=== PATIENT | female | born 1950 | race Caucasian/White ===

== ENCOUNTER → 2019-11-21 08:21 | Outpatient (BNVA) | payer MEDICARE, MEDICAID, SELFPAY | PROVIDERS: Family Provider Family Medicine; PCP Nurse Practitioner Family; Referring Provider Family Medicine; Visit Provider Anesthesiology Pain Medicine | DX: M54.2 Cervicalgia (principal); M54.16 Radiculopathy, lumbar region; M51.36 Other intervertebral disc degeneration, lumbar region; M43.06 Spondylolysis, lumbar region; M48.061 Spinal stenosis, lumbar region without neurogenic claudication; M47.816 Spondylosis without myelopathy or radiculopathy, lumbar region; M54.9 Dorsalgia, unspecified; F17.210 Nicotine dependence, cigarettes, uncomplicated; Z79.891 Long term (current) use of opiate analgesic | CPT/HCPCS: 99204 ==

== ENCOUNTER 2019-12-03 08:22 | Outpatient (CLI) | payer MEDICARE, MEDICAID, SELFPAY ==
--- NOTE | 2019-12-03 08:45 | MR_ITS ---
WS: [id number] MRI LUMBAR SPINE NONCONTRAST HISTORY: M54.16 Radiculopathy, lumbar region COMPARISON: None available. TECHNIQUE: Sagittal and axial multisequence imaging is submitted. Moderate increase in thoracic kyphosis. Mild degenerative disc disease throughout the cervical and th oracic spine. There is facet joint arthritis at T10-11 with mild encroachment upon the RIGHT lateral thecal sac. Posterior lumbar alignment is normal. Disc desiccation and narrowing throughout the lumbar spine. Endplate osteophytes are small at all lev els. Schmorl's node defect along the superior endplate of L3. There is an area of decreased signal on the T1 sequences within the adjacent L2 and L3 endplates. Increased signal in the adjacent endplates of L3 and L4 to the RIGHT. Conus terminates normally at L1-2 disc level. L1-L2: Bilateral mild facet arthropathy, LEFT greater than RIGHT and osteophytic ridging. Mild LEFT f oraminal stenosis. L2-L3: Diffuse annular disc bulging with moderate ligamentum flavum hypertrophy and facet arthritis. Slightly greater degenerative changes on the LEFT. There is a broad-based LEFT foraminal disc protrus ion contacting the LEFT L2 nerve root. Moderate LEFT foraminal stenosis. L3-L4: Mild annular disc bulging and osteophytic ridging. Facet joint arthritis and ligamentum flavum hypertrophy. There is mild bilateral foraminal narrowing. L4-L5: Diffuse annular disc bulging and small osteophytes. Mild ligamentum flavum arthritis and facet arthritis. No central stenosis. Moderate to severe RIGHT and mild LEFT foraminal stenosis. L5-S1: Mild annular disc bulging and osteophytic ridging. Mild facet joint arthritis. Central disc pr otrusion with annular fissure without contact on the thecal sac. Moderate to severe RIGHT and mild LE FT foraminal stenosis. Visualized retroperitoneum is negative for acute process. Mild atherosclerosis aorta. MR/MR lumbar spine wo con* [id number] IMPRESSION: 1. Moderate to severe RIGHT foraminal stenosis at L4-5 and L5-S1 due to combin ation of degenerative factors as above. 2. Moderate LEFT foraminal stenosis at L2-3 with a small LEFT foraminal disc p rotrusion contributing to the stenosis. 3. Multilevel degenerative disc disease with multifocal areas of marrow edema and osteochondrosis. No adjacent inflammatory process or fluid to suggest infec tion.
--- NOTE | 2019-12-03 10:43 | XRR_ITS ---
PROCEDURE INFORMATION: Exam: XR Lumbosacral Spine, 2 or 3 Views Exam date and time: 12/03/2019 11:00 AM Age: 69 years old Clinical indication: Patient HX: Chronic low back pain TECHNIQUE: Imaging protocol: XR of the lumbosacral spine, 2 or 3 views. COMPARISON: MR lumbar spine wo con* [id number] 12/03/2019 9:33 AM FINDINGS: Vertebrae: Osteopenia. Multilevel degenerative change. Anatomic alignment. No instability. Gastrointestinal tract: Bowel dilatation and prominent stool. Vasculature: Prominent vascular calcification with a 3.9 cm calcified abdominal aortic aneurysm. XR/XR lumbar spine f/e only [id number] IMPRESSION: 1. Multilevel degenerative change. 2. Prominent vascular calcification with a 3.9 cm calcified abdominal aortic aneurysm.
== END 2019-12-03 08:23 | disposition home or self-care (01) ==
LOC: RADSHAW 08:29
PROVIDERS: PCP Nurse Practitioner Family; Visit Provider Anesthesiology Pain Medicine
DX: G89.29 Other chronic pain (principal); M48.061 Spinal stenosis, lumbar region without neurogenic claudication; M51.36 Other intervertebral disc degeneration, lumbar region; R60.0 Localized edema
CPT/HCPCS: 72120; 72148

== ENCOUNTER → 2019-12-05 10:00 | Outpatient (BNVA) | payer MEDICARE, MEDICAID, SELFPAY | PROVIDERS: Family Provider Family Medicine; PCP Nurse Practitioner Family; Visit Provider Anesthesiology Pain Medicine | DX: M54.2 Cervicalgia (principal); M51.36 Other intervertebral disc degeneration, lumbar region; M47.816 Spondylosis without myelopathy or radiculopathy, lumbar region; M54.16 Radiculopathy, lumbar region; M43.06 Spondylolysis, lumbar region; M48.061 Spinal stenosis, lumbar region without neurogenic claudication; M54.9 Dorsalgia, unspecified; F17.210 Nicotine dependence, cigarettes, uncomplicated; Z79.891 Long term (current) use of opiate analgesic | CPT/HCPCS: 99214 ==

== ENCOUNTER → 2019-12-19 13:35 | Outpatient (BNVA) | payer MEDICARE, MEDICAID, SELFPAY | PROVIDERS: Family Provider Family Medicine; PCP Nurse Practitioner Family; Visit Provider Anesthesiology Pain Medicine | DX: M54.16 Radiculopathy, lumbar region (principal); M54.9 Dorsalgia, unspecified; F17.210 Nicotine dependence, cigarettes, uncomplicated | CPT/HCPCS: 64483; 64484; J1040; J3490 ==

== ENCOUNTER → 2020-01-02 13:29 | Outpatient (BNVA) | payer MEDICARE, MEDICAID, SELFPAY | PROVIDERS: Family Provider Family Medicine; PCP Nurse Practitioner Family; Visit Provider Anesthesiology Pain Medicine | DX: M47.816 Spondylosis without myelopathy or radiculopathy, lumbar region (principal); M51.36 Other intervertebral disc degeneration, lumbar region; M48.061 Spinal stenosis, lumbar region without neurogenic claudication; M43.06 Spondylolysis, lumbar region; M54.16 Radiculopathy, lumbar region; M54.9 Dorsalgia, unspecified; M54.2 Cervicalgia; F17.210 Nicotine dependence, cigarettes, uncomplicated; Z79.891 Long term (current) use of opiate analgesic | CPT/HCPCS: 64483; 64484; 99212; J1040; J3490 ==

== ENCOUNTER → 2020-01-17 12:54 | Outpatient (BNVA) | payer MEDICARE, MEDICAID, SELFPAY | PROVIDERS: Family Provider Family Medicine; PCP Nurse Practitioner Family; Visit Provider Anesthesiology Pain Medicine | DX: M51.36 Other intervertebral disc degeneration, lumbar region (principal); M47.816 Spondylosis without myelopathy or radiculopathy, lumbar region; M54.16 Radiculopathy, lumbar region; M48.061 Spinal stenosis, lumbar region without neurogenic claudication; M43.06 Spondylolysis, lumbar region; M54.2 Cervicalgia; M54.9 Dorsalgia, unspecified; F17.210 Nicotine dependence, cigarettes, uncomplicated; Z79.891 Long term (current) use of opiate analgesic | CPT/HCPCS: 99213; 99214 ==

== ENCOUNTER → 2020-03-24 12:46 | Outpatient (BNVA) | payer MEDICARE, MEDICAID, SELFPAY | PROVIDERS: Family Provider Family Medicine; PCP Nurse Practitioner Family; Visit Provider Anesthesiology Pain Medicine | DX: M54.9 Dorsalgia, unspecified (principal); M51.36 Other intervertebral disc degeneration, lumbar region; M47.816 Spondylosis without myelopathy or radiculopathy, lumbar region; M54.16 Radiculopathy, lumbar region; M43.06 Spondylolysis, lumbar region; M48.061 Spinal stenosis, lumbar region without neurogenic claudication; M54.12 Radiculopathy, cervical region; F17.210 Nicotine dependence, cigarettes, uncomplicated; Z79.891 Long term (current) use of opiate analgesic | CPT/HCPCS: 99214 ==

== ENCOUNTER 2020-04-08 09:04 | Outpatient (CLI) | payer MEDICARE, MEDICAID, SELFPAY ==
--- NOTE | 2020-04-08 09:30 | MR_ITS ---
WS: [id number] MRI CERVICAL SPINE HISTORY: M54.12 - Radiculopathy, cervical region COMPARISON: None available. Normal cervical alignment. Moderate disc space narrowing and desiccation at C5-6. Remaining levels de monstrate mild degenerative disc disease. Signal within the cervical cord is normal. Visualized posterior fossa is unremarkable. Craniocervical junction, C1 and C2 relationship, odontoid process and soft tissues are normal. C2-C3: Normal. C3-C4: Normal. C4-C5: Very mild annular disc bulging. Mild osteophytic ridging contributing to mild narrowing of the foramen. No high-grade stenosis. C5-C6: Mild diffuse osteophytic ridging and a shallow RIGHT paracentral disc protrusion. Mild central stenosis with moderate bilateral foraminal stenosis. C6-C7: Diffuse osteophytic ridging with bilateral foraminal disc osteophyte complexes. Mild central s tenosis with moderate bilateral foraminal stenosis. C7-T1: Mild osteophytic ridging. Seen on the sagittal sequences is increased soft tissue thickening anterior to C6 and C7 of uncertain etiology. MR/MR cervical spin wo con* [id number] IMPRESSION: 1. Multilevel moderate degenerative disc disease and stenoses. 2. Mild central stenosis at C5-6 and C6-7 with moderate bilateral foraminal st enosis due to disc osteophyte disease. 3. Mild bilateral foraminal narrowing at C4-5. 4. Increased soft tissue thickening in the prevertebral space at the C6-7 leve l. Suggest follow-up neck CT with IV contrast for further evaluation and to exc lude infectious process or neoplasm. No prior studies for comparison.
== END 2020-04-08 09:05 | disposition home or self-care (01) ==
PROVIDERS: PCP Nurse Practitioner Family; Visit Provider Anesthesiology Pain Medicine
DX: M54.12 Radiculopathy, cervical region (principal); M50.30 Other cervical disc degeneration, unspecified cervical region; M48.02 Spinal stenosis, cervical region
CPT/HCPCS: 72141

== ENCOUNTER 2020-04-17 13:43 | Outpatient (CLI) | payer MEDICARE, MEDICAID, SELFPAY ==
--- NOTE | 2020-04-17 13:30 | USCV_ITS ---
Lissa Anne Age: 69 Gender: F : 1950 Exam Date: 04/17/2020 14:26 Ordering Phys: Lisbet Wang MD ([email or web address]) Technologist: Radha Brown Exam Location[place] [facility] [place] Indication: SEVERAL TIA'S Risk Factors: TIA Previous Vascular Surgery: None Right Brachial BP: / Left Brachial BP: / Right Left Velocity (cm/s) Spectral Plaque Velocity (cm/s) Spectral Plaque Syst/Diast Broadening Syst/Diast Broadening 92.60/ 33.10 Prox CCA 73.20 / 24.40 78.30/ 34.20 Mid CCA 68.50 / 23.40 67.30/ 27.60 Hetro Distal CCA 72.20 / 22.50 Hetro 184.00/47.40 Hetro Prox ICA 86.50 / 34.00 Hetro 165.00/32.20 Mid ICA 100.20/ 34.80 100.70/27.70 Distal ICA 102.70/ 32.30 122.20 Hetro ECA 100.40 Hetro 2.35 ICA/CCA 1.50 Antegrade Vertebral Antegrade 48.90/ 15.60 cm/s 42.10/ 15.90 cm/s Bi Subclavian Tri 93.80 56.40 CONCLUSIONS Right ICA stenosis 50-69%. Moderate atheromatous plaque right carotid bulb/ICA. Left ICA stenosis <50%. Mild atheromatous plaque left carotid bulb/ICA. Normal antegrade Doppler flow noted in the right vertebral artery. Normal antegrade Doppler flow noted in the left vertebral artery. Artemio Zepeda MD (Electronically Signed) Final Date: 17 April 2020 17:45 S
== END 2020-04-17 13:44 | disposition home or self-care (01) ==
LOC: US 13:50
PROVIDERS: PCP Nurse Practitioner Family; Visit Provider Internal Medicine Cardiovascular Disease
DX: I65.23 Occlusion and stenosis of bilateral carotid arteries (principal)
CPT/HCPCS: 93880

== ENCOUNTER → 2020-09-24 08:46 | Outpatient (BNVA) | payer MEDICARE, MEDICAID, SELFPAY | PROVIDERS: PCP Nurse Practitioner Family; Visit Provider Anesthesiology Pain Medicine | DX: M25.562 Pain in left knee (principal); M25.561 Pain in right knee; M19.90 Unspecified osteoarthritis, unspecified site; M51.36 Other intervertebral disc degeneration, lumbar region; M47.816 Spondylosis without myelopathy or radiculopathy, lumbar region; M54.16 Radiculopathy, lumbar region; M43.06 Spondylolysis, lumbar region; M48.061 Spinal stenosis, lumbar region without neurogenic claudication; M54.9 Dorsalgia, unspecified; M54.2 Cervicalgia | CPT/HCPCS: 20610; 99214; J1030; J3490 ==

== ENCOUNTER 2020-10-13 10:52 | Outpatient (CLI) | payer MEDICARE, MEDICAID, SELFPAY ==
--- NOTE | 2020-10-13 10:57 | XRR_ITS ---
PROCEDURE INFORMATION: Exam: XR Bilateral Knees, Standing AP Exam date and time: 10/13/2020 10:57 AM Age: 69 years old Clinical indication: Condition or disease; Type of osteoarthritis not specified; Bilateral; Prior surgery; Surgery type: Arthroscopic RT knee; Patient HX: [place] a pop in left knee; Additional info: M19.90 - unspecified osteoarthritis, unspecified site TECHNIQUE: Imaging protocol: XR of the bilateral knees. Views: Standing AP. COMPARISON: No relevant prior studies available. FINDINGS: Bones/joints: No evidence of fracture. The joint spaces are preserved. Possible sequela of old osteochondral lesion/posttreatment change projecting in the mesial/central articular surface of the right medial femoral condyle. Soft tissues: Normal. XR/[place] [id number] IMPRESSION: No acute osseous abnormalities of the knees.
== END 2020-10-13 10:53 | disposition home or self-care (01) ==
LOC: RAD 10:56
PROVIDERS: PCP Nurse Practitioner Family; Visit Provider Anesthesiology Pain Medicine
DX: M17.0 Bilateral primary osteoarthritis of knee (principal)
CPT/HCPCS: 73565

== ENCOUNTER 2020-11-12 14:38 | Outpatient (CLI) | payer MEDICARE, MEDICAID, SELFPAY | END 2020-11-12 14:39 | LOC: RAD 11-26 09:06 | PROVIDERS: PCP Nurse Practitioner Family; Visit Provider Orthopaedic Surgery | DX: M25.562 Pain in left knee (principal) | CPT/HCPCS: 73560 ==

== ENCOUNTER 2020-11-24 09:47 | Outpatient (CLI) | payer MEDICARE, MEDICAID, SELFPAY ==
[2020-11-24 11:06] VITALS: BMI 28.3
--- NOTE | 2020-11-24 11:07 | ECG_ITS ---
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 Interpretive Statements NAME OF STUDY: LEXISCAN SESTAMIBI STRESS TEST INDICATION: Chest Pain; Shortness of Breath PROCEDURE: At the baseline, the blood pressure was 137/96 mmHg, oxygen saturation of 98% with a heart rate of 70 bpm. The electrocardiogram showed possible normal sinus rhythm with normal axis with nonspecific ST depression. Baseline artifact. The Lexiscan was infused over a period of 20 seconds. A total of 0.4 milligrams of Lexiscan was infused. The stress phase was continued for a total of 5 minutes. Heart rate at the end of the stress phase was 85 bpm, oxygen saturation of 93% with a blood pressure of 122/64 mm Hg. The EKG at the peak infusion revealed sinus rhythm with no significant ST-T wave changes. Sestamibi was injected 20 seconds after the Lexiscan infusion. Blood pressure at the end of the recovery phase was 121/63mm Hg with a heart rate of 81 beats per minute and oxygen saturation of 92%. CONCLUSION: 1. No significant EKG changes with the LexiScan infusion. 2. No LexiScan induced chest pain or cardiac arrhythmia. 3. Normal blood pressure and heart rate response. 4. Sestamibi/sestamibi perfusion scan pending; see separate report. Electronically Signed On 12-01-2020 12:50:37 CDT by Lisbet Wang M.D. [email or web address]
--- NOTE | 2020-11-24 11:07 | NMCV_ITS ---
NM nissa perf SPECT r/s* [id number] Lissa Anne Age: 70 Gender: F : 1950 Exam Date: 11/24/2020 11:07 Ordering Phys: Lisbet Wang MD ([email or web address]) Technologist: ELIAS Ferrera Exam Location: [facility] Indications: SHORTNESS OF BREATH STRESS TEST Please see separate stress test report in [facility] for full findings IMAGE PROTOCOL Rest/Stress 1 Lexiscan Day Radiopharmaceutical Dose (mCi) Administration Site Administered by Rest: Tc-99m 10.7 IV ELIAS Tomas Sestamibi Stress:Tc-99m 32.4 IV ELIAS Ferrera Sestamielio Rest: 24-Nov-2020 60 Discovery 630 Stress: 24-Nov-2020 30 Discovery 630 0.4mg Lexiscan. Images obtained in supine and prone position. SPECT RESULTS Technical Quality: Excellent Raw Data Analysis: Normal Image Corrections: No attenuation or motion correction applied Summed Stress Score: 0 Summed Rest Score: 0 Summed Difference Score: 0 PERFUSION FINDINGS Very small sized perfusion abnormality of mild severity in apical inferior and apical lateral wall. FUNCTIONAL RESULTS (calculated via Gated SPECT) Stress Image LV EF (%): 77 Stress EDV (mL):83 TID: 0.92 Stress ESV (mL):19 FUNCTIONAL FINDINGS: The left ventricle is normal in size. Transient Ischemia Dilatation of 0.92. There is normal left ventricular systolic function. The left ventricular ejection fraction is normal with a value of 77%. There is normal left ventricular wall thickening with no rehional wall motion abnormality. Normal end diastolic and end systolic volumes. IMPRESSIONS 1. Very small sized reversible perfusion abnormality of mild severity in apical inferior and apical lateral hollis. This may reresent very small area of ischemia in left anterior artery territory. Attenuation artifact cannot be completely ruled out. 2. Overall left ventricular systolic function is normal without regional wall motion abnormalities. 3. The left ventricular ejection fraction is normal with a value of 77%. 4. EKG portion of the study will be reported separately. Lisbet Wang MD (Electronically Signed) Final Date: 30 November 2020 20:58 S
[2020-11-24] MEDS: regadenoson 0.4 Mg/5 ml Syringe IVP (12:05)
[2020-11-24 12:15] VITALS: BP 121/63; PULSE 80
== END 2020-11-24 09:48 | disposition home or self-care (01) ==
PROVIDERS: PCP Nurse Practitioner Family; Visit Provider Internal Medicine Cardiovascular Disease
DX: R07.9 Chest pain, unspecified (principal)
CPT/HCPCS: 78452; 93017; A9500; J2785

== ENCOUNTER 2020-11-26 13:21 | Outpatient (CLI) | payer MEDICARE, MEDICAID, SELFPAY ==
--- NOTE | 2020-11-26 13:45 | MR_ITS ---
WS: [id number] MRI LEFT KNEE NONCONTRAST TECHNIQUE: Axial PD, coronal PD fat sat, coronal PD, sagittal PD, and sagittal PD fat-sat images obta ined. CLINICAL INFORMATION: M25.562 - Pain in left knee COMPARISON: None. FINDINGS: Distal quadriceps and patella tendons are intact. Normal ACL and PCL. Small suprapatellar effusion. H ypertrophic patella. Subcutaneous edema about the left knee. Advanced degenerative narrowing medial j oint compartment with [id number] articulation. Small osteochondral defect involving the medial femo ral condyle. Subchondral edema involving the femoral condyle and tibial plateau. Grade IV chondromala diana medial joint compartment. Medial and lateral collateral ligaments appear intact. Small popliteal cyst measuring 5.2 x 1.0 CM. A dvanced chondromalacia patella. Medial and lateral patellar retinacula appear intact. Chronic thinnin g of the medial and lateral meniscus. Blunting of the posterior horn medial meniscus with complex pos terior horn tear. Chronic intrasubstance signal abnormality involving the lateral meniscus. Periphera l extrusion of the medial meniscus. MR/MR knee LT wo con* [id number] IMPRESSION: 1. Normal ACL and PCL. 2. Moderate suprapatellar effusion with diffuse soft tissue edema about the le ft knee. 3. Advanced joint space narrowing medial joint compartment with [id number] a rticulation and small osteochondral defect. 4. Advanced chondromalacia patella. 5. Complex tear involving the posterior horn medial meniscus with chronic thin dennis of the medial meniscus and peripheral extrusion. 6. Lobulated popliteal cyst measuring 5.2 x 1.0 CM. Outbridge grading:
== END 2020-11-26 13:22 | disposition home or self-care (01) ==
LOC: RADSHAW 13:22
PROVIDERS: PCP Nurse Practitioner Family; Visit Provider Orthopaedic Surgery
DX: M25.462 Effusion, left knee (principal); R60.0 Localized edema; M22.42 Chondromalacia patellae, left knee; S83.232A Complex tear of medial meniscus, current injury, left knee, initial encounter; X58.XXXA Exposure to other specified factors, initial encounter; M71.22 Synovial cyst of popliteal space [Baker], left knee
CPT/HCPCS: 73560; 73721

== ENCOUNTER → 2021-01-15 08:35 | Outpatient (BNVA) | payer MEDICARE, MEDICAID, SELFPAY | PROVIDERS: PCP Nurse Practitioner Family; Visit Provider Anesthesiology Pain Medicine | DX: M54.16 Radiculopathy, lumbar region (principal); M43.06 Spondylolysis, lumbar region; M51.36 Other intervertebral disc degeneration, lumbar region; M47.816 Spondylosis without myelopathy or radiculopathy, lumbar region; M48.061 Spinal stenosis, lumbar region without neurogenic claudication; M25.569 Pain in unspecified knee; M54.2 Cervicalgia; M79.601 Pain in right arm; M79.604 Pain in right leg; M79.605 Pain in left leg; Z79.891 Long term (current) use of opiate analgesic | CPT/HCPCS: 99214 ==

== ENCOUNTER 2021-06-16 14:35 | Outpatient (CLI) | payer MEDICARE, MEDICAID, SELFPAY ==
--- NOTE | 2021-06-16 17:52 | ONC CON_ITS ---
Dr. Christianson New Patient Note Patient: Lissa Anne Unit #: [id number]: 1950 Dicatated By: Cristhian Christianson M.D.Date of Visit: Jun 16, 2021 Onc MED New Patient/Consult Referring Physician: Cedric LOWE Chief Complaint: Anemia. History of Present Illness: This is a 70-year-old woman with iron deficiency anemia. She has been followed in pain clinic by Dr. Christianson for chronic low back pain associated with degenerative disease of the spine. She has multiple other medical illnesses. She has been seeing Jessica Hardin for primary care. At her follow-up visit in April 2021 she reported being very fatigued. Her laboratory studies on 05/19/2021 included CBC which showed hemoglobin low at 9.1 g with hematocrit 30.6%. The red cell indices were hypochromic/microcytic. The white blood cell count was normal at 7800 and the platelet count was normal at 280,000. Her serum iron studies showed low transferrin saturation at 7% and the ferritin level was low at 3 ng/mL, consistent with iron deficiency. She has been very tired for least several months. She is also had a lot of stress. She is still volunteering and doing light work. ECOG score is 1. Her appetite has been okay. She has been craving sweets. She also craves ice. She has gained weight. She has not had fever. She does have episodes of hot flashes/sweating which come and go. She has some sinus congestion, which she attributes to CPAP. She has had occasional wheezing following an episode of pneumonia 2 years ago. She has some cough, but not bad. She has chest pain off and on. She currently has no GI complaints, she does have a history of colonic polyps. Bladder function has been okay. She has chronic pain in the low back. It radiates to both legs. She also has neck pain and she has pain in her knees. She has numbness in her left leg, and she has restless leg syndrome. She also has some anxiety and depression. Past Medical History: Her medical history includes anxiety, carotid artery disease, degenerative arthritis, degenerative disease of the spine, depression, essential tremor, gastroesophageal reflux disease, history of colonic polyps, history of mini strokes, history of nephrolithiasis, hyperlipidemia, obstructive sleep apnea, restless leg syndrome, and type II diabetes. Past Surgical History: Her surgical/procedural history includles arthroscopic right knee surgery, cholecystectomy, and hysterectomy/bilateral salpingectomy-oophorectomy in 1983. Medications: Atorvastatin Calcium 1 Tablet (of 40 mg) Oral daily, Clopidogrel Bisulfate 1 Tablet (of 75 mg) Oral daily, Cyclobenzaprine HCl 1 - 2 Tablet (of 10 mg) Oral t.i.d. PRN, Gabapentin 1 Tablet (of 600 mg) Oral t.i.d., Mobic 1 Tablet (of 15 mg) Oral daily, Pantoprazole Sodium 1 Tablet (of 40 mg) Tablet, enteric coated Oral daily, Propranolol HCl ER 1 Capsule (of 120 mg) Capsule SR 24 HR Oral daily, rOPINIRole HCl 1 - 2 Tablet (of 0.25 mg) Oral at bedtime Allergies: ivp dye, Morphine Sulfate, Penicillins, and Tetanus Immune Globulin. Social History: Ms. Anne is and she is retired. She has been smoking since age 14, mostly 1 to 1-1/2 packs of cigarettes daily. She currently has cut down to 1/2 pack/day. She had weekend alcohol use in the past. She quit drinking about 15 years ago. Family History: Father of a brain tumor at age 61. Mother had diabetes and heart disease. She at age 89. Two brothers are still living. Three brothers are . All 3 had heart disease, 2 had diabetes, and 2 also had melanoma. One sister with complications of diabetes and her other sister with COPD. A paternal aunt had ovarian cancer. Her maternal grandmother and a maternal cousin had colon cancer. Her maternal grandfather had Hodgkin's lymphoma. Review Of Symptoms: Constitutional - She has been feeling very tired for several months. She is also had a lot of stress. She is still volunteering and doing housework. ECOG score is 1. Her appetite has been okay. She has been craving sweets. She also craves ice. She has gained weight. She has not had fever. She has periods of hot flashes and sweating which come and go. ECOG score is 1, Eyes - No change in vision, ENMT - No hearing loss. She has tinnitus. She has sinus congestion, attributable to CPAP. No mouth sores. No sore throat or difficulty swallowing, Hematologic/Lymphatic - She has some bruising. She has no other bleeding manifestations, Respiratory - She has had wheezing occasionally since her pneumonia 2 years ago. She is on CPAP. She has cough, but not bad. No pleuritic pain or hemoptysis, Cardiovascular - She has occasional chest pain, presumed angina. No palpitations, Gastrointestinal - No nausea or vomiting. Her acid reflux is adequately managed with medication. No diarrhea or constipation. She has not been aware of any blood in the stool or black stools. She has had 3 prior colonoscopies. The first reportedly showed 5 polyps, Genitourinary (F) - No dysuria or hematuria. No urinary frequency. She has some hesitancy and she has nocturia 2 or 3 times. She has a history of urinary tract infection. No urgency or incontinence, Musculoskeletal - She has chronic pain in the low back. It radiates to both legs. She also has neck pain, and she has pain in both knees, Integumentary - No skin rash or other skin changes, Neurologic - No headache. She has dizziness. She has numbness in her left leg. She has restless leg syndrome, Psychiatric - She has anxiety and depression. No insomnia. Vital Signs: Performed on Jun 16, 2021 15:31: 9, 6, 31.37 (HIGH), 2.12 sq.m, 69 in, 97 %, 97 /min, 18 /min, 122/70 mm(hg), 98.4 F, and 212.4 lbs (HIGH). Physical Examination: Constitutional - She looks pretty good generally, Eyes - Sclerae nonicteric. Conjunctivae clear, ENMT - No lesions noted in the oral cavity, Neck - No mass or thyromegaly, Hematologic/Lymphatic - No cervical, clavicular, or axillary adenopathy, Respiratory - Lungs show slightly coarse breath sounds bilaterally, Cardiovascular - Heart rhythm is regular. There is a II/ systolic murmur. There is gallop or rub noted, Abdomen - Soft and non-tender. Liver and spleen are not enlarged. There is no abdominal mass or ascites noted and there is no inguinal adenopathy, Extremities - No edema. Pedal pulses are palpable bilaterally, Integumentary - No rashes. No suspicious skin lesions noted, Neurologic - No focal neurologic deficits noted. Problem List: 1. Iron deficiency anemia. It is uncertain to what extent it may be due to GI blood loss versus inadequate oral iron absorption. 2. She has a history of colonic polyps. 3. Hyperlipidemia. 4. Type 2 diabetes. 5. Carotid artery disease. 6. GERD. 7. Obstructive sleep apnea. 8. Degenerative arthritis/degenerative disease of the spine. 9. History of nephrolithiasis. 10. History of mini strokes. 11. Essential tremor. 12. Anxiety/depression. Problems Addressed with this Encounter and Plan: Patient with iron deficiency anemia. It is uncertain to what extent it may be due to GI blood loss versus inadequate oral iron absorption. However, I am going to arrange for her to have GI evaluation with EGD/colonoscopy, as she has a known history of colonic polyps and she would be due for surveillance anyway. She will begin oral iron supplementation with ferrous sulfate 325 mg daily. If she does not respond adequately or does not tolerate the ferrous sulfate, she will be given the option to have parenteral iron replacement. She is scheduled to have follow-up lab studies with Jessica Hardin in 1 month, and she will then have further evaluation as indicated. Signed By: Cristhian Christianson M.D. <<Signature on File>>
== END 2021-06-16 14:36 | disposition home or self-care (01) ==
LOC: ONCMED 14:41
PROVIDERS: PCP Nurse Practitioner Family; Visit Provider Internal Medicine Medical Oncology
DX: D50.9 Iron deficiency anemia, unspecified (principal); E78.5 Hyperlipidemia, unspecified; E11.9 Type 2 diabetes mellitus without complications; I65.23 Occlusion and stenosis of bilateral carotid arteries; K21.9 Gastro-esophageal reflux disease without esophagitis; G47.33 Obstructive sleep apnea (adult) (pediatric); M47.9 Spondylosis, unspecified; G25.0 Essential tremor; F41.9 Anxiety disorder, unspecified; F32.A Depression, unspecified; Z79.899 Other long term (current) drug therapy; Z86.73 Personal history of transient ischemic attack (TIA), and cerebral infarction without residual deficits
CPT/HCPCS: 99204

== ENCOUNTER 2021-08-27 06:42 | Day surgery (SDC) | payer MEDICARE, MEDICAID, SELFPAY ==
[2021-08-24 13:32] VITALS: BMI 29.5
[2021-08-27 07:02] VITALS: BP 120/87; PULSE 101; RESP 18; TEMP 36.1; O2SAT 94
[2021-08-27] MEDS: sodium chloride 0.9% 1,000 ML 30 ML IV (07:10)
--- NOTE | 2021-08-27 07:14 | P.ANESASSM_ITS ---
Pre-Anesthetic Assessment Height/Weight: Height 1.75 m Weight 90.718 kg Temp Pulse Resp BP Pulse Ox 97.0 F L 101 H 18 120/87 94 08/27/21 07:02 08/27/21 07:02 08/27/21 07:02 08/27/21 07:02 08/27/21 07:02 Preop Diagnosis: Iron deficiency anemia Operation Date: 08/27/21 08:15 Proposed Procedures p Colonoscopy 91024/15776/d50.9(Not Applicable) - Gilberto Davis MD s EGD(Not Applicable) - Gilberto Davis MD Familial anesthetic complications: None Was Beta Chaparro taken within 24 hours: Yes Was Clonidine taken within 24 hours: N/A Last intake: Intake Last Liquid Date 08/26/21 Last Liquid Time 22:00 Last Solid Date 08/25/21 Social Tobacco and No alcohol Exam alert, oriented x 3, clear to auscultation bilaterally and regular rate & rhythm Airway Mallampati: Class III Dentition: false Pulmonary Sleep Apnea (cpap) CV/HEM Anemia and Hypertension negative stress test 21 GI Gastroesophageal Reflux Disease Metabolic Diabetes Mellitus and Hyperlipidemia Neuropsych Mild carotid artery stenosis 3 TIAs Anesthetic Plan ASA status: 3 Anesthesia: MAC Risk of > 500 ml blood loss (7ml/kg in children): No Medications/Allergies Home Medications Medication Instructions Recorded Confirmed Last Taken Type atorvastatin 40 mg tablet 40 mg PO DAILY 11/21/19 08/27/21 08/27/21 History cyclobenzaprine 10 mg tablet 10 mg PO TID 11/21/19 08/27/21 08/26/21 History duloxetine 60 mg capsule,delayed 60 mg PO DAILY 11/21/19 08/27/21 08/26/21 History release sprinkle gabapentin 600 mg tablet 600 mg PO TID 11/21/19 08/27/21 08/26/21 History metformin 500 mg tablet 500 mg PO BID 11/21/19 08/27/21 08/26/21 History pantoprazole 40 mg tablet,delayed 40 mg PO DAILY 11/21/19 08/27/21 08/26/21 History release (Protonix) propranolol 120 mg capsule,24 120 mg PO DAILY 11/21/19 08/27/21 08/27/21 History hr,extended release ropinirole 0.25 mg tablet 0.25 mg PO DAILY 11/21/19 08/27/21 08/26/21 History nitroglycerin 0.4 mg sublingual 0.4 mg SUBLINGUAL Q5M PRN #25 tab 04/02/20 08/27/21 Unknown Rx tablet clopidogrel 75 mg tablet (Plavix) 75 mg PO DAILY #1 tab 01/20/21 08/27/21 08/23/21 Rx meloxicam 7.5 mg tablet 7.5 mg PO DAILY 02/12/21 08/27/21 08/26/21 History cyanocobalamin (vitamin B-12) 1,000 mcg SUBCUT .Q month ml 08/13/21 08/27/21 Unknown History 1,000 mcg/mL injection solution ferrous sulfate 27 mg iron tablet 27 mg PO DAILY 08/13/21 08/27/21 08/26/21 H istory semaglutide (Ozempic) 0.25 mg SUBCUT DIRECTED 08/13/21 08/27/21 Unknown History tramadol 50 mg tablet 50 mg PO Q8H PRN tab 08/13/21 08/27/21 08/26/21 History Allergies Allergy/AdvReac Type Severity Reaction Status Date / Time morphine Allergy ALGY-Hives Verified 08/27/21 06:56 Penicillins Allergy ALGY-Hives Verified 08/27/21 06:56 Current Medications Generic Name Dose Route Start Last Admin Trade Name Freq PRN Reason Stop Dose Admin Sodium Chloride 1,000 mls @ 30 mls/hr 08/27/21 06:45 08/27/21 07:10 Sodium Chloride 0.9% IV 08/28/21 06:44 30 mls/hr .Q24H GABRIEL Administration PFSH Anesthesia Medical History Bilateral carotid artery stenosis Diabetes mellitus Hyperlipidemia intermediate (current) use of opiate analgesic MAME (obstructive sleep apnea) Pain management contract signed RLS (restless legs syndrome) Tremor of both hands Surgical History Hx of cholecystectomy Hx of hysterectomy Hx of knee surgery Family History Other Brain tumor CHF (congestive heart failure) COPD (chronic obstructive pulmonary disease) Dementia Diabetes Denies family history of Anesthesia complication Social History Smoking and tobacco status: current every day smoker cigarettes Packs smoked per day: 10 Alcohol intake: never History of recent travel: No Data Anesthesia Cardiac Studies: Sestamibi Stress Test (Cardiology) 11/24/20
--- NOTE | 2021-08-27 07:30 | P.HP_ITS ---
Same Day Surgery H&P Indication for Procedure/HPI DATE OF PROCEDURE: August 27, 2021 CHIEF COMPLAINT/INDICATIONFOR SURGICAL PROCEDURE: Bowel issues PREOP DIAGNOSIS: Iron deficiency anemia PLANNED PROCEDURE: Operation Date: 08/27/21 08:15 Proposed Procedures p Colonoscopy 29200/37358/d50.9(Not Applicable) - Gilberto Davis MD s EGD(Not Applicable) - Gilberto Davis MD 07/01/21 This is a pleasant 70 years old female patient diagnosed with iron deficiency anemia.? Patient is referred to my practice for endoscopic evaluation in the form of EGD and colonoscopy.? Patient reports also a change in her stool caliber that took place recently, had a colonoscopy about 4 years ago and polyps were found.? Reports her first cousin had history of colon cancer as well as a grandma and patient reports blood on my tongue yet she denies any bleeding per rectum. 08/27/21 Patient comes today for diagnostic EGD and colonoscopy ROS All systems have been reviewed negative except as for the above or per problem list. Medications/Allergies* Home Medications Medication Instructions Recorded Confirmed Type atorvastatin 40 mg tablet 40 mg PO DAILY 11/21/19 08/27/21 History cyclobenzaprine 10 mg tablet 10 mg PO TID 11/21/19 08/27/21 History duloxetine 60 mg capsule,delayed 60 mg PO DAILY 11/21/19 08/27/21 History release sprinkle gabapentin 600 mg tablet 600 mg PO TID 11/21/19 08/27/21 History metformin 500 mg tablet 500 mg PO BID 11/21/19 08/27/21 History pantoprazole 40 mg tablet,delayed 40 mg PO DAILY 11/21/19 08/27/21 History release (Protonix) propranolol 120 mg capsule,24 120 mg PO DAILY 11/21/19 08/27/21 History hr,extended release ropinirole 0.25 mg tablet 0.25 mg PO DAILY 11/21/19 08/27/21 History meloxicam 7.5 mg tablet 7.5 mg PO DAILY 02/12/21 08/27/21 History cyanocobalamin (vitamin B-12) 1,000 mcg SUBCUT .Q month ml 08/13/21 08/27/21 History 1,000 mcg/mL injection solution ferrous sulfate 27 mg iron tablet 27 mg PO DAILY 08/13/21 08/27/21 History semaglutide (Ozempic) 0.25 mg SUBCUT DIRECTED 08/13/21 08/27/21 History tramadol 50 mg tablet 50 mg PO Q8H PRN tab 08/13/21 08/27/21 History Allergies/Adverse Reactions Allergy/AdvReac Type Severity Reaction Status Date / Time morphine Allergy ALGY-Hives Verified 08/27/21 07:33 Penicillins Allergy ALGY-Hives Verified 08/27/21 07:33 Current Medications: Generic Name Dose Route Start Last Admin Trade Name Freq PRN Reason Stop Dose Admin Sodium Chloride 1,000 mls @ 30 mls/hr 08/27/21 06:45 08/27/21 07:10 Sodium Chloride 0.9% IV 08/28/21 06:44 30 mls/hr .Q24H GABRIEL Administration Pertinent History/Comorbid Conditions* Medical History (Updated 07/03/21 @ 08:43 by Gilberto Davis MD) Bilateral carotid artery stenosis Diabetes mellitus Hyperlipidemia snf (current) use of opiate analgesic MAME (obstructive sleep apnea) Pain management contract signed RLS (restless legs syndrome) Tremor of both hands Surgical History (Updated 04/02/20 @ 10:40 by Lisbet Wang MD) Hx of cholecystectomy Hx of hysterectomy Hx of knee surgery Family History (Updated 04/02/20 @ 10:35 by Aranza Tripathi RN) Brain tumor Diabetes CHF (congestive heart failure) Dementia COPD (chronic obstructive pulmonary disease) Denies family history of Anesthesia complication Social History Smoking and tobacco status: current every day smoker cigarettes Packs smoked per day: 10 Alcohol intake: never History of recent travel: No Pertinent Exam Findings alert, oriented x 3, regular rate & rhythm and procedure specific exam findings (Abdominal exam nontender nondistended soft) Recommendations Surgery/Procedure today (Diagnostic EGD and colonoscopy) Coding Level of Care Code Acute 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
[2021-08-27 09:13] VITALS: BP 118/72; PULSE 75; RESP 16; TEMP 36.2; O2SAT 97
[2021-08-27 09:24] VITALS: BP 113/72; PULSE 74; RESP 18; O2SAT 100
--- NOTE | 2021-08-27 14:26 | ANE.PACU2 ---
Inpatient post-anesthesia follow up: Airway intact: Yes Vital signs: Temperature 97.2 F Pulse Rate 74 Respiratory Rate 18 Blood Pressure 113/72 Pulse Oximetry 100 Oxygen Delivery Me thod Room Air Oxygen Flow Rate Fraction of Inspir ed Oxygen Hydration adequate: Yes Nausea and vomiting: No Pain level: 1 Mental status: Baseline
== END 2021-08-27 09:34 | disposition home or self-care (01) ==
PROVIDERS: PCP Nurse Practitioner Family; Visit Provider Surgery
PROC: 0DJD8ZZ Inspection of Lower Intestinal Tract, Via Natural or Artificial Opening Endoscopic (ICD-10-PCS; CPT 45378; principal; 2021-08-27 08:15)
PROC: 0DJ08ZZ Inspection of Upper Intestinal Tract, Via Natural or Artificial Opening Endoscopic (ICD-10-PCS; CPT 43235; 2021-08-27 08:15)
DX: D50.9 Iron deficiency anemia, unspecified (principal); D12.0 Benign neoplasm of cecum; K44.9 Diaphragmatic hernia without obstruction or gangrene; K29.70 Gastritis, unspecified, without bleeding; Z80.0 Family history of malignant neoplasm of digestive organs; E11.9 Type 2 diabetes mellitus without complications; E78.5 Hyperlipidemia, unspecified; G47.33 Obstructive sleep apnea (adult) (pediatric); Z79.891 Long term (current) use of opiate analgesic; F17.210 Nicotine dependence, cigarettes, uncomplicated; K21.9 Gastro-esophageal reflux disease without esophagitis; Z86.73 Personal history of transient ischemic attack (TIA), and cerebral infarction without residual deficits
CPT/HCPCS: 43239; 45380; 88305; 88342; J2704; J7030

== ENCOUNTER 2021-11-20 16:54 | Outpatient (CLI) | payer MEDICARE, MEDICAID, SELFPAY ==
--- NOTE | 2021-11-20 17:15 | USCV_ITS ---
Lissa Anne Age: 71 Gender: F : 1950 Exam Date: 11/20/2021 17:08 Ordering Phys: Lisbet Wang MD ([email or web address]) Technologist: RANJEET [place] [facility] [place]: PRIOR CAROTID STENOSIS Risk Factors: Previous Vascular Surgery: Right Brachial BP: / Left Brachial BP: / Right Left Velocity (cm/s) Spectral Plaque Velocity (cm/s) Spectral Plaque Syst/Diast Broadening Syst/Diast Broadening 65.10/ 16.40 Prox CCA 62.40 / 16.40 65.70/ 19.10 Mid CCA 79.50 / 26.90 62.40/ 25.00 Distal CCA 74.90 / 25.00 167.80/46.60 Prox ICA 93.00 / 30.70 83.10/ 26.40 Mid ICA 71.60 / 28.80 81.60/ 34.20 Distal ICA 77.20 / 29.70 88.60 ECA 113.10 2.55 ICA/CCA 1.17 Vertebral 65.70/ 20.80 cm/s 30.20/ 12.10 cm/s Subclavian 76.00 126.8 0 FINDINGS No significant changes since 04/24 CONCLUSIONS Right ICA stenosis 50-69%. Moderate atheromatous plaque right carotid bulb/ICA. Left ICA stenosis <50%. Moderate atheromatous plaque left carotid bulb/ICA. Normal antegrade Doppler flow noted in the right vertebral artery. Normal antegrade Doppler flow noted in the left vertebral artery. Artemio Zpeeda MD (Electronically Signed) Final Date: 23 November 2021 16:58 S
== END 2021-11-20 16:55 | disposition home or self-care (01) ==
PROVIDERS: PCP Nurse Practitioner Family; Visit Provider Internal Medicine Cardiovascular Disease
DX: I65.23 Occlusion and stenosis of bilateral carotid arteries (principal)
CPT/HCPCS: 93880

== ENCOUNTER → 2022-12-28 10:47 | Outpatient (BNVA) | payer MEDICARE, MEDICAID, SELFPAY | PROVIDERS: PCP Nurse Practitioner Family; Visit Provider Anesthesiology Pain Medicine | DX: M54.16 Radiculopathy, lumbar region (principal); M51.36 Other intervertebral disc degeneration, lumbar region; M47.816 Spondylosis without myelopathy or radiculopathy, lumbar region; M43.06 Spondylolysis, lumbar region; M48.061 Spinal stenosis, lumbar region without neurogenic claudication; M50.30 Other cervical disc degeneration, unspecified cervical region; M48.02 Spinal stenosis, cervical region | CPT/HCPCS: 99214 ==

== ENCOUNTER 2023-01-04 09:06 | Outpatient (CLI) | payer MEDICARE, MEDICAID, SELFPAY ==
--- NOTE | 2023-01-04 09:30 | MR_ITS ---
WS: [id number] MRI LUMBAR SPINE NONCONTRAST HISTORY: M54.16 - Radiculopathy, lumbar region, chronic back pain increasing in intensity. Bilateral radiculopathy. COMPARISON: 12/03/2019 TECHNIQUE: Sagittal and axial multisequence imaging is submitted. Increase in thoracic kyphosis. Multilevel disc space narrowing and degeneration. Small central disc b ulges at multiple levels in the mid to lower thoracic spine. No high-grade stenosis. L1 and L2 retrolisthesis by 2 mm. No fractures or marrow edema. Schmorl's node superior endplate of L 3. Disc bases are all desiccated with disc space narrowing. Progression of degenerative changes involvin g the endplates of the lumbar vertebral bodies. Conus terminates normally at L1-2 disc level. L1-L2: Moderate annular disc bulging encroaching upon the ventral thecal sac and narrowing the subart icular recesses. Very minimal progression in encroachment upon the subarticular recesses. Bilateral b ut greatest on the LEFT narrowing of the subarticular recesses. Mild bilateral foraminal stenosis. L2-L3: Mild annular disc bulging and osteophytic ridging. Mild facet and ligamentum flavum hypertroph y. Reidentified is a broad-based LEFT foraminal disc protrusion encroaching into the foramina. Simila r to the prior study. Mild central, bilateral subarticular recess and RIGHT foraminal stenosis. Moder ate LEFT foraminal stenosis. L3-L4: Diffuse asymmetric disc bulging. The disc bulging is new since the prior study. There is a lar ge extruded disc extending into the RIGHT subarticular recess along the thecal sac. There is signific ant deformity on the RIGHT lateral thecal sac. Extruded disc extends over a length of 1.8 cm. This is a new disc extrusion since the prior study. The additional broad-based disc protrusion centrally wit h progression on the thecal sac. There is at least moderate central and bilateral subarticular recess stenosis. More significant displacement of the RIGHT L4 traversing nerve root. Moderate to severe RI GHT foraminal stenosis and mild LEFT foraminal stenosis. L4-L5: Mild annular disc bulging and facet arthritis. There is encroachment upon the ventral thecal s ac and subarticular recesses. Mild central and bilateral subarticular recess and LEFT foraminal steno sis. Moderate RIGHT foraminal stenosis. L5-S1: Diffuse osteophytic ridging and annular disc bulging disc and osteophyte encroachment upon the subarticular recesses. Bilateral moderate facet arthritis. Moderate bilateral foraminal stenosis. Paravertebral soft tissues are negative. IMPRESSION: 1. Multilevel advanced degenerative disc disease and facet arthritis and spondylosis with mild progre ssion since 12/03/2019. 2. L3-4: Large extruded RIGHT subarticular recess disc is new. This is a large extruded disc extendin g into the RIGHT subarticular recess with significant mass effect upon the RIGHT lateral thecal sac a nd the nerve roots. 3. L1-2: Moderate bilateral subarticular recess and foraminal stenosis. 4. L2-3: Broad-based LEFT foraminal disc protrusion similar to the prior exam. Moderate LEFT foramina l stenosis. Additional mild central, bilateral subarticular recess and RIGHT foraminal stenosis at L2 -3. 5. L3-4: Moderate central, bilateral subarticular recess with moderate to severe RIGHT foraminal and mild LEFT foraminal stenosis. 6. L4-5: Moderate RIGHT foraminal stenosis, mild central, bilateral subarticular recess and LEFT fora jaime stenosis. 7. Facet joint arthritis with moderate bilateral foraminal stenosis. Very similar to the prior study.
== END 2023-01-04 09:07 | disposition home or self-care (01) ==
PROVIDERS: PCP Nurse Practitioner Family; Visit Provider Anesthesiology Pain Medicine
DX: M51.16 Intervertebral disc disorders with radiculopathy, lumbar region (principal); M48.061 Spinal stenosis, lumbar region without neurogenic claudication; M47.817 Spondylosis without myelopathy or radiculopathy, lumbosacral region
CPT/HCPCS: 72148

== ENCOUNTER → 2023-01-11 09:21 | Outpatient (BNVA) | payer MEDICARE, MEDICAID, SELFPAY | PROVIDERS: PCP Nurse Practitioner Family; Visit Provider Anesthesiology Pain Medicine | DX: M54.2 Cervicalgia; M51.36 Other intervertebral disc degeneration, lumbar region; M47.816 Spondylosis without myelopathy or radiculopathy, lumbar region; M54.16 Radiculopathy, lumbar region; M43.06 Spondylolysis, lumbar region; M48.061 Spinal stenosis, lumbar region without neurogenic claudication; M25.569 Pain in unspecified knee | CPT/HCPCS: 99215 ==

== ENCOUNTER → 2023-01-20 14:15 | Outpatient (BNVA) | payer MEDICARE, MEDICAID, SELFPAY | PROVIDERS: PCP Nurse Practitioner Family; Visit Provider Anesthesiology Pain Medicine | DX: M54.16 Radiculopathy, lumbar region (principal) | CPT/HCPCS: 64483; 64484; 99212; G0463; J1100; J3490 ==

== ENCOUNTER → 2023-01-24 12:57 | Outpatient (BNVA) | payer MEDICARE, MEDICAID, SELFPAY | PROVIDERS: PCP Nurse Practitioner Family; Visit Provider Otolaryngology | DX: H90.0 Conductive hearing loss, bilateral (principal); H61.23 Impacted cerumen, bilateral; Z71.1 Person with feared health complaint in whom no diagnosis is made | CPT/HCPCS: 69210; 99203 ==

== ENCOUNTER → 2023-02-03 13:28 | Outpatient (BNVA) | payer MEDICARE, MEDICAID, SELFPAY | PROVIDERS: PCP Nurse Practitioner Family; Visit Provider Anesthesiology Pain Medicine | DX: M54.16 Radiculopathy, lumbar region (principal) | CPT/HCPCS: 64483; 64484; J1100; J3490 ==

== ENCOUNTER → 2023-02-28 10:39 | Outpatient (BNVA) | payer MEDICARE, MEDICAID, SELFPAY | PROVIDERS: PCP Nurse Practitioner Family; Visit Provider Anesthesiology Pain Medicine | DX: M51.36 Other intervertebral disc degeneration, lumbar region; M47.816 Spondylosis without myelopathy or radiculopathy, lumbar region; M54.16 Radiculopathy, lumbar region; M43.06 Spondylolysis, lumbar region; M48.061 Spinal stenosis, lumbar region without neurogenic claudication; M48.02 Spinal stenosis, cervical region | CPT/HCPCS: 99213 ==

== ENCOUNTER → 2023-03-15 10:14 | Outpatient (BNVA) | payer MEDICARE, MEDICAID, SELFPAY | PROVIDERS: PCP Nurse Practitioner Family; Visit Provider Podiatrist Foot & Ankle Surgery | DX: E11.42 Type 2 diabetes mellitus with diabetic polyneuropathy (principal); L84 Corns and callosities; B35.1 Tinea unguium; G62.9 Polyneuropathy, unspecified; L60.0 Ingrowing nail; E11.69 Type 2 diabetes mellitus with other specified complication; Z79.84 Long term (current) use of oral hypoglycemic drugs | CPT/HCPCS: 11055; 11721; 99203 ==

== ENCOUNTER → 2023-05-03 13:24 | Outpatient (BNVA) | payer MEDICARE, MEDICAID, SELFPAY | PROVIDERS: PCP Nurse Practitioner Family; Visit Provider Nurse Practitioner Family | DX: L57.0 Actinic keratosis (principal); L82.0 Inflamed seborrheic keratosis; L82.1 Other seborrheic keratosis; L57.8 Other skin changes due to chronic exposure to nonionizing radiation; D22.5 Melanocytic nevi of trunk; L30.4 Erythema intertrigo; Z80.8 Family history of malignant neoplasm of other organs or systems | CPT/HCPCS: 17000; 17110; 99204 ==

== ENCOUNTER 2023-05-06 12:53 | Outpatient (CLI) | payer MEDICARE, MEDICAID, SELFPAY ==
--- NOTE | 2023-05-06 13:02 | USCV_ITS ---
Lissa Anne Age: 72 Gender: F : 1950 Exam Date: 05/06/2023 14:34 Ordering Phys: Vladimir Shaw DPM Technologist: Elan Fortune Exam Location: [facility] [place] Indication: LE Pain RIGHT LEFT Brachial 155.00 mmHg Brachial 138.00 mmHg Pressure (mmHg) Waveform Pressure (mmHg) Waveform 162.00 High Thigh 138.00 164.00 Above Knee 133.00 132.00 Below Knee 154.00 132.00 ANALYTICS LEADER 161.00 133.00 DPA 129.00 0.86 Ankle/Brachial Index 1.04 89.00 Pre-Exercise Toe Pressure 85.00 0.57 Pre-Exercise Toe/Brachial Index 0.55 FINDINGS Resting MIKALA 0.86 on the right side and 1.04 on the left side Resting TBI of 0.57 on the right and 0.55 on the left CONCLUSIONS Slightly diminished resting MIKALA and TBI on the right side, suggesting mild peripheral artery disease Normal resting MIKALA with slightly diminished resting TBI on the left side suggesting mild peripheral artery disease, involving the distal vessels Dr Lorarine Jha MD [facility] (Electronically Signed) Final Date: 23 May 2023 09:12 S
== END 2023-05-06 12:54 | disposition home or self-care (01) ==
LOC: RAD 12:55
PROVIDERS: PCP Nurse Practitioner Family; Visit Provider Podiatrist Foot & Ankle Surgery
DX: R09.89 Other specified symptoms and signs involving the circulatory and respiratory systems (principal); M79.605 Pain in left leg; M79.604 Pain in right leg; R93.6 Abnormal findings on diagnostic imaging of limbs
CPT/HCPCS: 93923

== ENCOUNTER → 2023-06-06 10:07 | Outpatient (BNVA) | payer MEDICARE, MEDICAID, SELFPAY | PROVIDERS: PCP Nurse Practitioner Family; Visit Provider Podiatrist Foot & Ankle Surgery | DX: B35.1 Tinea unguium (principal); G62.9 Polyneuropathy, unspecified; L84 Corns and callosities; L60.0 Ingrowing nail; E11.69 Type 2 diabetes mellitus with other specified complication; Z79.84 Long term (current) use of oral hypoglycemic drugs | CPT/HCPCS: 11721 ==

== ENCOUNTER 2023-06-14 13:07 | Inpatient (IN) | payer MEDICARE, MEDICAID, SELFPAY ==
[2023-06-14] VITALS (13 sets, daily range): BP systolic 120–181; BP diastolic 80–130; PULSE 57–93; RESP 16–18; TEMP 36.6–37.1; O2SAT 91–96; BMI 28.7; BMI 28.4
--- NOTE | 2023-06-14 12:27 | ECG_ITS ---
[facility] Test Date: 2023-06-14 Pat Name: Lissa Anne Department: Room: Gender: Female Stiff Leg Operator: : 1950 Requested By: Jesus Judd Order Number: [id number] Sharita MD: Lorraine Jha M.D. Measurements Intervals [place] Rate: 83 P: 41 OR: 155 QRS: -9 QRSD: 85 T: 9 QT: 352 QTc: 414 Interpretive Statements SINUS RHYTHM No previous ECG available for comparison Electronically Signed On 06-14-2023 23:05:53 CDT by Lorraine Jha M.D. [id number]
--- NOTE | 2023-06-14 13:13 | CT_ITS ---
WS: [id number] CT HEAD NONCONTRAST HISTORY: STROKE ALERT TECHNIQUE: Contiguous axial imaging performed through the brain in 2.5 mm imaging. Bone and soft tiss ue windows. Sagittal and coronal reformats reviewed. All CT scans at [facility] use at least one of these dose optimization techniques: automated exposure control; mA and/or kV adjustment per pa tient size (includes targeted exams where dose is matched to clinical indication); or iterative recon struction. DLP: 1088.78 mGy COMPARISON: None available. No acute intracranial hemorrhage, midline shift or mass effect. Mild atrophy and small vessel ischemic disease. Ventricles: Normal size with no hydrocephalus. No inferior displacement of the cerebellar tonsils. Paranasal sinuses: As visualized are clear. Mastoid air cells: Well pneumatized. Calvarium and scalp: Skull is intact with no soft tissue edema or swelling. IMPRESSION: 1. No acute intracranial hemorrhage or edema. 2. Mild atrophy with mild small vessel ischemic disease. No prior infarct.
--- NOTE | 2023-06-14 13:17 | ED_ITS ---
HPI - Neuro Symptoms/Deficit 2 General: Chief Complaint: Neuro Symptoms/Deficit Stated Complaint: Stroke Alert Time Seen by Provider: 06/14/23 13:11 Source: patient Mode of arrival: EMS History of Present Illness: 72-year old female presents emergency ro om via EMS as a stroke alert. She went to bed around 7 or 8:00 last night woke up at 3 AM with stumbling and had some weakness on her right side she went back to sleep and then woke up at 11 notified her family. she arrived here as a stroke alert via EMS at around 1307. She is awake and alert answers questions appropriately Dr. Kennedy responded stroke alert and did see the patient in the ER see his consultation note. She was complaining of some neck pain as well. Onset (ago): hour(s) Time: 13:07 Last Observed Normal: 19:30 Location: right face, right arm and right leg Severity: mild Quality: weak Relieving factors: none Exacerbating factors: none Context: other (Woke up with symptoms) On Anticoagulants: No Associated symptoms: Deny chest pain, cough, diaphoresis, fevers/chills, headache(s), anorexia, malaise, nausea, seizures, short of breath, syncope, tingling, vertigo, vomiting or weakness Treatments Prior to Arrival: none Review of Systems 2 Const: Denies: fever(s), chills, malaise or diaphoresis Card: Denies: chest pain or syncope Resp: Denies: dyspnea GI: Denies: abdominal pain, nausea or vomiting : Denies: dysuria, urinary frequency or urinary urgency Musc: Denies: neck pain or back pain Skin/Breast: Denies: rash Neuro: Denies: headache(s) or vertigo PFSH ED 2 PFSH: Medical History Hx of stroke associated with dehydration Bilateral carotid artery stenosis MAME (obstructive sleep apnea) Diabetes mellitus shelter (current) use of opiate analgesic Pain management contract signed Hyperlipidemia Tremor of both hands RLS (restless legs syndrome) Surgical History History of colonoscopy Hx of hysterectomy Hx of knee surgery Hx of cholecystectomy Family History Other Brain tumor COPD (chronic obstructive pulmonary disease) Congestive heart failure (CHF) Dementia Diabetes Denies family history of Anesthesia complication Social History Smoking and tobacco/nicotine status: current every day tobacco/nicotine user cigarettes Packs smoked per day: 10 Alcohol intake: never Substance/Drug Use: never NIH stroke score 2 NIHSS: Level Of Consciousness - 1a: 0 Level Of Consciousness Questions - 1b: Both Correct Level Of Consciousness Commands - 1c: Both Correct Best Gaze - 2: Normal Visual Qiu - 3: No Visual Loss Facial Palsy - 4: Minor Paralysis Motor Arm Right - 5: Drift Motor Arm Left - 5: No Drift Motor Leg Right - 6: No Drift Motor Leg Left - 6: No Drift Limb Ataxia - 7: P resent In One Limb Sensory - 8: Normal Best Language - 9: Mild/Moderate Aphasia Dysarthia - 10: Normal Extinction And Inattention - 11: 0 Score: Total Score: 4 Physical Exam 2 Const: COMMON NORMALS: no acute distress GENERAL APPEARANCE: cooperative and comfortable ORIENTATION/CONSCIOUSNESS: Yes awake, Yes oriented to person, Yes oriented to place and Yes oriented to time HENMT: COMMON NORMALS: normocephalic, atraumatic and hearing grossly normal bilaterally HEAD & SCALP: normocephalic and atraumatic Resp: COMMON NORMALS: normal respiratory effort, No retractions, No use of accessory muscles and clear to auscultation bilaterally AUSCULTATION: clear to auscultation bilaterally Cardio: COMMON NORMALS: regular rate, regular rhythm and No murmurs present (Cardio) RATE: regular rate RHYTHM: regular rhythm GI: COMMON NORMALS: Soft to palpation and No hepatosplenomegaly present A USCULTATION: Yes normoactive bowel sounds PALPATION: Yes Soft to palpation, No Tenderness to palpation present (GI), No Guarding due to palpation present (GI) and Yes No hepatosplenomegaly present Extremity: COMMON NORMALS: normal to inspection, capillary refill normal, no clubbing, cyanosis or edema, no calf tenderness and no pedal edema Neuro: SENSORIUM/ORIENTATION: Yes oriented to person, Yes oriented to place and Yes oriented to time Skin: COMMON NORMALS: no rashes or lesions noted GENERAL SKIN EXAM: no rashes or lesions noted Course 2 Vital Signs: Vital signs: Vital Signs Temperature 97.8 F 06/14/23 13:16 Pulse Rate 80 06/14/23 14:00 Respiratory Rate 16 06/14/23 13:16 Blood Pressure 152/130 06/14/23 14:00 Pulse Oximetry 92 06/14/23 14:00 Oxygen Delivery Me thod Room Air 06/14/23 14:00 MDM - Neuro Symptoms/Deficit Medical Decision Making C-spine shows arthritic changes but no acute fracture. CT head shows no acute hemorrhage or acute or subacute stroke. Patient notes outside of the window for thrombolytics her stroke score is 4 with some of her stroke score points beings rather subtle in either event she is not a candidate for thrombolytics. She did have a carotid duplex in 2020 and 2021 showed some moderate stenosis. Dr. Kennedy seen the patient concurs with treatment plan will admit for mild acute CVA for further workup and medication for secondary prevention. Medical Records I reviewed the patient's medical records. Lab Data I reviewed the patient's lab results. 06/14/23 13:35 06/14/23 13:35 Laboratory Results WBC 7.40 10^3/uL (3.29-11.43) 06/14/23 13:35 RBC 4.91 10^6/uL (3.85-5.65) 06/14/23 13:35 Hgb 15.40 g/dL (11.27-16.99) 06/14/23 13:35 Hct 45.0 % (36-47) 06/14/23 13:35 MCV 91.6 fl (85-98) 06/14/23 13:35 MCH 31.4 pg (27-33) 06/14/23 13:35 MCHC 34.2 g/dL (30-55) 06/14/23 13:35 RDW 12.5 % (12.1-15.1) 06/14/23 13:35 Plt Count 216 10^3/cmm (157-399) 06/14/23 13:35 MPV 9.4 fL (7.4-10.4) 06/14/23 13:35 Neut % (Auto) 67.3 % 06/14/23 13:35 Lymph % (Auto) 19.7 % 06/14/23 13:35 [place] % (Auto) 9.9 % 06/14/23 13:35 Eos % (Auto) 2.3 % 06/14/23 13:35 Baso % (Auto) 0.5 % 06/14/23 13:35 Neut # (Auto) 4.98 10^3/uL (1.8-7.7) 06/14/23 13:35 Lymph # (Auto) 1.5 10^3/uL (0.8-4.8) 06/14/23 13:35 [place] # (Auto) 0.7 10^3/uL (0.2-0.9) 06/14/23 13:35 Eos # (Auto) 0.2 10^3/uL (0.0-0.8) 06/14/23 13:35 Baso # (Auto) 0.0 10^3/uL (0.0-0.1) 06/14/23 13:35 Nucleated RBC % (auto) 0 % 06/14/23 13:35 Nucleated RBCs # 0.0 /100WBC 06/14/23 13:35 PT 12.60 SECONDS (12.1-14.9) 06/14/23 13:35 INR 0.92 (0.8-1.2) 06/14/23 13:35 APTT 33.1 SECONDS (23.9-36.7) 06/14/23 13:35 Sodium 137 mmol/L (136-145) 06/14/23 13:35 Potassium 4.8 mmol/L (3.5-5.1) 06/14/23 13:35 Chloride 103 mmol/L (98-107) 06/14/23 13:35 Carbon Dioxide 24 mmol/L (22-29) 06/14/23 13:35 Anion Gap 14.8 (5-19) 06/14/23 13:35 BUN 9 mg/dL (8-23) 06/14/23 13:35 Creatinine 0.7 mg/dL (0.5-0.9) 06/14/23 13:35 GFR Calculation 82.7 mL/min (90-130) L 06/14/23 13:35 Glucose 155 mg/dL (65-115) H 06/14/23 13:35 Calculated Osmolality 286 mOsm/kg (285-295) 06/14/23 13:35 Calcium 9.4 mg/dL (8.5-10.5) 06/14/23 13:35 Total Bilirubin 0.5 mg/dL (0.15-1.2) 06/14/23 13:35 AST 13 U/L (0-32) 06/14/23 13:35 ALT 20 U/L (0-33) 06/14/23 13:35 Alkaline Phosphatase 124 U/L (35-105) H 06/14/23 13:35 Total Protein 6.8 g/dL (6.6-8.7) 06/14/23 13:35 Albumin 4.0 g/dL (3.5-5.2) 06/14/23 13:35 Globulin 2.8 g/dL (1.3-4.6) 06/14/23 13:35 All radiology interpretation(s) finalized by discharge Discharge Plan Discharge Patient Disposition: Placed in Observation Clinical Impression: Cerebrovascular accident, Diabetes mellitus Condition: Stable Prescriptions: No Action tramadol 50 mg tablet 50 mg PO Q8H PRN (Reason: pain) ferrous sulfate 27 mg iron tablet 27 mg PO DAILY Ozempic 0.25 mg or 0.5 mg(2 mg/1.5 mL) pen injector 0.25 mg SUBCUT Q7D Rx Instructions: ON TUESDAY metformin 500 mg tablet 500 mg PO BID pantoprazole [Protonix] 40 mg tablet,delayed release (DR/EC) 40 mg PO DAILY atorvastatin 40 mg tablet 40 mg PO DAILY duloxetine 60 mg capsule, delayed rel sprinkle 60 mg PO DAILY ropinirole 0.25 mg tablet 0.25 mg PO DAILY propranolol 120 mg capsule,extended release 24 hr 120 mg PO DAILY (DME) diabetic shoes with 3 inserts See Rx Instructions .Route .MEDSUPPLY Qty: 1 0RF Rx Instructions: As directed to the shoe gustephanie clopidogrel [Plavix] 75 mg tablet 75 mg PO DAILY Qty: 1 0RF Hold Instructions: Resume on 09/02/21. nitroglycerin 0.4 mg tablet, sublingual 0.4 mg sublingual Q5M PRN (Reason: chest pain) Qty: 25 2RF Rx Instructions: do not exceed 3 doses per episode gabapentin 800 mg tablet 800 mg PO TID meloxicam 15 mg tablet 15 mg PO DAILY clonazepam 0.5 mg tablet 0.5 mg PO DAILY PRN (Reason: Anxiety) ketoconazole 2 % cream 1 applic TOPICAL BID solifenacin 10 mg tablet 10 mg PO QAM Referrals: Jessica Hardin [Primary Care Provider] - Coding Level of Care Code ED Talent Acquisition Specialist for Chg Fermin
--- NOTE | 2023-06-14 13:25 | XRR_ITS ---
PROCEDURE INFORMATION: Exam: XR Cervical Spine Exam date and time: 06/14/2023 1:41 PM Age: 72 years old Clinical indication: Injury or trauma; Fall; Other: Pain TECHNIQUE: Imaging protocol: Radiologic exam of the cervical spine. Views: 2 or 3 views. COMPARISON: MR cervical spin wo con* [id number] 04/08/2020 9:22 AM FINDINGS: Bones/joints: Cervical vertebral body heights appear maintained, as does alignment. There is less than optimal visualization disc spaces C5 through C7 level on the lateral views though with suggestion of component of mild degenerative disc disease. Mild spondylotic change involving facets. No fracture or subluxation is seen. Odontoid view appears unremarkable. Soft tissues: No significant soft tissue abnormality. Mild carotid vascular calcification. XR/XR cervical spine 3V* [id number] IMPRESSION: Cervical spondylosis. No acute findings.
--- NOTE | 2023-06-14 13:32 | PM.CONSULT ---
Providers/Reason For Consult Consulting Physician/Specialty*: Leonides Kennedy MD neurology and epilepsy Reason for Consult*: Code stroke emergency department room 13 Primary Care Provider: Jessica Hardin History of Present Illness History of Present Illness Lissa Anne is a 72 year old female with a reported history of TIAs in the past treated with Plavix. According to the patient on the night of 06/13/2023 she was watching the television show The voice and just prior to 10 PM she began to experience dizziness/balance difficulty. The patient stated that she thought it may have been her medications and therefore she ignored the symptoms and went to bed around 10 PM. The patient stated that she woke up at 3 AM on 06/14/2023 and she was experiencing ataxia and right upper extremity weakness and right lower facial weakness. The patient stated that she fell and struck her head in the bathroom. She denied loss of consciousness but stated that she crawled on her way back to her bed and went back to sleep. The patient was reported to wake up later on the morning of 06/14/2023 and stated that she contacted her daughter and her daughter called 911 at approximately 11 AM on 06/14/2023 and the patient was brought to [facility] emergency department. Code stroke was initiated at 12:45 PM on 06/14/2023 reporting the patient's ETA to the [facility] emergency room was 20 minutes out. Patient was evaluated by Dr. Lamb while the patient was still in the CT scanning room and shortly after that she was evaluated by me when she was transferred from the CT scanning room to ER room #13. NIH score = 4 secondary to dysarthria, right lower facial weakness, right upper extremity weakness at approximately 4/5 strength with some ataxia/coordination issues in the right upper extremity. Patient reports chronic right lower extremity weakness secondary to total right knee replacement and chronic low back pain. The patient also reported some neck pain after hitting her head in her bathroom on the morning of 06/14/2023 around [address] scan revealed no acute findings. In view of the patient's last known well being just prior to 10 PM on 06/13/2023, the patient was not a candidate for thrombolytics and no thrombolytics were administered. Glucose Accu-Chek performed by EMS was reported to be 181. Blood pressure in the [facility] emergency room bed #13 blood pressure 181/103 with a heart rate of 86 O2 saturation 95% on room air. Drug allergies: Morphine which resulted in hives Penicillin which resulted in hives Home medications: Plavix 75 mg p.o. every morning Lipitor 40 mg p.o. every evening Flexeril 10 mg p.o. 3 times daily Cymbalta 60 mg p.o. daily Iron sulfate 27 mg p.o. daily Neurontin 600 mg p.o. 3 times daily Metformin 500 mg p.o. twice daily Sublingual nitroglycerin 0.4 mg every 5 minutes as needed for chest pain Protonix 40 mg p.o. daily Inderal ER 120 mg p.o. daily Ropinirole 0.25 mg p.o. daily Semaglutise 0.2 mg per 1.5 mL subcutaneously as directed Tramadol 50 mg p.o. every 8 hours as needed for pain Past medical history: TIAs manifested as dizziness and balance difficulty Conductive hearing loss Hiatal hernia Gastritis Peripheral neuropathy Bilateral carotid stenosis Obstructive sleep apnea Type 2 diabetes mellitus Lumbar spondylosis Lumbar stenosis Hyperlipidemia Tendon issue second toe on the left foot Colon polyps Habits: The patient smokes 1 pack/day. She denied other drug use Social history: The patient lives alone Review of Systems General: Reports: 10 or more systems reviewed and unremarkable except in HPI and below Medications/Allergies Home Medications Medication Instructions Recorded Confirmed Last Taken Type atorvastatin 40 mg tablet 40 mg PO DAILY 11/21/19 06/14/23 06/14/23 History duloxetine 60 mg capsule,delayed 60 mg PO DAILY 11/21/19 06/14/23 06/14/23 History release sprinkle metformin 500 mg tablet 500 mg PO BID 11/21/19 06/14/23 06/14/23 History pantoprazole 40 mg tablet,delayed 40 mg PO DAILY 11/21/19 06/14/23 06/14/23 History release (Protonix) propranolol 120 mg capsule,24 120 mg PO DAILY 11/21/19 06/14/23 06/14/23 History hr,extended release ropinirole 0.25 mg tablet 0.25 mg PO DAILY 11/21/19 06/14/23 06/14/23 History clopidogrel 75 mg tablet (Plavix) 75 mg PO DAILY #1 tab 01/20/21 06/14/23 06/14/23 Rx ferrous sulfate 27 mg iron tablet 27 mg PO DAILY 08/13/21 06/14/23 06/14/23 History semaglutide 0.25 mg or 0.5 mg (2 0.25 mg SUBCUT Q7D 08/13/21 06/14/23 06/09/23 History mg/1.5 mL) subcutaneous pen injector (Ozempic) tramadol 50 mg tablet 50 mg PO Q8H PRN pain 08/13/21 06/14/23 08/26/21 History nitroglycerin 0.4 mg sublingual 0.4 mg sublingual Q5M PRN chest 11/27/21 06/14/23 Unknown Rx tablet pain #25 tabs diabetic shoes with 3 inserts #1 ea 06/06/23 06/14/23 Unknown Rx clonazepam 0.5 mg tablet 0.5 mg PO DAILY PRN Anxiety 06/14/23 06/14/23 Unknown History gabapentin 800 mg tablet 800 mg PO TID 06/14/23 06/14/23 06/14/23 History ketoconazole 2 % topical cream 1 applic topical BID 06/14/23 06/14/23 Unknown History meloxicam 15 mg tablet 15 mg PO DAILY 06/14/23 06/14/23 06/14/23 History solifenacin 10 mg tablet 10 mg PO QAM 06/14/23 06/14/23 06/14/23 History Allergies Allergy/AdvReac Type Severity Reaction Status Date / Time morphine Allergy ALGY-Hives Verified 06/06/23 10:21 Penicillins Allergy ALGY-Hives Verified 06/06/23 10:21 PFSH Acute PFSH: Medical History Hx of stroke associated with dehydration Bilateral carotid artery stenosis MAME (obstructive sleep apnea) 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 Pain management contract signed Hyperlipidemia Tremor of both hands RLS (restless legs syndrome) Surgical History History of colonoscopy Hx of hysterectomy Hx of knee surgery Hx of cholecystectomy Family History Other Brain tumor COPD (chronic obstructive pulmonary disease) Congestive heart failure (CHF) Dementia Diabetes Denies family history of Anesthesia complication Social History Smoking and tobacco/nicotine status: current every day tobacco/nicotine user cigarettes Packs smoked per day: 10 Alcohol intake: never Substance/Drug Use: never Vitals/I&O/Wt Last Vital Signs Temp 97.8 F 06/14/23 13:16 Pulse 93 06/14/23 13:16 Resp 16 06/14/23 13:16 BP 181/103 06/14/23 13:16 Pulse Ox 96 06/14/23 13:16 O2 Del Method Room Air 06/14/23 13:16 Weight last 48 hrs Weight 200 lb Physical Exam Const: OTHER: NIH score = 4 secondary to right lower facial weakness, dysarthria, mild right upper extremity weakness at approximately 4/5 strength, and ataxia in the right upper extremity. Blood pressure 181/103 heart rate 86 O2 saturations 95% on room air. The patient is alert and oriented to person place and situation. Speech dysarthric. Head normocephalic. Neck patient reported tenderness to palpation therefore hard collar was replaced until x-rays are obtained. Cranial nerves II through XII intact except for right lower facial weakness and history of decreased hearing which is chronic. Throat was clear with no obvious tongue weakness. Visual parham appear to be full via confrontation. There were no obvious nystagmus. Extraocular movements intact in all parham of gaze. 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 There was also some ataxia in the right upper extremity. Patient has history of chronic weakness and ataxia in the right leg secondary to reports of chronic back pain and lumbar spinal stenosis. Deep tendon reflexes revealed plantar responses bilaterally there was no clonus. Sensory examination was intact to touch. There was no extinction on double sensory stimulation. Throat clear. Lungs clear. Heart regular rhythm and rate. Extremities were negative for clubbing cyanosis or edema there was abnormality of the second digit of the left foot secondary to contractures of the tendon. Carotid duplex study 11/20/2021 CONCLUSIONS Right ICA stenosis 50-69%. Moderate atheromatous plaque right carotid bulb/ICA. Left ICA stenosis <50%. Moderate atheromatous plaque left carotid bulb/ICA. Noncontrast head CT 06/14/2023: IMPRESSION: 1. No acute intracranial hemorrhage or edema. 2. Mild atrophy with mild small vessel ischemic disease. No prior infarct. A&P Assessment and plan (1) Stroke determined by clinical assessment: Impression: 1. Acute strokelike symptoms manifested as dysarthria, right lower facial weakness and right upper extremity weakness suggestive of left subcortical versus cortical infarction, NIH score =4. Note: Since the patient's last known well was the night of 06/13/2023 just prior to 10 PM and the patient did not present to the [facility] emergency room until 06/14/2023 at approximately 1 PM, the patient was not a candidate for thrombolytics and no thrombolytics were administered. 2. History of TIAs treated with Plavix 3. History of bilateral carotid stenosis reported on carotid duplex study 11/20/2021 revealing Right ICA stenosis 50-69%. Moderate atheromatous plaque right carotid bulb/ICA. Left ICA stenosis <50%. Moderate atheromatous plaque left carotid bulb/ICA. 4. Type 2 diabetes mellitus 5. Lumbar spinal stenosis 6. Neck pain following closed head trauma at home on 06/14/2023 Plan: 1. Recommend obtaining carotid duplex study or perform CT angiogram of the head and neck to assess for progression and carotid stenosis reported on previous carotid duplex study performed on 11/20/2021 2. Continue Lipitor 40 mg p.o. q. evening if no contraindication from medical standpoint 3. Continue Plavix 75 mg p.o. every morning with food for stroke prophylaxis per NIH stroke protocol 4. Neurochecks per stroke protocol 5. Agree with obtaining x-ray or CT of the cervical spine to assess for fracture 6. Recommend occupational therapy, speech therapy and physical therapy consults. Consult Attestations Medical Necessity Statement: Patient evaluated by neurology for code stroke emergency department room #13 on 06/14/2023 Coding Level of Care Code 40938 Diagnoses Stroke determined by clinical assessment I63.9
[2023-06-14 13:48] LABS: Basophils % 0.5 %; Eosinophils # 0.2 10^3/uL (0.0-0.8); Eosinophils % 2.3 %; Lymphocytes # 1.5 10^3/uL (0.8-4.8); Lymphocytes % 19.7 %; Mean Corpuscular HGB Conc 34.2 g/dL (30-55); Mean Corpuscular Hemoglobin 31.4 pg (27-33); Mean Corpuscular Volume 91.6 fl (85-98); Mean Platelet Volume 9.4 fL (7.4-10.4); Monocytes # 0.7 10^3/uL (0.2-0.9); Monocytes % 9.9 %; Neutrophils # 4.98 10^3/uL (1.8-7.7); Neutrophils % 67.3 %; Nucleated Red Blood Cells % 0 %; Platelet Count 216 10^3/cmm (157-399); Red Blood Count 4.91 10^6/uL (3.85-5.65); Red Cell Distribution Width 12.5 % (12.1-15.1)
[2023-06-14 13:57] LABS: INR 0.92 (0.8-1.2)
[2023-06-14 13:58] LABS: Partial Thromboplastin Time 33.1 SECONDS (23.9-36.7)
[2023-06-14 14:15] LABS: Alanine Aminotransferase 20 U/L (0-33); Alkaline Phosphatase 124 U/L (35-105); Anion Gap 14.8 (5-19); Aspartate Amino Transferase 13 U/L (0-32); Blood Urea Nitrogen 9 mg/dL (8-23); Calcium 9.4 mg/dL (8.5-10.5); Carbon Dioxide 24 mmol/L (22-29); Chloride 103 mmol/L (98-107); Creatinine Clr Calc Pharmacy 79.9399; Globulin 2.8 g/dL (1.3-4.6); Glomerular Filtration Rate 82.7 mL/min (90-130); Glucose 155 mg/dL (65-115); Osmolality Calculated 286 mOsm/kg (285-295); Potassium 4.8 mmol/L (3.5-5.1); Sodium 137 mmol/L (136-145); Total Bilirubin 0.5 mg/dL (0.15-1.2); Total Protein 6.8 g/dL (6.6-8.7)
--- NOTE | 2023-06-14 16:39 | USCV_ITS ---
Lissa Anne Age: 72 Gender: F : 1950 Exam Date: 06/14/2023 20:34 Ordering Phys: Robles Guido MD Technologist: MABLE [place] [facility] [place]: RIGHT hemiparesis CVA. Patient is somnolent and only marginally responsive. BP: 123 / 74 HR: 69 Rhythm: Sinus Technical Quality: Adequate MEASUREMENTS (Male / Female) Normal Values 2D ECHO LVOT Diameter 1.3 cm LV Ejection Fraction MOD 2C 42.7 % LV Ejection Fraction 2C AL 43.0 % LA Diameter 2.4 cm Aorta at Sinotubular Diameter 2.6 cm IVC Diameter 1.2 cm M-MODE LA Ao Ratio MM 0.8 AV Cusp Separation MM 1.2 cm DOPPLER MV Peak Velocity 110.0 cm/s MV Area PHT 3.4 cm squared Mitral E to A Ratio 0.8 TV Peak E Velocity 60.0 cm/s PV Peak Velocity 85.0 cm/s FINDINGS Left Ventricle Left ventricle is normal size. LV systolic function is normal with EF of 60-65%. No regional wall motion abnormalities are seen. Grade 1 diastolic dysfunction Right Ventricle Normal in size and function Right Atrium Normal in size. Bubble study does not show intracardiac shunting. Left Atrium Normal in size Mitral Valve Mild mitral annular calcification. Mild mitral regurgitation. Aortic Valve Grossly normal Tricuspid Valve Grossly normal Pulmonic Valve Not well visualized Pericardium Normal Aorta Normal in size IVC Appears to be normal CONCLUSIONS LV systolic function is normal with EF of 60 to 65%. Grade 1 diastolic dysfunction. Bubble study does not show intracardiac shunt Mild mitral regurgitation No comparison studies are available. Natanael Irby MD (Electronically Signed) Final Date: 15 June 2023 11:26 S
--- NOTE | 2023-06-14 16:40 | P.HP_ITS ---
Providers/Chief Complaint 2 Admitting Physician: Robles Guido Primary Care Provider: Jessica Hardin Chief Complaint: Stroke Alert History of Present Illness 72-year-old lady with history of TIAs on Plavix, HLD, DM2, MAME, smoking, experienced symptoms of dizziness and difficulty with her balance last night around 10 PM, went to sleep, around 3 AM woke up and noticed having ataxia on the right side. Fell in the bathroom hitting her head. Reportedly crawled back to bed and fell asleep waking up later in the morning around 11 AM contacting her daughter at that time who then called 911. In ER she was assessed for CVA with finding of persistent focal deficits, stroke code was called, was also assessed by neurology. CT of the head without acute abnormality. She was not found to be a candidate for acute intervention. She is still an active smoker. She does have history of carotid stenosis 50-70% on the right, less than 50% on the left. Review of Systems 2 Const: Denies: fever(s), chills, body aches or malaise ENMT: Denies: throat pain Card: Denies: chest pain, edema, pre-syncope or dyspnea on exertion Resp: Denies: dyspnea, productive cough, change in phlegm color or hemoptysis GI: Denies: abdominal pain, nausea, vomiting or diarrhea : Denies: urinary frequency Skin/Breast: Denies: rash or new lesions Neuro: Reports: weakness in extremities, difficulty walking, frequent falls, Slurred speech present and difficulty communicating thoughts; Denies: headache(s), numbness in extremities, dizziness, confusion or seizure- like activity Medications/Allergies Home Medications Medication Instructions Recorded Confirmed Last Taken Type atorvastatin 40 mg tablet 40 mg PO DAILY 11/21/19 06/14/23 06/14/23 History duloxetine 60 mg capsule,delayed 60 mg PO DAILY 11/21/19 06/14/23 06/14/23 History release sprinkle metformin 500 mg tablet 500 mg PO BID 11/21/19 06/14/23 06/14/23 History pantoprazole 40 mg tablet,delayed 40 mg PO DAILY 11/21/19 06/14/23 06/14/23 History release (Protonix) propranolol 120 mg capsule,24 120 mg PO DAILY 11/21/19 06/14/23 06/14/23 History hr,extended release ropinirole 0.25 mg tablet 0.25 mg PO DAILY 11/21/19 06/14/23 06/14/23 History clopidogrel 75 mg tablet (Plavix) 75 mg PO DAILY #1 tab 01/20/21 06/14/23 06/14/23 Rx ferrous sulfate 27 mg iron tablet 27 mg PO DAILY 08/13/21 06/14/23 06/14/23 History semaglutide 0.25 mg or 0.5 mg (2 0.25 mg SUBCUT Q7D 08/13/21 06/14/23 06/09/23 History mg/1.5 mL) subcutaneous pen injector (Ozempic) tramadol 50 mg tablet 50 mg PO Q8H PRN pain 08/13/21 06/14/23 08/26/21 History nitroglycerin 0.4 mg sublingual 0.4 mg sublingual Q5M PRN chest 11/27/21 06/14/23 Unknown Rx tablet pain #25 tabs diabetic shoes with 3 inserts #1 ea 06/06/23 06/14/23 Unknown Rx clonazepam 0.5 mg tablet 0.5 mg PO DAILY PRN Anxiety 06/14/23 06/14/23 Unknown History gabapentin 800 mg tablet 800 mg PO TID 06/14/23 06/14/23 06/14/23 History ketoconazole 2 % topical cream 1 applic topical BID 06/14/23 06/14/23 Unknown History meloxicam 15 mg tablet 15 mg PO DAILY 06/14/23 06/14/23 06/14/23 History solifenacin 10 mg tablet 10 mg PO QAM 06/14/23 06/14/23 06/14/23 History Allergies Allergy/AdvReac Type Severity Reaction Status Date / Time morphine Allergy ALGY-Hives Verified 06/06/23 10:21 Penicillins Allergy ALGY-Hives Verified 06/06/23 10:21 PFSH Acute 2 PFSH: Medical History Smoking addiction Hx of stroke associated with dehydration Bilateral carotid artery stenosis MAME (obstructive sleep apnea) 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 Pain management contract signed Hyperlipidemia Tremor of both hands RLS (restless legs syndrome) Surgical History History of colonoscopy Hx of hysterectomy Hx of knee surgery Hx of cholecystectomy Family History Other Brain tumor COPD (chronic obstructive pulmonary disease) Congestive heart failure (CHF) Dementia Diabetes Denies family history of Anesthesia complication Social History Smoking and tobacco/nicotine status: current every day tobacco/nicotine user cigarettes Packs smoked per day: 10 Alcohol intake: never Substance/Drug Use: never Vitals/I&O/Wt Last Vital Signs Temp 97.8 F 06/14/23 13:16 Pulse 73 06/14/23 16:00 Resp 16 06/14/23 13:16 BP 153/84 06/14/23 15:30 Pulse Ox 91 06/14/23 16:00 O2 Del Method Room Air 06/14/23 16:00 Weight last 48 hrs Weight 90.718 kg Physical Exam 2 Narrative: Accompanied by her son Const: COMMON NORMALS: patient oriented x3 and alert GENERAL APPEARANCE: c ooperative ORIENTATION/CONSCIOUSNESS: Yes awake HENMT: COMMON NORMALS: oropharynx normal Neck/C-Spine: COMMON NORMALS: no JVD Resp: COMMON NORMALS: normal respiratory effort and clear to auscultation bilaterally AUSCULTATION: clear to auscultation bilaterally Cardio: COMMON NORMALS: no JVD, regular rhythm, S1 normal heart sound present, S2 normal heart sound present and No murmurs present (Cardio) RHYTHM: regular rhythm HEART SOUNDS: S1 normal heart sound present and S2 normal heart sound present GI: COMMON NORMALS: Normal to inspection, nondistended, normoactive bowel sounds present, Soft to palpation and non-tender PALPATION: Yes Soft to palpation Extremity: COMMON NORMALS: no joint enlargement and no pedal edema Neuro: COMMON NORMALS: patient oriented x3 and moves all extremities S ENSORIUM/ORIENTATION: Yes alert OTHER: Does not appear to have difficulty tracking, but does appear to have some disconjugate gaze. There is right-sided facial droop. Minimally slurred speech. Does follow directions readily. Visual parham full to confrontation. No visual extinction. Right upper and lower extremity drift but extremity does not hit bed. But chronic right lower extremity weakness. Able to light touch bilaterally. FNF intact but does have weakness of right upper extremity. Skin: COMMON NORMALS: no rashes or lesions noted GENERAL SKIN EXAM: no rashes or lesions noted Data 06/14/23 13:35 06/14/23 13:35 A&P Assessment and plan (1) Stroke determined by clinical assessment: Reviewed vitals, CBC, INR, CMP, EKG, head CT, C-spine x-ray, ER note, discussed with ER provider, neurology note. EKG on my interpretation was sinus rhythm. Persistent residual focal deficits, prior history of TIAs. On Plavix. Recommendation to continue Plavix, statin. Reassess carotid duplex with history of carotid stenosis. It is very important for her to quit smoking as discussed. Additional assessment by MRI brain, echocardiogram bubble study. Telemetry monitoring. Check lipid profile, A1c Discussed risk of fall. PT, OT, ST assessment. Follow-up with neurology in office. Discussed with her and her son n.p.o. for now, swallow evaluation with risk of aspiration. Discontinue NSAID. (2) Fall: C-spine x-ray and head CT reviewed. Fall precautions, discussed with her and her son. PT, OT assessment. (3) Smoking addiction: Discussed smoking cessation for 3-1/2 minutes, she states that she is not smoking at the moment (while being in the hospital), however, her son confirms that she is an active smoker. Discussed with her, encouraged to quit smoking. She understands that she needs to quit. Discussed nicotine replacement, she is agreeable to nicotine patches plus lozenges at least while in the hospital. Plan DM2: On metformin at home. Check A1c. Accu-Cheks, insulin sliding scale. CC diet once resumed. HLD: Continue statin RLS: Continue ropinirole MAME Attestations 2 Medical Necessity Statement*: Place in observation for additional assessment management following CVA. Diagnoses Stroke determined by clinical assessment I63.9 Fall W19.XXXA Smoking addiction F17.200
--- NOTE | 2023-06-14 17:02 | USCV_ITS ---
Lissa Anne Age: 72 Gender: F : 1950 Exam Date: 06/14/2023 19:56 Ordering Phys: Robles Guido MD Technologist: MABLE Exam Location: [facility] [place] Indication: RIGHT hemiparesis CVA. Patient is somnolent and only marginally responsive. Risk Factors: unknow Previous Vascular Surgery: unknown Right Brachial BP: 123 / 82 Left Brachial BP: / Right Left Velocity (cm/s) Spectral Plaque Velocity (cm/s) Spectral Plaque Syst/Diast Broadening Syst/Diast Broadening 58.20/ 11.50 Min Homo Prox CCA 92.70 / 21.60 Min Homo 56.90/ 10.20 Min Homo Mid CCA 65.00 / 15.60 Min Homo 49.10/ 10.20 Min Homo Distal CCA 67.40 / 19.20 Min Homo 141.40/28.10 Marked Jacob Prox ICA 77.00 / 25.20 Mod Jacob 115.70/28.10 Min Homo Mid ICA 80.60 / 21.60 Min Homo 56.40/ 22.90 Min Homo Distal ICA 68.60 / 26.40 Min Homo 86.70 Mod Jacob ECA 60.20 Min Hetro 2.90 ICA/CCA 1.20 Antegrade Vertebral Antegrade 44.70/ 13.20 cm/s 42.10/ 10.70 cm/s Tri Subclavian Tri 56.80 66.40 FINDINGS Comparison:. 11/19/21 Diffuse bilateral scattered calcified plaque and intimal thickening throughout the common carotid arteries and extending through the bifurcation. Elevated systolic velocity in the ICA's. Antegrade vertebral arteries. CONCLUSIONS Right ICA stenosis 50-69%. Left ICA stenosis < 50%. Significant plaque in the bifurcations. No interval change in stenosis since prior exam. Dr. Twyla Zuniga DO (Electronically Signed) Final Date: 15 June 2023 07:37 S
[2023-06-14] MEDS: heparin 5,000 unit/mL INJ 1 mL 5000 UNIT SUBCUT (18:07)
[2023-06-14] MEDS: nicotine 21 mg Patch 1 PATCH TRANSDERMA (18:07)
[2023-06-14] MEDS: sodium chloride 0.9% 1,000 ML 100 ML IV (18:08)
[2023-06-14 18:48] LABS: Add Urine Microscopic? NO; Charge for UA Resulting for Rev
[2023-06-14 19:02] LABS: Bilirubin Urine Neg (Negative); Blood Urine Neg (Negative); Glucose Urine UA Norm (Normal); Ketones Urine Negative (Negative); Leukocyte Esterase Urine Negative (Negative); Nitrate Urine Negative (Negative); Protein Urine Neg (Negative); Specific Gravity, Urine 1.015 (1.005-1.030); Urine Appearance Clear (CLEAR); Urine Color Yellow (Yellow); Urobilinogen Urine Norm (Negative); pH Urine 6 (5-7)
[2023-06-14] MEDS: gabapentin 400 mg Capsule 800 MG PO (21:30)
[2023-06-14] MEDS: TRAMadol 50 mg Tablet PO (21:50)
[2023-06-14 22:28] LABS: Amphetamines Screen Urine Negative (Negative); Barbiturates Screen Urine Negative (Negative); Benzodiazepines Screen Urine Negative (Negative); Cocaine Screen Urine Negative (Negative); Opiate Screen Urine Negative (Negative); PCP Screen Urine Negative (Negative); THC Screen Urine Negative (Negative)
[2023-06-15] VITALS (12 sets, daily range): BP systolic 117–151; BP diastolic 71–87; PULSE 80–94; RESP 16–19; TEMP 36.3–36.7; O2SAT 89–98
[2023-06-15 00:05] LABS: Glucose Point of Care 120 mg/dL (70-110)
[2023-06-15] MEDS: sodium chloride 0.9% 1,000 ML 100 ML IV (03:48)
[2023-06-15] MEDS: heparin 5,000 unit/mL INJ 1 mL 5000 UNIT SUBCUT ×2 (04:59→17:13)
[2023-06-15 05:06] LABS: Estmated Average Glucose 154
[2023-06-15 05:29] LABS: Chol HDL Ratio 4.06 mg/dL (0.0-4.40); Cholesterol 138 mg/dL (0-200); HDL Cholesterol 34 mg/dL (60-100); LDL Cholesterol Calculated 61 mg/dL (50-129); LDL HDL Ratio 1.79 RATIO (0.00-3.22); Triglycerides 214 mg/dL (0-150)
[2023-06-15 06:29] LABS: Glucose Point of Care 124 mg/dL (70-110)
--- NOTE | 2023-06-15 08:34 | XRR_ITS ---
PROCEDURE INFORMATION: Exam: XR Chest Exam date and time: 06/15/2023 8:19 AM Age: 72 years old Clinical indication: Shortness of breath; Additional info: Hypoxia TECHNIQUE: Imaging protocol: Radiologic exam of the chest. Views: 1 view. COMPARISON: CR (NECK, ) 06/14/2023 1:41 PM FINDINGS: Lungs: Scarring versus platelike atelectasis left lower lung. A 1 cm nodule is suspected in the lateral right upper lobe. Otherwise, unremarkable. Pleural spaces: Unremarkable. No pleural effusion. No pneumothorax. Heart/Mediastinum: Unremarkable. No cardiomegaly. Bones/joints: Mild multilevel spondylosis. Otherwise, unremarkable. XR/XR chest 1V portable [id number] IMPRESSION: 1. Scarring versus platelike atelectasis left lower lung. 2. Possible 1 cm nodule right upper lobe. Consider a chest CT for this.
[2023-06-15] MEDS: pantoprazole DR 40 mg Tablet PO (09:04)
[2023-06-15] MEDS: clopidogrel 75 mg Tablet PO (09:04)
[2023-06-15] MEDS: gabapentin 400 mg Capsule 800 MG PO ×3 (09:04→20:33)
[2023-06-15] MEDS: ropinirole 0.25 mg Tablet PO (09:04)
[2023-06-15] MEDS: atorvastatin 40 mg Tablet PO (09:04)
[2023-06-15] MEDS: duloxetine 60 mg Capsule PO (09:30)
[2023-06-15 11:27] LABS: Glucose Point of Care 195 mg/dL (70-110)
[2023-06-15] MEDS: insulin lispro 100 unit/1 mL SUBCUT ×2 (11:49→20:38)
[2023-06-15] MEDS: ipratropium-albuterol 3 mL Neb INHALATION ×2 (15:35→20:13)
[2023-06-15 16:23] LABS: Adenovirus Not Detected (NOT DETECT); Chlamydia Pneumoniae Not Detected (NOT DETECT); Coronavirus 229E,HKU1,NL63,OC4 Not Detected (NOT DETECT); Human Metapneumovirus Not Detected (NOT DETECT); Human Rhinovirus/Enterovirus Not Detected (NOT DETECT); Influenza A Not Detected (NOT DETECT); Influenza A H1 Not Detected (NOT DETECT); Influenza A H1-2009 Not Detected (NOT DETECT); Influenza A H3 Not Detected (NOT DETECT); Influenza B Not Detected (NOT DETECT); Mycoplasma Pneumoniae Not Detected (NOT DETECT); Parainfluenza Virus Type 1 Not Detected (NOT DETECT); Parainfluenza Virus Type 2 Not Detected (NOT DETECT); Parainfluenza Virus Type 3 Not Detected (NOT DETECT); Parainfluenza Virus Type 4 Not Detected (NOT DETECT); Respiratory Syncytial Virus A Not Detected (NOT DETECT); Respiratory Syncytial Virus B Not Detected (NOT DETECT); SARS-COV-2 Not Detected (NOT DETECT)
--- NOTE | 2023-06-15 16:39 | MR_ITS ---
WS: [id number] MRI HEAD WITHOUT CONTRAST TECHNIQUE: Sagittal T1, T2 axial, T2 axial FLAIR, axial and coronal T1 images, axial susceptibility w eighted imaging, axial diffusion weighted images, and coronal T2 images were obtained. CLINICAL INFORMATION: cva COMPARISON: CT head 06/14/2023 FINDINGS: 9 mm focus of restricted diffusion in the LEFT thalamus compatible with acute ischemia. Mild associat ed edema. No significant mass effect or midline shift. No other foci of restricted diffusion. Mild small vessel changes. Moderate parenchymal volume loss. N ormal posterior fossa. Normal vascular flow voids at the skull base. No extra-axial fluid collections . No evidence of mass or mass effect. Mild mucosal thickening in the ethmoid air cells. Normal posterior nasopharynx. Mastoid air cells are well aerated. Normal optic chiasm and pituitary infundibulum. Moderate symmetri c atrophy temporal lobes and hippocampal formations. IMPRESSION: 1. 9 mm focus of restricted diffusion in the LEFT thalamus compatible with acute ischemia. Mild asso ciated edema. No significant mass effect or midline shift. 2. Mild small vessel changes with moderate parenchymal volume loss. 3. No hemosiderin on the susceptibility weighted images. Notified Robles Guido MD at 06/15/2023 1:41 PM.
[2023-06-15] MEDS: nicotine 21 mg Patch 1 PATCH TRANSDERMA (16:40)
[2023-06-15 17:09] LABS: Glucose Point of Care 120 mg/dL (70-110)
[2023-06-15] MEDS: budesonide 0.5 mg/2 mL Neb INHALATION (20:13)
[2023-06-15 20:25] LABS: Glucose Point of Care 141 mg/dL (70-110)
--- NOTE | 2023-06-15 21:04 | P.PN_ITS ---
Subjective 2 Subjective: Today she is feeling somewhat better. She has significantly less difficulty speaking. Ambulated with physical therapy with just some weakness in right upper extremity when using a walker. Denies chest pain or pressure. Denies shortness of breath. Discussed with her did have a lower oxygen saturation earlier this morning, we obtained a chest x-ray. Vitals/I&O/Wt Last Vital Signs Temp 97.4 F L 06/15/23 19:43 Pulse 85 06/15/23 20:15 Resp 16 06/15/23 20:15 BP 131/81 06/15/23 19:43 Pulse Ox 97 06/15/23 20:15 O2 Del Method Room Air 06/15/23 20:15 06/15/23 06/15/23 06/15/23 06:59 14:59 22:59 Intake Total 966.667 / 533.311 1560.667 / 1501.667 240 / 1741.667 Output Total 300 / 400 900 / 900 Balance 666.667 / 375.381 4101.667 / 1501.667 -660 / 841.667 Weight last 48 hrs Weight 94.71 kg Weight 89.857 kg Weight 90.718 kg Physical Exam 2 Narrative: Accompanied by her niece. Const: COMMON NORMALS: patient oriented x3 and alert GENERAL APPEARANCE: c ooperative ORIENTATION/CONSCIOUSNESS: Yes awake HENMT: COMMON NORMALS: oropharynx normal Neck/C-Spine: COMMON NORMALS: no JVD Resp: COMMON NORMALS: normal respiratory effort and clear to auscultation bilaterally AUSCULTATION: clear to auscultation bilaterally Cardio: COMMON NORMALS: no JVD, regular rhythm, S1 normal heart sound present, S2 normal heart sound present and No murmurs present (Cardio) RHYTHM: regular rhythm HEART SOUNDS: S1 normal heart sound present and S2 normal heart sound present GI: COMMON NORMALS: Normal to inspection, nondistended, normoactive bowel sounds present, Soft to palpation and non-tender PALPATION: Yes Soft to palpation Extremity: COMMON NORMALS: no joint enlargement and no pedal edema Neuro: COMMON NORMALS: patient oriented x3 and moves all extremities S ENSORIUM/ORIENTATION: Yes alert OTHER: Does not appear to have difficulty tracking, but does appear to have some disconjugate gaze. There is improved right-sided facial droop. Today without slurred speech. Does follow directions readily. Visual parham full to confrontation. No visual extinction. Improved strength/drift upper extremities. Skin: COMMON NORMALS: no rashes or lesions noted GENERAL SKIN EXAM: no rashes or lesions noted Data 06/14/23 13:35 06/14/23 13:35 A&P Assessment and plan (1) Stroke determined by clinical assessment: Reviewed vitals, echocardiogram, carotid Doppler, had MRI. Discussed with radiologist. Noted small thalamic stroke 9 mm in size, small amount of surrounding edema. She is showing improvement in symptoms today although still unsteady gait. Discussed further risk factor management, quitting smoking, she is certain that she is not smoking anymore. Would stop and avoid NSAIDs as well (meloxicam). Long-term will benefit from optimization of hypertension as well. Reviewed A1c also, discussed with her diabetes is under reasonable control A1c is 7. Discussed echocardiogram, no intracardiac shunt noted on bubble study, normal EF, grade 1 diastolic dysfunction. Discussed carotid Doppler, noted right-sided carotid stenosis, but no worse than previously, perhaps slightly better possibly due to some technical differences and studies. Discussed also with her son. Do suspect that she should not improvement likely from some improving edema around the stroke and there may be some minor further improvement of her symptoms but given she had a CVA likely will have residual focal deficits. Would benefit from rehabilitation and case management is working with her and family regarding options for rehabilitation. (2) Hypoxia: Oxygen saturation noted low this morning down as low as 89%. Discussed with her and her son. We obtained a chest x-ray, respiratory viral panel. Son also reports that she has been having productive cough. With still having facial droop although did well with speech therapy, concern is for possibility of aspiration with productive cough, hypoxia, CVA. Requesting modified barium swallow evaluation to assess for possible oropharyngeal dysphagia, aspiration. Reviewed chest x-ray, noted scarring versus platelike atelectasis in left lower lung. Requesting incentive spirometer. Incidentally noted 1 cm nodule right upper lobe, should follow-up outpatient. Otherwise no signs of pneumonia, has been afebrile. No leukocytosis. Will follow-up CBC. With possible bronchitis, added breathing treatments. Will request flutter valve. Respiratory viral panel reviewed, negative. Continue to encourage smoking cessation. Pending assessment with MBS. Aspiration precautions. (3) Fall: C-spine x-ray and head CT reviewed. Fall precautions, discussed with her and her son. PT, OT assessment. At risk of fall, would benefit from further rehabilitation. Case management working patient and family guarding options including going to [facility] with Medicaid versus possible private pay for SNF. Patient's son states that she is unable to private pay, lives alone. He is concerned that shorter stay with medication may not be enough. Discussed with case management to continue working with him. Within 2 weeks. It should be obvious whether she is recovering up to be able to return home safely or alternative arrangements may need to be made at that time, discussed consideration in case of lack of improvement and lack of social support, living alone consideration may be given to long-term placement at [facility] in that case alternatively again options would be private pay, or possibly moving in with family with continued therapy with home health versus outpatient. (4) Smoking addiction: Discussed smoking cessation for 3-1/2 minutes, she states that she is not smoking at the moment (while being in the hospital), however, her son confirms that she is an active smoker. Discussed with her, encouraged to quit smoking. She understands that she needs to quit. Discussed nicotine replacement, she is agreeable to nicotine patches plus lozenges at least while in the hospital. Plan DM2: On metformin at home. Reviewed A1c. Accu-Cheks, insulin sliding scale. CC diet HLD: Continue statin RLS: Continue ropinirole MAME Attestations 2 Medical Necessity Statement*: Admission of over 2 midnights required for additional assessment of hypoxia assessment for oropharyngeal dysphagia possible aspiration, bronchitis possible pneumonitis after acute CVA. Coding Level of Care Code Acute Code for [facility] Diagnoses Stroke determined by clinical assessment I63.9 Hypoxia R09.02 Fall W19.XXXA Smoking addiction F17.200
[2023-06-16] VITALS (8 sets, daily range): BP systolic 122–148; BP diastolic 74–89; PULSE 86–105; RESP 16–20; TEMP 36.4–37.7; O2SAT 91–97
[2023-06-16 05:11] LABS: Basophils % 0.5 %; Eosinophils # 0.2 10^3/uL (0.0-0.8); Eosinophils % 3.4 %; Hematocrit 39.9 % (36-47); Lymphocytes # 1.7 10^3/uL (0.8-4.8); Lymphocytes % 29.9 %; Mean Corpuscular HGB Conc 33.6 g/dL (30-55); Mean Corpuscular Hemoglobin 31.2 pg (27-33); Mean Platelet Volume 9.2 fL (7.4-10.4); Monocytes # 0.6 10^3/uL (0.2-0.9); Monocytes % 11.1 %; Neutrophils # 3.01 10^3/uL (1.8-7.7); Neutrophils % 54.7 %; Nucleated Red Blood Cells % 0 %; Platelet Count 173 10^3/cmm (157-399); Red Blood Count 4.29 10^6/uL (3.85-5.65); Red Cell Distribution Width 12.5 % (12.1-15.1); White Blood Count 5.51 10^3/uL (3.29-11.43)
[2023-06-16] MEDS: heparin 5,000 unit/mL INJ 1 mL 5000 UNIT SUBCUT (05:13)
[2023-06-16 06:45] LABS: Glucose Point of Care 149 mg/dL (70-110)
[2023-06-16] MEDS: budesonide 0.5 mg/2 mL Neb INHALATION (08:15)
[2023-06-16] MEDS: ipratropium-albuterol 3 mL Neb INHALATION ×2 (08:15→12:08)
[2023-06-16] MEDS: duloxetine 60 mg Capsule PO ×2 (10:37)
[2023-06-16] MEDS: atorvastatin 40 mg Tablet PO (10:37)
[2023-06-16] MEDS: gabapentin 400 mg Capsule 800 MG PO (10:37)
[2023-06-16] MEDS: pantoprazole DR 40 mg Tablet PO (10:37)
[2023-06-16] MEDS: ropinirole 0.25 mg Tablet PO (10:38)
[2023-06-16] MEDS: clopidogrel 75 mg Tablet PO (10:38)
[2023-06-16 10:51] LABS: Glucose Point of Care 135 mg/dL (70-110)
--- NOTE | 2023-06-16 13:56 | PM.DCS ---
Discharge Providers Date of Admission: 06/15/23 21:05 Date of Discharge: June 16, 2023 Attending Provider at Admission: Robles Guido Attending Provider at Discharge: Robles Guido Primary Care Provider: Jessica Hardin Diagnoses at Discharge Discharge Diagnosis (1) Stroke determined by clinical assessment: Status: Acute (2) Hypoxia: Status: Acute (3) Fall: Status: Acute (4) Smoking addiction: Status: Acute Reason for Visit Reason for Visit: Stroke Alert Hospital Course Hospital Course Pleasant 72-year-old lady with history of TIAs on Plavix, carotid stenosis 50-70% on the right, less than 50% on the left, HLD, DM2, MAME, smoking was hospitalized after presenting with persistent focal neurologic abnormalities starting the evening before hospitalization day including dizziness, difficulty with ambulation, right-sided weakness, weakness in right lower extremity superimposed on prior chronic hip issues, slurred speech, facial droop, she was assessed for stroke on admission by ER team as well as neurology, was not found to be a candidate for intervention, as per neurology recommendation continued on Plavix, statin, she was kept in the hospital to help identify actionable secondary causes, carotid duplex was reassessed and showed perhaps slightly less stenosis possibly due to technical differences and studies with 50 to 60% carotid stenosis on the right side. MRI of the brain was obtained with confirmation of CVA and left thalamus with small CVA about 9 mm focus with mild associated edema. She was assessed by echocardiogram bubble study which did not show any shunt. Did show normal EF, grade 1 diastolic dysfunction. A1c was assessed and was 7 with good diabetes control. Blood pressures did show elevation with permissive hypertension, at discharge she is resumed on her home dose propranolol. Please reassess blood pressures, continue to optimize control of hypertension. Most importantly we also discussed with her smoking cessation and she is confident that she will not be smoking any longer. While in the hospital we provided her with nicotine patch, lozenges to help with cravings and she is given prescription for these at discharge as well. Additionally she is instructed to discontinue meloxicam with associated cardiovascular/stroke risk with NSAIDs. During hospitalization she was additionally assessed due to soft oxygen saturation initially, some reported productive cough, chest x-ray was obtained which showed some scarring versus platelike atelectasis of left lower lung. She was assessed by speech therapy, provided with incentive spirometer, with reported productive cough possibly acute bronchitis, although with hyperinflation noted on chest x-ray possibility of emphysema and more chronic process with history of smoking she was started on breathing treatments, provided with flutter valve. Respiratory viral panel was obtained and was negative. She did well with speech therapy, although with productive cough, facial droop was additionally assessed with modified barium swallow to assess for any aspiration. Noted early spillage with residual in vallecula which cleared with additional liquids. Small amount of penetration noted with thin liquids, no jorge aspiration. To be on the safer side we discussed her thickening liquids to mildly thick, continuing aspiration precautions. She would benefit from follow-up with speech therapy if possible. Please reassess for recovery from possible acute bronchitis, in case of protracted respiratory symptoms please refer for additional assessment for possible development of chronic lung disease due to smoking, possibly emphysema/COPD/chronic bronchitis. She did show improvement in terms of her strength yesterday, was able to ambulate 45 with physical therapy of with a walker and distance without, with resolution of slurred speech, today with only with mild drift in right upper extremity, anticipate may show some additional improvement with gradually resolving sandra-infarct edema, or, did discuss with patient and family likely persistence of residual focal deficits given finding of CVA. Further discussed secondary prevention and she is referred for follow-up with neurology. She would benefit from further rehabilitation as she is at risk of fall due to component of acute weakness superimposed on chronic issues of right lower extremity, has been set up for restorative therapy by case management over at [facility], other options were considered, she nor family are unable to private pay for skilled therapy and at current time family are unable to accommodate her with them. As per discussion with family further decision can be made depending on her performance regarding whether she may be safe to return home at that time versus consideration of long-term placement. Please follow-up also on incidentally noted possible 1 cm nodule in right upper lobe. Physical Exam Narrative: Accompanied by her niece. Const: COMMON NORMALS: patient oriented x3 and alert GENERAL APPEARANCE: cooperative ORIENTATION/CONSCIOUSNESS: Yes awake HENMT: COMMON NORMALS: oropharynx normal Neck/C-Spine: COMMON NORMALS: no JVD Resp: COMMON NORMALS: normal respiratory effort and clear to auscultation bilaterally AUSCULTATION: clear to auscultation bilaterally Cardio: COMMON NORMALS: no JVD, regular rhythm, S1 normal heart sound present, S2 normal heart sound present and No murmurs present (Cardio) RHYTHM: regular rhythm HEART SOUNDS: S1 normal heart sound present and S2 normal heart sound present GI: COMMON NORMALS: Normal to inspection, nondistended, normoactive bowel sounds present, Soft to palpation and non-tender PALPATION: Yes Soft to palpation Extremity: COMMON NORMALS: no joint enlargement and no pedal edema Neuro: COMMON NORMALS: patient oriented x3 and moves all extremities SENSORIUM/ORIENTATION: Yes alert OTHER: Does not appear to have difficulty tracking, but does appear to have some disconjugate gaze. There is improved right-sided facial droop. Today without slurred speech. Does follow directions readily. Visual parham full to confrontation. No visual extinction. Improved strength/drift upper extremities. Skin: COMMON NORMALS: no rashes or lesions noted GENERAL SKIN EXAM: no rashes or lesions noted Discharge Data Studies Completed and Pending Completed Studies During Hospitalization Category Date Time Status CT head thrombolytic 26142 Stat Cat Scan 06/14/23 13:13 Completed CXRP [XR chest 1V portable [id number]] Routine Exams 06/15/23 08:34 Completed FL barium swallow modifd [id number] Routine Exams 06/16/23 14:00 Completed XR cervical spine 3V* [id number] Stat Exams 06/14/23 13:25 Completed MR head wo con* [id number] Routine MRI 06/15/23 16:39 Completed CV carotid duplex BI* [id number] Routine Ultrasound 06/14/23 17:02 Completed CV. echo w/w bubble cont [id number] Routine Ultrasound 06/14/23 16:39 Completed Pending at discharge Category Date Time Status SARS Covid-2 Antigen Routine Lab 06/16/23 13:49 Uncollected Sputum Culture and Gram Stain Routine Lab 06/15/23 14:24 Uncollected Radiology Impressions Cervical Spine X-Ray 06/14/23 13:25 IMPRESSION: Cervical spondylosis. No acute findings. Chest X-Ray 06/15/23 08:34 IMPRESSION: 1. Scarring versus platelike atelectasis left lower lung. 2. Possible 1 cm nodule right upper lobe. Consider a chest CT for this. Laboratory Results WBC 5.51 10^3/uL (3.29-11.43) 06/16/23 04:56 RBC 4.29 10^6/uL (3.85-5.65) 06/16/23 04:56 Hgb 13.40 g/dL (11.27-16.99) 06/16/23 04:56 Hct 39.9 % (36-47) 06/16/23 04:56 MCV 93.0 fl (85-98) 06/16/23 04:56 MCH 31.2 pg (27-33) 06/16/23 04:56 MCHC 33.6 g/dL (30-55) 06/16/23 04:56 RDW 12.5 % (12.1-15.1) 06/16/23 04:56 Plt Count 173 10^3/cmm (157-399) 06/16/23 04:56 MPV 9.2 fL (7.4-10.4) 06/16/23 04:56 Neut % (Auto) 54.7 % 06/16/23 04:56 Lymph % (Auto) 29.9 % 06/16/23 04:56 [place] % (Auto) 11.1 % 06/16/23 04:56 Eos % (Auto) 3.4 % 06/16/23 04:56 Baso % (Auto) 0.5 % 06/16/23 04:56 Neut # (Auto) 3.01 10^3/uL (1.8-7.7) 06/16/23 04:56 Lymph # (Auto) 1.7 10^3/uL (0.8-4.8) 06/16/23 04:56 [place] # (Auto) 0.6 10^3/uL (0.2-0.9) 06/16/23 04:56 Eos # (Auto) 0.2 10^3/uL (0.0-0.8) 06/16/23 04:56 Baso # (Auto) 0.0 10^3/uL (0.0-0.1) 06/16/23 04:56 Nucleated RBC % (auto) 0 % 06/16/23 04:56 Nucleated RBCs # 0.0 /100WBC 06/16/23 04:56 PT 12.60 SECONDS (12.1-14.9) 06/14/23 13:35 INR 0.92 (0.8-1.2) 06/14/23 13:35 APTT 33.1 SECONDS (23.9-36.7) 06/14/23 13:35 Sodium 137 mmol/L (136-145) 06/14/23 13:35 Potassium 4.8 mmol/L (3.5-5.1) 06/14/23 13:35 Chloride 103 mmol/L (98-107) 06/14/23 13:35 Carbon Dioxide 24 mmol/L (22-29) 06/14/23 13:35 Anion Gap 14.8 (5-19) 06/14/23 13:35 BUN 9 mg/dL (8-23) 06/14/23 13:35 Creatinine 0.7 mg/dL (0.5-0.9) 06/14/23 13:35 GFR Calculation 82.7 mL/min (90-130) L 06/14/23 13:35 Glucose 155 mg/dL (65-115) H 06/14/23 13:35 POC Glucose 135 mg/dL (70-110) H 06/16/23 10:48 Estimat Average Glucose 154 06/15/23 04:40 Hemoglobin A1c 7.0 % (4.0-6.0) H 06/15/23 04:40 Calculated Osmolality 286 mOsm/kg (285-295) 06/14/23 13:35 Calcium 9.4 mg/dL (8.5-10.5) 06/14/23 13:35 Total Bilirubin 0.5 mg/dL (0.15-1.2) 06/14/23 13:35 AST 13 U/L (0-32) 06/14/23 13:35 ALT 20 U/L (0-33) 06/14/23 13:35 Alkaline Phosphatase 124 U/L (35-105) H 06/14/23 13:35 Total Protein 6.8 g/dL (6.6-8.7) 06/14/23 13:35 Albumin 4.0 g/dL (3.5-5.2) 06/14/23 13:35 Globulin 2.8 g/dL (1.3-4.6) 06/14/23 13:35 Triglycerides 214 mg/dL (0-150) H 06/15/23 04:40 Cholesterol 138 mg/dL (0-200) 06/15/23 04:40 LDL Cholesterol, Calc 61 mg/dL (50-129) 06/15/23 04:40 HDL Cholesterol 34 mg/dL (60-100) L 06/15/23 04:40 LDL/HDL Ratio 1.79 RATIO (0.00-3.22) 06/15/23 04:40 Cholesterol/HDL Ratio 4.06 mg/dL (0.0-4.40) 06/15/23 04:40 Urine Color Yellow (Yellow) 06/14/23 18:30 Urine Appearance Clear (CLEAR) 06/14/23 18:30 Urine pH 6 (5-7) 06/14/23 18:30 Ur Specific [place] 1.015 (1.005-1.030) 06/14/23 18:30 Urine Protein Neg (Negative) 06/14/23 18:30 Urine Glucose (UA) Norm (Normal) 06/14/23 18:30 Urine Ketones Negative (Negative) 06/14/23 18:30 Urine Blood Neg (Negative) 06/14/23 18:30 Urine Nitrate Negative (Negative) 06/14/23 18:30 Urine Bilirubin Neg (Negative) 06/14/23 18:30 Urine Urobilinogen Norm mg/dL (Negative) 06/14/23 18:30 Ur Leukocyte Esterase Negative (Negative) 06/14/23 18:30 Urine Opiates Screen Negative ng/mL (Negative) 06/14/23 22:07 Ur Barbiturates Screen Negative ng/mL (Negative) 06/14/23 22:07 Ur Phencyclidine Scrn Negative ng/mL (Negative) 06/14/23 22:07 Ur Amphetamines Screen Negative ng/mL (Negative) 06/14/23 22:07 U Benzodiazepines Scrn Negative ng/mL (Negative) 06/14/23 22:07 Urine Cocaine Screen Negative ng/mL (Negative) 06/14/23 22:07 U Marijuana (THC) Screen Negative ng/mL (Negative) 06/14/23 22:07 Adenovirus (PCR) Not detected (NOT DETECT) 06/15/23 14:17 C. pneumoniae DNA (PCR) Not detected (NOT DETECT) 06/15/23 14:17 Coronavirus 229E (PCR) Not detected (NOT DETECT) 06/15/23 14:17 Human Metapneumovir PCR Not detected (NOT DETECT) 06/15/23 14:17 Influenza A (H1) PCR Not detected (NOT DETECT) 06/15/23 14:17 Influ A (H1/09) PCR Not detected (NOT DETECT) 06/15/23 14:17 Influenza A (H3) PCR Not detected (NOT DETECT) 06/15/23 14:17 Influenza Type A (PCR) Not detected (NOT DETECT) 06/15/23 14:17 Influenza Type B (PCR) Not detected (NOT DETECT) 06/15/23 14:17 M. pneumoniae (PCR) Not detected (NOT DETECT) 06/15/23 14:17 Parainfluenza 1 (PCR) Not detected (NOT DETECT) 06/15/23 14:17 Parainfluenza 2 (PCR) Not detected (NOT DETECT) 06/15/23 14:17 Parainfluenza 3 (PCR) Not detected (NOT DETECT) 06/15/23 14:17 Parainfluenza 4 (PCR) Not detected (NOT DETECT) 06/15/23 14:17 RSV Type A (PCR) Not detected (NOT DETECT) 06/15/23 14:17 RSV Type B (PCR) Not detected (NOT DETECT) 06/15/23 14:17 Entero/Rhino (PCR) Not detected (NOT DETECT) 06/15/23 14:17 SARS-CoV-2 (PCR) Not detected (NOT DETECT) 06/15/23 14:17 Vitals Last Vital Signs Temp 97.5 F L 06/16/23 11:32 Pulse 100 06/16/23 12:00 Resp 20 H 06/16/23 12:00 BP 146/89 06/16/23 11:32 Pulse Ox 94 06/16/23 12:00 O2 Del Method Room Air 06/16/23 12:00 Discharge Plan Discharge Patient Disposition: Xfer LTC Condition: Stable Prescriptions: New nicotine 21 mg/24 hr Patch 24 Hour 1 patch transdermal Q24H Qty: 90 0RF nicotine (polacrilex) 4 mg Lozenge 4 mg mucous membrane Q2H PRN (Reason: Nicotine Cravings) Qty: 90 1RF albuterol sulfate 90 mcg/actuation HFA aerosol inhaler 4 inh inhalation Q8H PRN (Reason: shortness of breath or wheezing) Qty: 8.5 0RF Continued tramadol 50 mg tablet 50 mg PO Q8H PRN (Reason: pain) ferrous sulfate 27 mg iron tablet 27 mg PO DAILY Ozempic 0.25 mg or 0.5 mg(2 mg/1.5 mL) pen injector 0.25 mg SUBCUT Q7D Rx Instructions: ON TUESDAY metformin 500 mg tablet 500 mg PO BID pantoprazole [Protonix] 40 mg tablet,delayed release (DR/EC) 40 mg PO DAILY atorvastatin 40 mg tablet 40 mg PO DAILY duloxetine 60 mg capsule, delayed rel sprinkle 60 mg PO DAILY ropinirole 0.25 mg tablet 0.25 mg PO DAILY propranolol 120 mg capsule,extended release 24 hr 120 mg PO DAILY (DME) diabetic shoes with 3 inserts See Rx Instructions .Route .MEDSUPPLY Qty: 1 0RF Rx Instructions: As directed to the shomeng hassan clopidogrel [Plavix] 75 mg tablet 75 mg PO DAILY Qty: 1 0RF Hold Instructions: Resume on 09/02/21. nitroglycerin 0.4 mg tablet, sublingual 0.4 mg sublingual Q5M PRN (Reason: chest pain) Qty: 25 2RF Rx Instructions: do not exceed 3 doses per episode gabapentin 800 mg tablet 800 mg PO TID clonazepam 0.5 mg tablet 0.5 mg PO DAILY PRN (Reason: Anxiety) ketoconazole 2 % cream 1 applic TOPICAL BID solifenacin 10 mg tablet 10 mg PO QAM Discontinued meloxicam 15 mg tablet 15 mg PO DAILY Discharge Orders: Discharge Order (Routine); Ordered 06/16/23 Ordered By: Robles Guido Referrals: Leonides Kennedy MD [Physician] - 1 week (We have notified your physician's clinic of the need for a follow-up appointment to be scheduled. If you have not heard from them within the next 2 business days, please call them directly. ) Discharge Diet: As Directed, Cardiac and Diabetic Patient Instructions: How to Stop Smoking (GEN), Heart Healthy Diet (GEN), Cigarette Smoking and Your Health (GEN), Ischemic Stroke (GEN), Hypertension (GEN), Fall Prevention (GEN), Dysphagia (GEN), Aspiration Precautions (GEN), Prevent Cardiovascular Disease (GEN) Activity Restrictions/Additional Instructions: Follow-up with your primary doctor and with neurology for reassessment after your stroke, small stroke was found in the left thalamus, 9 mm in size. Continue Plavix and cholesterol medication. Continue to work with your primary provider and neurologist to reduce risk factors for recurrence of stroke for which you are at risk. Please stop smoking as discussed, further smoking increase your risk of stroke, heart attack, but also lung disease, cancer and other complications. Please also stop meloxicam for concern of associated risk of stroke or other cardiovascular events. Continue to monitor and optimize control of high blood pressure as well as diabetes. Monitor blood pressures at least twice daily, write down values to bring to the next appointment to help adjust medications. Maintain heart healthy carbohydrate consistent diet. Continue restorative therapy at least 3-4 times a week. Mobilize as tolerating with a walker as per physical therapy teaching in the hospital. Maintain fall prevention due to new and chronic right leg weakness, mild right arm weakness. Continue aspiration precautions, mildly thickened liquids due to small amount of penetration with thin liquids on barium swallow. Noted early spillage with residual in the vallecula which cleared with additional liquids. Would benefit from continuing speech therapy if this can be arranged. Due to some cough mildly productive of sputum, hyperinflation on chest x-ray, concern for possibly some mild acute bronchitis versus progression to emphysema/COPD, please follow-up with primary doctor for reassessment of resolution of cough/bronchitis or if not resolving referral for pulmonary function testing. You are given a prescription for as needed inhaler in the meantime. Additionally continue incentive spirometer due to noted scarring versus atelectasis in left lower lung. At 1 cm nodule was incidentally seen on chest x-ray in the right upper lobe, please discuss with your primary doctor referral for additional assessment by CT of the chest which will also help assess for resolution of the atelectasis. Continue follow-up regarding obstructive sleep apnea, restless leg syndrome and other chronic conditions. Seek medical attention in case of any worsening or new concerning symptoms. Call 911 immediately in case of any worsening of facial droop, arm weakness, inability to speak, vision change, dizziness/loss of balance or any other symptoms that may suggest a stroke. Discharge Attestations Time Spent in Discharge Care*: greater than 30 min Quality Metrics Clinical Quality Measures [ No reported AMI, CVA or VTE this stay] Coding Level of Care Code 10505 Total time (in minutes) for Discharge: 50 Diagnoses Stroke determined by clinical assessment I63.9 Hypoxia R09.02 Fall W19.XXXA Smoking addiction F17.200
--- NOTE | 2023-06-16 14:00 | FL_ITS ---
WS: [id number] MODIFIED BARIUM SWALLOW TECHNIQUE: Modified barium swallow with speech therapy using multiple consistencies. FLUOROSCOPY TIME: 3min [id number] CLINICAL INFORMATION: Oropharyngeal dysphagia COMPARISON: None. FINDINGS: Multiple consistencies utilized. Normal oropharyngeal phase. Early spillage with residual in the vallecula. This cleared with addition al liquids. Small amount of penetration visualized with thin liquids. No jorge aspiration. No difficu lties of the barium tablet. IMPRESSION: 1. Early spillage with residual in the vallecula which cleared with additional liquids. 2. Small amount of penetration with thin liquids. No jorge aspiration. 3. No difficulties with the barium tablet. Please see Speech Pathology consultation for additional detail and recommendations.
[2023-06-16 14:30] LABS: SARS Covid-2 Antigen negative (Negative)
== END 2023-06-16 14:41 | DRG 65 ==
LOC: ER 14:26 → MEDSURG 15:59
PROVIDERS: Admitting Provider Internal Medicine; Emergency Provider Family Medicine; PCP Nurse Practitioner Family; Visit Provider Internal Medicine
DX: I63.9 Cerebral infarction, unspecified (principal); G81.91 Hemiplegia, unspecified affecting right dominant side; R27.0 Ataxia, unspecified; R47.1 Dysarthria and anarthria; R29.810 Facial weakness; F17.210 Nicotine dependence, cigarettes, uncomplicated; R29.704 NIHSS score 4; W19.XXXA Unspecified fall, initial encounter; Z86.73 Personal history of transient ischemic attack (TIA), and cerebral infarction without residual deficits; Z79.02 Long term (current) use of antithrombotics/antiplatelets; R09.02 Hypoxemia; G89.29 Other chronic pain; M54.9 Dorsalgia, unspecified; M54.2 Cervicalgia; M48.061 Spinal stenosis, lumbar region without neurogenic claudication; R91.1 Solitary pulmonary nodule; I65.23 Occlusion and stenosis of bilateral carotid arteries; E78.5 Hyperlipidemia, unspecified; E11.9 Type 2 diabetes mellitus without complications; Z79.84 Long term (current) use of oral hypoglycemic drugs; G47.33 Obstructive sleep apnea (adult) (pediatric); S09.90XA Unspecified injury of head, initial encounter; Z79.891 Long term (current) use of opiate analgesic; G25.81 Restless legs syndrome
CPT/HCPCS: 36415; 36416; 70450; 70551; 71045; 72040; 74230; 80053; 80061; 80306; 81003; 82962; 83036; 85025; 85610; 85730; 87426; 87486; 87581; 87633; 92523; 92610; 92611; 93005; 93880; 94640; 96360; 96361; 96372; 97110; 97116; 97161; 97165; 97535; 99285; C8929; G0378; J1644; J1815; J7030; J7626

== ENCOUNTER 2023-06-21 10:20 | Observation (INO) | payer MEDICARE, MEDICAID, SELFPAY ==
[2023-06-21] VITALS (8 sets, daily range): BP systolic 115–152; BP diastolic 69–108; PULSE 67–90; RESP 16–26; TEMP 36.7; O2SAT 91–99; BMI 28.1
--- NOTE | 2023-06-21 10:29 | ECG_ITS ---
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 Measurements Intervals [place] Rate: 73 P: 65 [place]: 198 QRS: -17 QRSD: 87 T: 43 QT: 373 QTc: 413 Interpretive Statements SINUS RHYTHM Compared to ECG 06/14/2023 12:27:58 No significant changes Electronically Signed On 06-21-2023 21:31:16 CDT by Natanael Irby M.D. [id number]
--- NOTE | 2023-06-21 10:42 | XR_ITS ---
WS: [id number] Portable AP upright chest, 06/21/2023 Clinical Data: chest pain Comparison: Portable chest, 06/15/2023 Findings: No nodules, masses or effusions are seen. The heart is normal. The pulmonary vascularity is not increased. No pneumonia or pneumothorax is seen. There is minimal atelectasis in the left lower lobe. The aortic arch shows mild calcification. Monitor leads are on the chest wall. Impression: Atherosclerosis.
--- NOTE | 2023-06-21 11:03 | PC.PHAR ---
PT TEMPORARILY IN [place] HALFWAY FOR 2 WEEKS FOR REHAB. 06/21/23
--- NOTE | 2023-06-21 11:12 | ED_ITS ---
HPI - Chest Pain 2 General: Chief Complaint: Chest Pain Stated Complaint: Chest Pain Time Seen by Provider: 06/21/23 10:21 Source: patient Mode of arrival: EMS History of Present Illness: 72-year-old female who presents to the e mergency room with complaint of episode of chest pain. She is currently at a intermediate she was seen last week for stroke hospitalized and discharged to intermediate she used a walker to go to a hair salon within the intermediate after she arrived there she started getting chest discomfort she was given 3 sublingual nitros with relief of the pain after the third 1. She has no symptoms now. Symptoms began this morning at 830 resolved within an hour after receiving the 3 nitro. She has not previously had history of coronary artery disease. No fever sweats chills or cough. No radiation of the pain. She did do some shortness of breath when she was having the pain. She still has some word finding difficulty and weakness residual from her stroke but no new strokelike symptoms. 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 Pain management contract signed Hyperlipidemia Tremor of both hands RLS (restless legs syndrome) Surgical History History of colonoscopy Hx of hysterectomy Hx of knee surgery Hx of cholecystectomy Family History Other Brain tumor COPD (chronic obstructive pulmonary disease) Congestive heart failure (CHF) Dementia Diabetes Denies family history of Anesthesia complication Social History Smoking and tobacco/nicotine status: current every day tobacco/nicotine user cigarettes Packs smoked per day: 10 Alcohol intake: never Substance/Drug Use: never Physical Exam 2 Const: COMMON NORMALS: no acute distress GENERAL APPEARANCE: cooperative and comfortable ORIENTATION/CONSCIOUSNESS: Yes awake, Yes oriented to person, Yes oriented to place and Yes oriented to time HENMT: COMMON NORMALS: normocephalic, atraumatic and hearing grossly normal bilaterally HEAD & SCALP: normocephalic and atraumatic Resp: COMMON NORMALS: normal respiratory effort, No retractions, No use of accessory muscles and clear to auscultation bilaterally AUSCULTATION: clear to auscultation bilaterally Cardio: COMMON NORMALS: regular rate, regular rhythm and No murmurs present (Cardio) RATE: regular rate RHYTHM: regular rhythm GI: COMMON NORMALS: Soft to palpation and No hepatosplenomegaly present A USCULTATION: Yes normoactive bowel sounds PALPATION: Yes Soft to palpation, No Tenderness to palpation present (GI), No Guarding due to palpation present (GI) and Yes No hepatosplenomegaly present Extremity: COMMON NORMALS: normal to inspection, capillary refill normal, no clubbing, cyanosis or edema, no calf tenderness and no pedal edema Neuro: SENSORIUM/ORIENTATION: Yes oriented to person, Yes oriented to place and Yes oriented to time Skin: COMMON NORMALS: no rashes or lesions noted GENERAL SKIN EXAM: no rashes or lesions noted Course 2 Vital Signs: Vital signs: Vital Signs Temperature 98.0 F 06/22/23 01:19 Pulse Rate 109 H 06/22/23 13:14 Respiratory Rate 18 06/22/23 13:14 Blood Pressure 111/86 06/22/23 13:12 Pulse Oximetry 92 06/22/23 13:14 Oxygen Delivery Me thod Room Air 06/22/23 13:14 MDM - Chest Pain Medical Decision Making Chest discomfort with normal cardiac enzymes and EKG without significant changes. No acute ST segment changes. Patient reports having to take nitro with chest discomfort at rest has been happening more frequently was more intense today and was again relieved by nitro. Reviewing her chart patient had an abnormal stress test in 2020 it was a small defect and was said to treat medically she has never had any further evaluation of this. Given her escalating symptoms will admit for cardiology consult discussed Dr. Irby he concurs to admit to Dr. Rosado. Medical Records I reviewed the patient's medical records. Lab Data I reviewed the patient's lab results. 06/22/23 04:14 06/22/23 04:14 Laboratory Results WBC 8.10 10^3/uL (3.29-11.43) 06/21/23 09:30 RBC 4.60 10^6/uL (3.85-5.65) 06/21/23 09:30 Hgb 14.20 g/dL (11.27-16.99) 06/21/23 09:30 Hct 42.9 % (36-47) 06/21/23 09:30 MCV 93.3 fl (85-98) 06/21/23 09:30 MCH 30.9 pg (27-33) 06/21/23 09:30 MCHC 33.1 g/dL (30-55) 06/21/23 09:30 RDW 12.6 % (12.1-15.1) 06/21/23 09:30 Plt Count 222 10^3/cmm (157-399) 06/21/23 09:30 MPV 10.1 fL (7.4-10.4) 06/21/23 09:30 Neut % (Auto) 65.7 % 06/21/23 09:30 Lymph % (Auto) 17.8 % 06/21/23 09:30 [place]ward % (Auto) 12.3 % 06/21/23 09:30 Eos % (Auto) 3.3 % 06/21/23 09:30 Baso % (Auto) 0.5 % 06/21/23 09:30 Neut # (Auto) 5.32 10^3/uL (1.8-7.7) 06/21/23 09:30 Lymph # (Auto) 1.4 10^3/uL (0.8-4.8) 06/21/23 09:30 [place] # (Auto) 1.0 10^3/uL (0.2-0.9) H 06/21/23 09:30 Eos # (Auto) 0.3 10^3/uL (0.0-0.8) 06/21/23 09:30 Baso # (Auto) 0.0 10^3/uL (0.0-0.1) 06/21/23 09:30 Nucleated RBC % (auto) 0 % 06/21/23 09:30 Nucleated RBCs # 0.0 /100WBC 06/21/23 09:30 Sodium 136 mmol/L (136-145) 06/21/23 09:30 Potassium 4.6 mmol/L (3.5-5.1) 06/21/23 09:30 Chloride 99 mmol/L (98-107) 06/21/23 09:30 Carbon Dioxide 26 mmol/L (22-29) 06/21/23 09:30 Anion Gap 15.6 (5-19) 06/21/23 09:30 BUN 11 mg/dL (8-23) 06/21/23 09:30 Creatinine 0.6 mg/dL (0.5-0.9) 06/21/23 09:30 GFR Calculation 98.8 mL/min (90-130) 06/21/23 09:30 Glucose 251 mg/dL (65-115) H 06/21/23 09:30 Calculated Osmolality 290 mOsm/kg (285-295) 06/21/23 09:30 Calcium 9.3 mg/dL (8.5-10.5) 06/21/23 09:30 Total Bilirubin 0.6 mg/dL (0.15-1.2) 06/21/23 09:30 AST 12 U/L (0-32) 06/21/23 09:30 ALT 23 U/L (0-33) 06/21/23 09:30 Alkaline Phosphatase 122 U/L (35-105) H 06/21/23 09:30 Troponin T Baseline 18 ng/L (0-10) H 06/21/23 09:30 Troponin T 120 Minute 16.47 ng/L (0-10) H 06/21/23 11:30 Delta Troponin T -1.53 ABS# (0-10) L 06/21/23 11:30 Troponin T Hi Sens 6Hr 17.61 ng/L (0-10) H 06/21/23 15:47 Troponin T Hi Sens 6Hr Delta -0.39 ng/L (0-12) L 06/21/23 15:47 Total Protein 6.3 g/dL (6.6-8.7) L 06/21/23 09:30 Albumin 3.9 g/dL (3.5-5.2) 06/21/23 09:30 Globulin 2.4 g/dL (1.3-4.6) 06/21/23 09:30 All radiology interpretation(s) finalized by discharge Discharge Plan Discharge Patient Disposition: Placed in Observation Admit Provider: July Rosado Clinical Impression: Unstable angina pectoris, Bilateral carotid artery stenosis, Cerebrovascular accident Coding Level of Care Code ED Tree Trimming Line Technician for Arnulfo Christensen
[2023-06-21 11:23] LABS: Troponin(5th) Baseline 18 ng/L (0-10)
[2023-06-21 11:26] LABS: Alanine Aminotransferase 23 U/L (0-33); Albumin Level 3.9 g/dL (3.5-5.2); Alkaline Phosphatase 122 U/L (35-105); Anion Gap 15.6 (5-19); Aspartate Amino Transferase 12 U/L (0-32); Blood Urea Nitrogen 11 mg/dL (8-23); Calcium 9.3 mg/dL (8.5-10.5); Carbon Dioxide 26 mmol/L (22-29); Chloride 99 mmol/L (98-107); Creatinine Clr Calc Pharmacy 79.1904; Globulin 2.4 g/dL (1.3-4.6); Glomerular Filtration Rate 98.8 mL/min (90-130); Glucose 251 mg/dL (65-115); Osmolality Calculated 290 mOsm/kg (285-295); Potassium 4.6 mmol/L (3.5-5.1); Sodium 136 mmol/L (136-145); Total Bilirubin 0.6 mg/dL (0.15-1.2); Total Protein 6.3 g/dL (6.6-8.7)
[2023-06-21 12:02] LABS: Troponin 5 2HR 16.47 ng/L (0-10)
[2023-06-21 12:03] LABS: Troponin 5 2HR Delta -1.53 ABS# (0-10)
--- NOTE | 2023-06-21 12:42 | ECG_ITS ---
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 Measurements Intervals [place] Rate: 68 P: 63 [place]: 195 QRS: 15 QRSD: 83 T: 5 QT: 386 QTc: 413 Interpretive Statements SINUS RHYTHM Compared to ECG 06/21/2023 10:29:50 No significant changes Electronically Signed On 06-21-2023 21:38:37 CDT by Natanael Irby M.D. [email or web address] [facility] [facility].[employer]/store/OM/[id number]
[2023-06-21 13:16] LABS: Basophils % 0.5 %; Eosinophils # 0.3 10^3/uL (0.0-0.8); Eosinophils % 3.3 %; Hematocrit 42.9 % (36-47); Lymphocytes # 1.4 10^3/uL (0.8-4.8); Lymphocytes % 17.8 %; Mean Corpuscular HGB Conc 33.1 g/dL (30-55); Mean Corpuscular Hemoglobin 30.9 pg (27-33); Mean Corpuscular Volume 93.3 fl (85-98); Mean Platelet Volume 10.1 fL (7.4-10.4); Monocytes % 12.3 %; Neutrophils # 5.32 10^3/uL (1.8-7.7); Neutrophils % 65.7 %; Nucleated Red Blood Cells % 0 %; Platelet Count 222 10^3/cmm (157-399); Red Cell Distribution Width 12.6 % (12.1-15.1)
[2023-06-21] MEDS: nitroglycerin 1 gm/inch oint Pkt 0.5 INCH TOPICAL (15:57)
--- NOTE | 2023-06-21 16:25 | P.CONIM_ITS ---
Providers/Reason For Consult 2 Consulting Physician/Specialty*: Natanael Irby MD/ Cardiology Reason for Consult*: Worsening angina Requesting Physician: Dr Lamb Attending Physician: July Rosado MD Primary Care Provider: Jessica Hardin History of Present Illness History of Present Illness Lissa Anne is a 72 year old female With past medical history of recent CVA, smoking, abnormal stress test in 2020 however defect was small and was medically treated. She has presented to hospital with severe substernal chest pain radiating to the jaw. Had to take multiple nitros. Troponins have not trended up significantly. EKG has no significant ST T wave changes. In recent past had to take nitros as well. Review of Systems 2 Narrative: CONSTITUTIONAL: No fever chills weight loss or gain or night sweats. [] HEENT: Normocephalic, atraumatic.[] RESPIRATORY: No cough, sputum, hemoptysis or wheezing.[] CARDIOVASCULAR: Chest pain GI: no nausea vomiting diarrhea. [] MUSCULOSKELETAL: No knee or joint pain or rashes. [] Medications/Allergies Home Medications Medication Instructions Recorded Confirmed Last Taken Type atorvastatin 40 mg tablet 40 mg PO DAILY 11/21/19 06/21/23 06/20/23 History duloxetine 60 mg capsule,delayed 60 mg PO DAILY 11/21/19 06/21/23 06/20/23 History release sprinkle metformin 500 mg tablet 500 mg PO BID 11/21/19 06/21/23 06/20/23 History pantoprazole 40 mg tablet,delayed 40 mg PO DAILY 11/21/19 06/21/23 06/20/23 History release (Protonix) propranolol 120 mg capsule,24 120 mg PO DAILY 11/21/19 06/21/23 06/20/23 History hr,extended release ropinirole 0.25 mg tablet 0.25 mg PO DAILY 11/21/19 06/21/23 06/20/23 History clopidogrel 75 mg tablet (Plavix) 75 mg PO DAILY #1 tab 01/20/21 06/21/23 06/20/23 Rx ferrous sulfate 27 mg iron tablet 27 mg PO DAILY 08/13/21 06/21/23 06/20/23 History semaglutide 0.25 mg or 0.5 mg (2 0.25 mg SUBCUT Q7D 08/13/21 06/21/23 06/09/23 History mg/1.5 mL) subcutaneous pen injector (Ozempic) tramadol 50 mg tablet 50 mg PO Q8H PRN pain 08/13/21 06/21/23 08/26/21 History nitroglycerin 0.4 mg sublingual 0.4 mg sublingual Q5M PRN chest 11/27/21 06/21/23 Unknown Rx tablet pain #25 tabs diabetic shoes with 3 inserts #1 ea 06/06/23 06/21/23 Unknown Rx clonazepam 0.5 mg tablet 0.5 mg PO DAILY PRN Anxiety 06/14/23 06/21/23 Unknown History gabapentin 800 mg tablet 800 mg PO TID 06/14/23 06/21/23 06/20/23 History albuterol sulfate 90 mcg/actuation 4 inh inhalation Q8H PRN shortness 06/16/23 06/21/23 Unknown Rx aerosol inhaler of breath or wheezing #8.5 grams nicotine 21 mg/24 hr daily 1 patch transdermal Q24H #90 ea 06/16/23 06/21/23 Unknown Rx transdermal patch oxybutynin chloride 5 mg tablet 5 mg PO DAILY 06/21/23 06/21/23 06/20/23 History Allergies Allergy/AdvReac Type Severity Reaction Status Date / Time morphine Allergy ALGY-Hives Verified 06/06/23 10:21 Penicillins Allergy ALGY-Hives Verified 06/06/23 10:21 PFSH Acute 2 PFSH: Medical History Smoking addiction Hx of stroke associated with dehydration Bilateral carotid artery stenosis MAME (obstructive sleep apnea) Diabetes mellitus longterm (current) use of opiate analgesic Pain management contract signed Hyperlipidemia Tremor of both hands RLS (restless legs syndrome) Surgical History History of colonoscopy Hx of hysterectomy Hx of knee surgery Hx of cholecystectomy Family History Other Brain tumor COPD (chronic obstructive pulmonary disease) Congestive heart failure (CHF) Dementia Diabetes Denies family history of Anesthesia complication Social History Smoking and tobacco/nicotine status: current every day tobacco/nicotine user cigarettes Packs smoked per day: 10 Alcohol intake: never Substance/Drug Use: never Vitals/I&O/Wt Last Vital Signs Temp 98.1 F 06/21/23 10:32 Pulse 74 06/21/23 14:00 Resp 20 H 06/21/23 14:00 BP 152/108 06/21/23 14:00 Pulse Ox 96 06/21/23 14:00 O2 Del Method Room Air 06/21/23 14:00 Weight last 48 hrs Weight 196 lb Physical Exam 2 Narrative: GENERAL: Patient is alert, awake and oriented x3. [] NECK: No jugular vein distension. [] HEENT: No cyanosis. No icterus. No pallor. [] HEART: Regular S1 and S2. No murmur, rub or gallop. [] LUNGS: Clear to auscultate bilaterally. [] EXTREMITIES: Lower extremities with no edema Data 06/22/23 04:14 06/22/23 04:14 A&P Assessment and plan (1) Hyperlipidemia: Qualifiers: Hyperlipidemia type: mixed hyperlipidemia Qualified Code(s): E78.2 - Mixed hyperlipidemia (2) Bilateral carotid artery stenosis: (3) Chest pain: Qualifiers: Chest pain type: unspecified Qualified Code(s): R07.9 - Chest pain, unspecified (4) Diabetes mellitus: Qualifiers: Diabetes mellitus type: type 2 Diabetes mellitus shower maid insulin use: without shower maid use Diabetes mellitus complication status: with other specified complication Qualified Code(s): E11.69 - Type 2 diabetes mellitus with other specified complication Plan Patient describes typical chest pain. Required multiple nitros before it improved. In the past also has been using nitros on and off. She had a stress test back in 2020 that was abnormal however showed small sized ischemia and she was treated medically. At this time atypical chest pain, multiple risk factors of CAD and history of abnormal stress test, we will proceed with coronary angiogram with possible percutaneous coronary intervention. Risks and benefits of the procedure have been discussed. NPO after midnight. Thank you for involving us with care of this patient. We will continue to follow. Please call with questions. Consult Attestations 2 Medical Necessity Statement: Care expected to cross 2 midnights. Coding Level of Care Code Acute Code for Chg Fwd Diagnoses Mixed hyperlipidemia E78.2 Hyperlipidemia type: mixed hyperlipidemia Bilateral carotid artery stenosis I65.23 Chest pain, unspecified type R07.9 Chest pain type: unspecified Type 2 diabetes mellitus with other specified complication, without long-term current use of insulin E11.69 Diabetes mellitus type: type 2 Diabetes mellitus shower maid insulin use: without residential use Diabetes mellitus complication status: with other specified complication
[2023-06-21 16:35] LABS: Troponin 5 6HR 17.61 ng/L (0-10)
[2023-06-21 16:37] LABS: Troponin 5 6HR Delta -0.39 ng/L (0-12)
--- NOTE | 2023-06-21 16:42 | ECG_ITS ---
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 Measurements Intervals [place] Rate: 79 P: 65 [place]: 198 QRS: -34 QRSD: 94 T: 56 QT: 378 QTc: 436 Interpretive Statements SINUS RHYTHM LEFT AXIS DEVIATION [QRS AXIS < -30] LOW QRS VOLTAGE IN PRECORDIAL LEADS [QRS DEFLECTION < 1.0 mV IN CHEST LEADS] Compared to ECG 06/21/2023 12:55:22 Left-axis deviation now present Low QRS voltage now present Electronically Signed On 06-21-2023 21:37:52 CDT by Natanael Irby M.D. [id number]
--- NOTE | 2023-06-21 17:43 | P.HP_ITS ---
Providers/Chief Complaint 2 Admitting Physician: July Rosado MD Primary Care Provider: Jessica Hardin Chief Complaint: Chest Pain History of Present Illness Lissa Anne is a 72 year old female with history of TIAs on Plavix, carotid stenosis 50-70% on the right, less than 50% on the left, HLD, DM2, MAME who presented to the hospital with chief complaints of chest discomfort. States that the pain is located in the middle of her chest, radiating into the arm, through the week she has taken sublingual nitroglycerin with partial relief in symptoms. She was previously had a stress test which was abnormal, however has not had a angiogram recently. Of note patient had a stroke recently following which she has had some persisting word finding difficulty and residual weakness, there are no new neurological findings today. Review of Systems 2 General: Reports: 10 or more systems reviewed and unremarkable except in HPI and below Const: Denies: fever(s), chills or body aches Eyes: Denies: change in vision, blurry vision or photophobia ENMT: Reports: hoarseness; Denies: throat pain, enlarged tonsils, odynophagia or nasal congestion Card: Denies: chest pain, palpitations, irregular heart rhythm, edema, swelling of feet/ankles, lightheadedness, pre-syncope, dyspnea on exertion or orthopnea Resp: Denies: dyspnea, productive cough, non-productive cough, wheezing, stridor, pain on inspiration, change in phlegm color, hemoptysis or chest congestion GI: Denies: abdominal pain, nausea, vomiting, hematemesis, coffee ground emesis, dysphagia, heartburn, diarrhea, constipation, GI cramping, change in stool character, hematochezia or melena : Denies: flank pain, difficulty voiding, dysuria, urinary frequency, urinary urgency, urinary hesitancy or hematuria Musc: Denies: neck pain, back pain, extremity pain, joint swelling, joint warmth or deformity Neuro: Denies: headache(s), numbness in extremities, weakness in extremities, sensory changes, difficulty walking, frequent falls, dizziness, vertigo, behavioral changes, Slurred speech present or seizure-like activity Psych: Denies: anxiety, depression, suicidal ideation or homicidal ideation Endo: Denies: polyuria, polydipsia, tired all the time, cold intolerance or hot flashes Jairo/Lymph: Denies: easy bruising or easy bleeding Medications/Allergies Home Medications Medication Instructions Recorded Confirmed Last Taken Type atorvastatin 40 mg tablet 40 mg PO DAILY 11/21/19 06/21/23 06/20/23 History duloxetine 60 mg capsule,delayed 60 mg PO DAILY 11/21/19 06/21/23 06/20/23 History release sprinkle metformin 500 mg tablet 500 mg PO BID 11/21/19 06/21/23 06/20/23 History pantoprazole 40 mg tablet,delayed 40 mg PO DAILY 11/21/19 06/21/23 06/20/23 History release (Protonix) propranolol 120 mg capsule,24 120 mg PO DAILY 11/21/19 06/21/23 06/20/23 History hr,extended release ropinirole 0.25 mg tablet 0.25 mg PO DAILY 11/21/19 06/21/23 06/20/23 History clopidogrel 75 mg tablet (Plavix) 75 mg PO DAILY #1 tab 01/20/21 06/21/23 06/20/23 Rx ferrous sulfate 27 mg iron tablet 27 mg PO DAILY 08/13/21 06/21/23 06/20/23 History semaglutide 0.25 mg or 0.5 mg (2 0.25 mg SUBCUT Q7D 08/13/21 06/21/23 06/09/23 History mg/1.5 mL) subcutaneous pen injector (Ozempic) tramadol 50 mg tablet 50 mg PO Q8H PRN pain 08/13/21 06/21/23 08/26/21 History nitroglycerin 0.4 mg sublingual 0.4 mg sublingual Q5M PRN chest 11/27/21 06/21/23 Unknown Rx tablet pain #25 tabs diabetic shoes with 3 inserts #1 ea 06/06/23 06/21/23 Unknown Rx clonazepam 0.5 mg tablet 0.5 mg PO DAILY PRN Anxiety 06/14/23 06/21/23 Unknown History gabapentin 800 mg tablet 800 mg PO TID 06/14/23 06/21/23 06/20/23 History albuterol sulfate 90 mcg/actuation 4 inh inhalation Q8H PRN shortness 06/16/23 06/21/23 Unknown Rx aerosol inhaler of breath or wheezing #8.5 grams nicotine 21 mg/24 hr daily 1 patch transdermal Q24H #90 ea 06/16/23 06/21/23 Unknown Rx transdermal patch oxybutynin chloride 5 mg tablet 5 mg PO DAILY 06/21/23 06/21/23 06/20/23 History isosorbide mononitrate 30 mg 30 mg PO DAILY #30 tabs 06/22/23 Unknown Rx tablet,extended release 24 hr Allergies Allergy/AdvReac Type Severity Reaction Status Date / Time morphine Allergy ALGY-Hives Verified 06/06/23 10:21 Penicillins Allergy ALGY-Hives Verified 06/06/23 10:21 PFSH Acute 2 PFSH: Medical History Smoking addiction Hx of stroke associated with dehydration Bilateral carotid artery stenosis 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 (obstructive 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 apnea) 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 Pain management contract signed Hyperlipidemia Tremor of both hands RLS (restless legs syndrome) Surgical History History of colonoscopy Hx of hysterectomy Hx of knee surgery Hx of cholecystectomy Family History Other Brain tumor COPD (chronic obstructive pulmonary disease) Congestive heart failure (CHF) Dementia Diabetes Denies family history of Anesthesia complication Social History Smoking and tobacco/nicotine status: current every day tobacco/nicotine user cigarettes Packs smoked per day: 10 Alcohol intake: never Substance/Drug Use: never Vitals/I&O/Wt Last Vital Signs Temp 98.1 F 06/21/23 10:32 Pulse 74 06/21/23 14:00 Resp 20 H 06/21/23 14:00 BP 152/108 06/21/23 14:00 Pulse Ox 96 06/21/23 14:00 O2 Del Method Room Air 06/21/23 16:33 Weight last 48 hrs Weight 88.904 kg Weight 88.904 kg Physical Exam 2 Narrative: General: No acute distress, AO x3 HEENT: PERRLA, pupils bilaterally equal and reactive, pallors not present Chest: Normal vesicular breath sounds, no added sounds, equal good air entry bilaterally CVS: S1-S2 regular, no murmurs, no tachycardia, no gallops, no rubs Abdomen: Soft, nontender, no organomegaly, bowel sounds present Neuro: No focal deficits, no facial deformity, AO x3, power 5/5 in all limbs Data 06/22/23 04:14 06/22/23 04:14 Other data: IMPRESSIONS 1. Very small sized reversible perfusion abnormality of mild severity in apical inferior and apical lateral hollis. This may reresent very small area of ischemia in left anterior artery territory. Attenuation artifact cannot be completely ruled out. 2. Overall left ventricular systolic function is normal without regional wall motion abnormalities. 3. The left ventricular ejection fraction is normal with a value of 77%. 4. EKG portion of the study will be reported separately. A&P Assessment and plan (1) Chest pain: Qualifiers: Chest pain type: unspecified Qualified Code(s): R07.9 - Chest pain, unspecified (2) Worsening angina: Plan 72-year-old lady with multiple risk factors for coronary artery disease currently presenting to the hospital with chest pain which is concerning for angina. Symptoms appear to be improving with nitroglycerin until recently. History of having an abnormal stress test back in 2020. Cardiology has been consulted for the emergency room. Likely that patient will require an angiogram to further assess the cause of her chest pain, evaluate for CAD. EKG today without acute ST-T wave changes. Baseline troponin at 18, 2 hours at 16, 6 hours at 17 without significant delta. Npo post midnight Continue statins, plavix, duloxetine Attestations 2 Medical Necessity Statement*: less than 2 midnight stay is anticipated Coding Level of Care Code Acute Code for Chg Fwd Moderate MDM includes number and complexity of problems actively addressed during encounter, amount and/or complexity of data reviewed/ordered and described risk of complication, morbidity or mortality of management as documented Diagnoses Chest pain, unspecified type R07.9 Chest pain type: unspecified Worsening angina I20.0
[2023-06-21] MEDS: nicotine 21 mg Patch 1 PATCH TRANSDERMA (18:06)
[2023-06-21] MEDS: metformin 500 mg Tablet PO (18:07)
[2023-06-21] MEDS: gabapentin 400 mg Capsule 800 MG PO (21:30)
[2023-06-22] VITALS (23 sets, daily range): BP systolic 111–145; BP diastolic 70–95; PULSE 78–114; RESP 12–29; TEMP 36.7; O2SAT 89–98; BMI 28.1
[2023-06-22] MEDS: guaiFENesin 100 mg/5 mL UDC 10 mL 200 MG PO ×2 (00:30→07:53)
[2023-06-22 05:32] LABS: Basophils % 0.5 %; Eosinophils # 0.3 10^3/uL (0.0-0.8); Eosinophils % 3.6 %; Hematocrit 43.2 % (36-47); Lymphocytes # 1.8 10^3/uL (0.8-4.8); Lymphocytes % 22.5 %; Mean Corpuscular HGB Conc 33.1 g/dL (30-55); Mean Corpuscular Hemoglobin 30.9 pg (27-33); Mean Corpuscular Volume 93.3 fl (85-98); Mean Platelet Volume 9.8 fL (7.4-10.4); Monocytes # 0.9 10^3/uL (0.2-0.9); Monocytes % 10.8 %; Neutrophils % 62.1 %; Nucleated Red Blood Cells % 0 %; Platelet Count 212 10^3/cmm (157-399); Red Blood Count 4.63 10^6/uL (3.85-5.65); Red Cell Distribution Width 12.4 % (12.1-15.1); White Blood Count 7.88 10^3/uL (3.29-11.43)
[2023-06-22 06:01] LABS: Alanine Aminotransferase 19 U/L (0-33); Albumin Level 3.8 g/dL (3.5-5.2); Alkaline Phosphatase 116 U/L (35-105); Aspartate Amino Transferase 9 U/L (0-32); Blood Urea Nitrogen 10 mg/dL (8-23); Calcium 9.4 mg/dL (8.5-10.5); Carbon Dioxide 26 mmol/L (22-29); Chloride 103 mmol/L (98-107); Creatinine Clr Calc Pharmacy 79.1904; Globulin 3.2 g/dL (1.3-4.6); Glomerular Filtration Rate 98.8 mL/min (90-130); Glucose 162 mg/dL (65-115); Osmolality Calculated 291 mOsm/kg (285-295); Sodium 139 mmol/L (136-145); Total Bilirubin 0.6 mg/dL (0.15-1.2)
--- NOTE | 2023-06-22 06:09 | XACV_ITS ---
Exam Room: 2 Ht: 178 cm Wt: 89 kg BSA: 2.11 m2 Gender: Female : 1950 Any Known Allergies: Penicillins Exam Priority: Routine Procedure(s): Procedure Description: Diagnostic procedure Procedure Description: Left Heart Catheterization Procedure Description: Left ventriculography Procedure Description: Coronary Angiography Diagnostic Cath Status: Urgent Diagnostic Findings * No significant disease noted in the Left Main, Left Anterior Descending, Right, or Circumflex coronary arteries. * Coronary angiography shows right dominance. Conclusions 1. No significant disease noted in the Left Main, Left Anterior Descending, Right, or Circumflex coronary arteries. 2. Normal left ventricular systolic function. Ejection fraction of 65%. Recommendations * Aggressive risk factor modification. Will recommend long acting nitrates. * Outpatient cardiology follow up in 2-4 weeks. Interventional RX Recommendation: medical therapy and/or counseling Diagnostic RX Recommendation: medical therapy and/or counseling Anticoagulation: Heparin Ventriculography Ejection Fraction: 65.0 % Pressures Phase:Rest AO : 133 / 74 ( 94 ) @ 9:18:00 AM 108 / 79 ( 93 ) @ 9:20:00 AM 167 / 88 ( 118 ) @ 9:24:00 AM 166 / 86 ( 118 ) @ 9:24:00 AM LV : 175 / -11 / 9 @ 9:23:00 AM 173 / -3 / 23 @ 9:24:00 AM 163 / -2 / 21 @ 9:24:00 AM Valves Phase:DefaultPhase AV : 20.0 @ 8:29:09 AM 20.0 @ 8:29:09 AM AV Mean Gradient: 32.0 @ 8:29:09 AM Clinical Evaluation EBL: 5mL-10mL Procedural Details Pre-Procedure Time Out. Identified patient by full name and date of as verbalized by the patient/guarantor. Does the consent match the physician's order: Yes. Accurate & Complete Informed Consent: Yes. Inpatient/Outpatient History & Physical on Chart: Yes. If H&P is completed, is and addenduem needed: No; If yes, is the addendum complete: N/A. Visualize and Verify Site with Patient/Guarantor: N/A. Relevant Radiology Images available: Yes. Pre-op teaching completed and patient verbalized understanding. The risks, benefits, and alternatives of sedation and/or procedure were discussed by physician. The patient agrees to continue. Procedure started. [facility] Clinical Fraility Score: 4: Vulnerable. Purchasing Administrator Indications: ACS > 24 hours. Chest Pain Symptom Assessment: Atypical Angina. Correct patient, site and procedure confirmed by cath team. Current diagnosis: NSTEMI. PERRLA. Strong, equal hand assault boat coxswain bilaterally. Lungs clear x 5 lobes. IV Site on Arrival: 18 gauge in the left anticubital. IV Fluids: 0.9% NaCl at KVO. 0 mL infused prior to manufacturing laborer. Oxygen started at 2liters/min via nasal canula. right groin was prepped with chloroprep then draped in the usual sterile fashion. right radial was prepped with chloroprep then draped in the usual sterile fashion. Physician arrived. Current Diagnosis : NSTEMI. Physician scrubbed in. Immediate Pre-Procedure Time Out. Correct Patient: Yes; Correct Procedure: Yes; Correct Site: Yes; Correct Patient Position: Yes; Correct Supplies: Yes; Dried Flammable Prep: Yes; Blood Products Available: N/A;. Lidocaine 1% infiltrated to the right radial. Arterial access obtained. A 5 chadian TIG catheter in over wire. Multiple views taken of left coronary artery. Catheter redirected to the RCA. Multiple views taken of right coronary artery. Catheter removed over the exchange wire. A 5 chadian Angled Pig catheter in over wire. EDP Sample taken: LV 175/-12,9; HR: 88 BPM; SpO2: 96%. LV gram performed in SANTO @ 10 mL/second for a total of 30 mL. EDP Sample taken: LV 173/-4,23; HR: 83 BPM; SpO2: 96%. Pullback taken: LV 163/-3,21; AO 167/88(118); Mean: 32mmHg, Peak to Peak: 20mmHg, SEP: 10sec/min; HR: 97 BPM; SpO2: 96%. Catheter removed over the exchange wire. A TR Band was successful obtaining hemostatsis at the Right Radial artery insertion site. Post Procedure: Pulses reassessed and unchanged. PERRLA. Strong, equal hand assault boat coxswain bilaterally. No VTE prophylaxis required. Medication's Wasted: Lidocaine 1% = 1 mL. Medication's Wasted: Nitro = 49.8 mg. Medication's Wasted: Heparin = 1000 UNITS mL. Medication's Wasted: Other = Fentanyl 50mcg Versed 1 mg. Total IV fluids: 30 mL. Complications: None. Estimated blood loss: 5mL-10mL. Responsiveness - Normal response to verbal stimuli; alert and oriented, PERRLA. Airway - Unaffected, no intervention required; spontaneous ventilation. Circulation: W/N/L, pulses unchanged. Nausea/Vomiting: No. Vital chart was stopped. Procedure completed. Patient transferred by bed to CPRU. Access Site Site: Right Radial artery Sheath Size: 6 Fr Hemostasis Method: TR Band Hemostasis Success: Successful Procedure Medications Start: 8:10 AM Stop: 8:10 AM Medication: Benadryl Amount: 25 mg Route: I.V. Start: 8:10 AM Stop: 8:10 AM Medication: Versed Amount: 1 mg Route: I.V. Start: 8:11 AM Stop: 8:11 AM Medication: Fentanyl Amount: 25 mcg Route: I.V. Start: 8:16 AM Stop: 8:16 AM Medication: Nitrogylcerin Amount: 200 mcg Route: I.A. Start: 8:17 AM Stop: 8:17 AM Medication: Heparin Amount: 5000 units Route: I.V. I, the attending physician, have reviewed and verified all procedure medications. Yes, all medications given per verbal order History/Risk Factors Hypertension: No Dyslipidemia: No Peripheral Arterial Disease (PAD): No Myocardial Infarction (NV): No Obesity: No Renal Disease: No Tobacco Use: Current/Recent(w/in 1 year) Prior Interventions PCI: No CABG: No Valve Surgery: No Report Signatures Finalized by Natanael Irby MD on 07/02/2023 10:25 AM
[2023-06-22] MEDS: clopidogrel 75 mg Tablet PO (07:54)
[2023-06-22] MEDS: aspirin 325 mg Tablet PO (07:54)
[2023-06-22] MEDS: pantoprazole DR 40 mg Tablet PO (07:54)
[2023-06-22] MEDS: atorvastatin 40 mg Tablet PO (07:54)
[2023-06-22] MEDS: duloxetine 60 mg Capsule PO (07:54)
[2023-06-22] MEDS: gabapentin 400 mg Capsule 800 MG PO (07:54)
[2023-06-22] MEDS: oxybutynin 5 mg Tablet PO (07:54)
--- NOTE | 2023-06-22 08:12 | W.PM.OPSUD ---
Surgery/Procedure H&P Update DATE OF PROCEDURE: June 22, 2023 DATE H&P PERFORMED: 06/21/23 H&P UPDATE INFORMATION: I have reviewed H&P completed within last 30 days, I have examined patient prior to procedure and No changes to prior documentation PREOP DIAGNOSIS: Worsening angina PRIMARY INDICATION FOR PROCEDURE: Worsening angina PLANNED PROCEDURE: Left heart cath with possible percuteneous coronary intervention PATIENT REASSESSED PRIOR TO SEDATION, WITH NO CHANGE NOTED: Yes PHYSICAL EXAM: alert, oriented x 3, clear to auscultation bilaterally and regular rate & rhythm AIRWAY EVAL/ANESTHESIA PLAN: normal airway, ASA IV, Local Anesthesia, Risks, benefits & alternatives of sedation and/or procedure discussed and Patient agrees to continue as planned ADDITIONAL INFORMATION: Moderate sedation
--- NOTE | 2023-06-22 08:30 | SUR.PHASEI ---
POST CATH NOTE Received patient from laborer vineyard. Status post cardiac catheterization via the right radial approach. TR Band in place and is hemostatic. Verbal post cath instructions went over with the patient. She understood well. Vitals and assessments per flowsheet. Informed to call for needs. Call light within reach.
--- NOTE | 2023-06-22 08:30 | SUR.PHASEI ---
POST CATH FLUIDS IV RATE 100 ML/HR OF 0.9% NS. No infusion difficulties.
--- NOTE | 2023-06-22 08:37 | P.PN_ITS ---
Subjective 2 Subjective: Patient had another episode of chest pain overnight. [place] like burning. Had coronary angigoram that does not reveal significant CAD. Vitals/I&O/Wt Last Vital Signs Temp 98.0 F 06/22/23 01:19 Pulse 99 06/22/23 05:30 Resp 22 H 06/22/23 04:34 BP 131/90 06/22/23 04:34 Pulse Ox 94 06/22/23 04:34 O2 Del Method Room Air 06/21/23 16:33 06/21/23 06/22/23 06/22/23 22:59 06:59 14:59 Intake Total 240 / 240 Output Total 500 / 500 Balance 240 / 240 -500 / -260 Weight last 48 hrs Weight 196 lb Weight 196 lb Weight 196 lb Physical Exam 2 Narrative: GENERAL: Patient is alert, awake and oriented x3. [] NECK: No jugular vein distension. [] HEENT: No cyanosis. No icterus. No pallor. [] HEART: Regular S1 and S2. No murmur, rub or gallop. [] LUNGS: Clear to auscultate bilaterally. [] EXTREMITIES: Lower extremities with no edema Data 06/22/23 04:14 06/22/23 04:14 A&P Assessment and plan (1) Hyperlipidemia: Qualifiers: Hyperlipidemia type: mixed hyperlipidemia Qualified Code(s): E78.2 - Mixed hyperlipidemia (2) Bilateral carotid artery stenosis: (3) Chest pain: Qualifiers: Chest pain type: unspecified Qualified Code(s): R07.9 - Chest pain, unspecified (4) Diabetes mellitus: Qualifiers: Diabetes mellitus type: type 2 Diabetes mellitus oil heaterman insulin use: without oil heaterman use Diabetes mellitus complication status: with other specified complication Qualified Code(s): E11.69 - Type 2 diabetes mellitus with other specified complication Plan Coronary angiogram not demonstrating severe CAD. Chest discomfort likely secondary to microvascular dysfunction versus vasospasms. Will recommend starting long-acting nitro. Thank you for involving us with care of this patient. Please call with questions. Attestations 2 Medical Necessity Statement*: Care not expected to cross 2 midnights. Coding Level of Care Code Acute Code for [facility] Fwd Diagnoses Mixed hyperlipidemia E78.2 Hyperlipidemia type: mixed hyperlipidemia Bilateral carotid artery stenosis I65.23 Chest pain, unspecified type R07.9 Chest pain type: unspecified Type 2 diabetes mellitus with other specified complication, without long-term current use of insulin E11.69 Diabetes mellitus type: type 2 Diabetes mellitus oil heaterman insulin use: without correction use Diabetes mellitus complication status: with other specified complication
[2023-06-22] MEDS: albuterol 2.5 mg/3 mL Neb INHALATION (13:10)
--- NOTE | 2023-06-22 13:40 | P.DS_ITS ---
Discharge Providers Date of Admission: 06/21/23 17:41 Date of Discharge: June 22, 2023 Attending Provider at Admission: July Rosado MD Attending Provider at Discharge: July Rosado MD Primary Care Provider: Jessica Hardin Diagnoses at Discharge Discharge Diagnosis (1) Chest pain: Status: Acute Qualifiers: Chest pain type: unspecified Qualified Code(s): R07.9 - Chest pain, unspecified (2) Worsening angina: Status: Acute Reason for Visit Reason for Visit: Chest Pain Brief History: 72-year-old lady with multiple risk fact ors for coronary artery disease presented to the hospital yesterday with multiple episodes of chest discomfort partially relieved by nitroglycerin. Please see H&P and cardiology consult note for details. Patient underwent coronary angiogram earlier today which did not reveal severe CAD. Chest discomfort likely secondary to mild microvascular disease versus vasospasms. Patient is currently chest pain-free. Doing well post angiogram. She is being discharged today with addition of Imdur 30 mg in addition to her regular scheduled medications. Follow-up with cardiology o utpatient. Physical Exam Narrative: General: No acute distress, AO x3 HEENT: PERRLA, pupils bilaterally equal and reactive, pallors not present Chest: Normal vesicular breath sounds, no added sounds, equal good air entry bilaterally CVS: S1-S2 regular, no murmurs, no tachycardia, no gallops, no rubs Abdomen: Soft, nontender, no organomegaly, bowel sounds present Neuro: No focal deficits, no facial deformity, AO x3, power 5/5 in all limbs Extremities: No edema clubbing or cyanosis Discharge Data Studies Completed and Pending Completed Studies During Hospitalization Category Date Time Status XR chest 1V portable [id number] Stat Exams 06/21/23 10:42 Completed Pending at discharge Category Date Time Status 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 Routine Exams 06/22/23 06:09 Taken Laboratory Results WBC 7.88 10^3/uL (3.29-11.43) 06/22/23 04:14 RBC 4.63 10^6/uL (3.85-5.65) 06/22/23 04:14 Hgb 14.30 g/dL (11.27-16.99) 06/22/23 04:14 Hct 43.2 % (36-47) 06/22/23 04:14 MCV 93.3 fl (85-98) 06/22/23 04:14 MCH 30.9 pg (27-33) 06/22/23 04:14 MCHC 33.1 g/dL (30-55) 06/22/23 04:14 RDW 12.4 % (12.1-15.1) 06/22/23 04:14 Plt Count 212 10^3/cmm (157-399) 06/22/23 04:14 MPV 9.8 fL (7.4-10.4) 06/22/23 04:14 Neut % (Auto) 62.1 % 06/22/23 04:14 Lymph % (Auto) 22.5 % 06/22/23 04:14 [place] % (Auto) 10.8 % 06/22/23 04:14 Eos % (Auto) 3.6 % 06/22/23 04:14 Baso % (Auto) 0.5 % 06/22/23 04:14 Neut # (Auto) 4.90 10^3/uL (1.8-7.7) 06/22/23 04:14 Lymph # (Auto) 1.8 10^3/uL (0.8-4.8) 06/22/23 04:14 [place] # (Auto) 0.9 10^3/uL (0.2-0.9) 06/22/23 04:14 Eos # (Auto) 0.3 10^3/uL (0.0-0.8) 06/22/23 04:14 Baso # (Auto) 0.0 10^3/uL (0.0-0.1) 06/22/23 04:14 Nucleated RBC % (auto) 0 % 06/22/23 04:14 Nucleated RBCs # 0.0 /100WBC 06/22/23 04:14 Sodium 139 mmol/L (136-145) 06/22/23 04:14 Potassium 4.0 mmol/L (3.5-5.1) 06/22/23 04:14 Chloride 103 mmol/L (98-107) 06/22/23 04:14 Carbon Dioxide 26 mmol/L (22-29) 06/22/23 04:14 Anion Gap 14.0 (5-19) 06/22/23 04:14 BUN 10 mg/dL (8-23) 06/22/23 04:14 Creatinine 0.6 mg/dL (0.5-0.9) 06/22/23 04:14 GFR Calculation 98.8 mL/min (90-130) 06/22/23 04:14 Glucose 162 mg/dL (65-115) H 06/22/23 04:14 Calculated Osmolality 291 mOsm/kg (285-295) 06/22/23 04:14 Calcium 9.4 mg/dL (8.5-10.5) 06/22/23 04:14 Total Bilirubin 0.6 mg/dL (0.15-1.2) 06/22/23 04:14 AST 9 U/L (0-32) 06/22/23 04:14 ALT 19 U/L (0-33) 06/22/23 04:14 Alkaline Phosphatase 116 U/L (35-105) H 06/22/23 04:14 Troponin T Baseline 18 ng/L (0-10) H 06/21/23 09:30 Troponin T 120 Minute 16.47 ng/L (0-10) H 06/21/23 11:30 Delta Troponin T -1.53 ABS# (0-10) L 06/21/23 11:30 Troponin T Hi Sens 6Hr 17.61 ng/L (0-10) H 06/21/23 15:47 Troponin T Hi Sens 6Hr Delta -0.39 ng/L (0-12) L 06/21/23 15:47 Total Protein 7.0 g/dL (6.6-8.7) 06/22/23 04:14 Albumin 3.8 g/dL (3.5-5.2) 06/22/23 04:14 Globulin 3.2 g/dL (1.3-4.6) 06/22/23 04:14 Vitals Last Vital Signs Temp 98.0 F 06/22/23 01:19 Pulse 109 H 06/22/23 13:14 Resp 18 06/22/23 13:14 BP 111/86 06/22/23 13:12 Pulse Ox 92 06/22/23 13:14 O2 Del Method Room Air 06/22/23 13:14 Discharge Plan Discharge Patient Disposition: Home Condition: Stable Prescriptions: New isosorbide mononitrate 30 mg tablet extended release 24 hr 30 mg PO DAILY Qty: 30 0RF Continued tramadol 50 mg tablet 50 mg PO Q8H PRN (Reason: pain) ferrous sulfate 27 mg iron tablet 27 mg PO DAILY Ozempic 0.25 mg or 0.5 mg(2 mg/1.5 mL) pen injector 0.25 mg SUBCUT Q7D Rx Instructions: ON TUESDAY metformin 500 mg tablet 500 mg PO BID pantoprazole [Protonix] 40 mg tablet,delayed release (DR/EC) 40 mg PO DAILY atorvastatin 40 mg tablet 40 mg PO DAILY duloxetine 60 mg capsule, delayed rel sprinkle 60 mg PO DAILY ropinirole 0.25 mg tablet 0.25 mg PO DAILY propranolol 120 mg capsule,extended release 24 hr 120 mg PO DAILY (DME) diabetic shoes with 3 inserts See Rx Instructions .Route .MEDSUPPLY Qty: 1 0RF Rx Instructions: As directed to the shoe mo clopidogrel [Plavix] 75 mg tablet 75 mg PO DAILY Qty: 1 0RF Hold Instructions: Resume on 09/02/21. nitroglycerin 0.4 mg tablet, sublingual 0.4 mg sublingual Q5M PRN (Reason: chest pain) Qty: 25 2RF Rx Instructions: do not exceed 3 doses per episode gabapentin 800 mg tablet 800 mg PO TID clonazepam 0.5 mg tablet 0.5 mg PO DAILY PRN (Reason: Anxiety) nicotine 21 mg/24 hr Patch 24 Hour 1 patch transdermal Q24H Qty: 90 0RF albuterol sulfate 90 mcg/actuation HFA aerosol inhaler 4 inh inhalation Q8H PRN (Reason: shortness of breath or wheezing) Qty: 8.5 0RF oxybutynin chloride 5 mg tablet 5 mg PO DAILY Discharge Orders: Discharge Order (Routine); Ordered 06/22/23 Ordered By: July Rosado Referrals: Kath Laird FNP [Nurse Practitioner] - 07/07/23 2:00 pm Jessica Hardin [Primary Care Provider] - 06/27/23 10:30 am Patient Instructions: Isosorbide Mononitrate (By mouth) (Imdur, Imdur ER, Ismo), Hypoxia (GEN), Heart Catheterization (DC), Chest Pain Stoplight, Opioid Safety, Post Angiogram Home Care Instructions Discharge Attestations Time Spent in Discharge Care*: greater than 30 min Quality Metrics Clinical Quality Measures [ No reported AMI, CVA or VTE this stay] Coding Level of Care Code Acute Code for Chg Fwd Diagnoses Chest pain, unspecified type R07.9 Chest pain type: unspecified Worsening angina I20.0
== END 2023-06-22 14:15 | disposition home or self-care (01) ==
LOC: ER 11:13 → CSU 14:56
PROVIDERS: Internal Medicine; Admitting Provider Student in an Organized Health Care Education/Training Program; Emergency Provider Family Medicine; PCP Nurse Practitioner Family; Visit Provider Student in an Organized Health Care Education/Training Program
DX: R07.89 Other chest pain (principal); I20.0 Unstable angina; E78.2 Mixed hyperlipidemia; I65.23 Occlusion and stenosis of bilateral carotid arteries; E11.69 Type 2 diabetes mellitus with other specified complication; Z86.73 Personal history of transient ischemic attack (TIA), and cerebral infarction without residual deficits; Z79.02 Long term (current) use of antithrombotics/antiplatelets; G47.33 Obstructive sleep apnea (adult) (pediatric); F17.210 Nicotine dependence, cigarettes, uncomplicated; Z79.84 Long term (current) use of oral hypoglycemic drugs
CPT/HCPCS: 36415; 71045; 80053; 84484; 85025; 93005; 93458; 94640; 96374; 96375; 99152; 99153; 99285; C1769; C1887; C1894; G0378; J1200; J1644; J2250; J3010; J3490; J7030; J7613; Q9967

== ENCOUNTER → 2023-08-09 10:57 | Outpatient (BNVA) | payer MEDICARE, MEDICAID, SELFPAY | PROVIDERS: PCP Nurse Practitioner Family; Visit Provider Podiatrist Foot & Ankle Surgery | DX: M20.42 Other hammer toe(s) (acquired), left foot (principal); B35.1 Tinea unguium; G62.9 Polyneuropathy, unspecified; L84 Corns and callosities; L60.0 Ingrowing nail; E11.69 Type 2 diabetes mellitus with other specified complication; Z79.84 Long term (current) use of oral hypoglycemic drugs | CPT/HCPCS: 11721; 99213 ==

== ENCOUNTER → 2023-10-13 10:37 | Outpatient (BNVA) | payer MEDICARE, MEDICAID, SELFPAY | PROVIDERS: PCP Nurse Practitioner Family; Visit Provider Podiatrist Foot & Ankle Surgery | DX: B35.1 Tinea unguium (principal); M20.42 Other hammer toe(s) (acquired), left foot; G62.9 Polyneuropathy, unspecified; L84 Corns and callosities; L60.0 Ingrowing nail; E11.69 Type 2 diabetes mellitus with other specified complication; E11.42 Type 2 diabetes mellitus with diabetic polyneuropathy; Z79.84 Long term (current) use of oral hypoglycemic drugs | CPT/HCPCS: 11721 ==

== ENCOUNTER → 2023-11-01 13:17 | Outpatient (BNVA) | payer MEDICARE, MEDICAID, SELFPAY | PROVIDERS: PCP Nurse Practitioner Family; Visit Provider Nurse Practitioner Family | DX: L82.1 Other seborrheic keratosis (principal); L57.8 Other skin changes due to chronic exposure to nonionizing radiation; D22.5 Melanocytic nevi of trunk; Z80.8 Family history of malignant neoplasm of other organs or systems; L57.0 Actinic keratosis; L82.0 Inflamed seborrheic keratosis; L81.4 Other melanin hyperpigmentation | CPT/HCPCS: 17000; 17110; 99213 ==

== ENCOUNTER → 2024-01-05 14:06 | Outpatient (BNVA) | payer MEDICARE, MEDICAID, SELFPAY | PROVIDERS: PCP Nurse Practitioner Family; Visit Provider Podiatrist Foot & Ankle Surgery | DX: M20.42 Other hammer toe(s) (acquired), left foot (principal); E11.69 Type 2 diabetes mellitus with other specified complication; B35.1 Tinea unguium; G62.9 Polyneuropathy, unspecified; L84 Corns and callosities; Z79.84 Long term (current) use of oral hypoglycemic drugs | CPT/HCPCS: 11721; 73630; 99213 ==

== ENCOUNTER → 2024-03-16 13:23 | Outpatient (BNVA) | payer MEDICARE, MEDICAID, SELFPAY | PROVIDERS: PCP Nurse Practitioner Family; Visit Provider Podiatrist Foot & Ankle Surgery | DX: B35.1 Tinea unguium (principal); M20.42 Other hammer toe(s) (acquired), left foot; G62.9 Polyneuropathy, unspecified; L84 Corns and callosities; E11.69 Type 2 diabetes mellitus with other specified complication; Z79.84 Long term (current) use of oral hypoglycemic drugs | CPT/HCPCS: 11721 ==

== ENCOUNTER → 2024-03-20 10:29 | Outpatient (BNVA) | payer MEDICARE, MEDICAID, SELFPAY | PROVIDERS: PCP Nurse Practitioner Family; Visit Provider Internal Medicine Cardiovascular Disease | DX: I44.1 Atrioventricular block, second degree (principal); R07.9 Chest pain, unspecified | CPT/HCPCS: 93005 ==

== ENCOUNTER → 2024-05-14 05:51 | Day surgery (SDC) | payer MEDICARE, MEDICAID, SELFPAY ==
[2024-05-14] VITALS (11 sets, daily range): BP systolic 86–143; BP diastolic 60–81; PULSE 67–78; RESP 14–18; TEMP 36.3–36.6; O2SAT 96–98; BMI 28.7
--- NOTE | 2024-05-14 06:05 | ANES.PREANE2 ---
Pre-Anesthetic Assessment Height/Weight: Height 5 ft 10 in Preop Diagnosis: Left foot 2nd digit hammertoe Operation Date: 05/14/24 07:00 Proposed Procedures p Left 2nd digit amputation(Left) - Vladimir Shaw DPM Was Beta Chaparro taken within 24 hours: Yes Was Clonidine taken within 24 hours: N/A Social Tobacco and No alcohol Exam alert, oriented x 3 and regular rate & rhythm Decreased breath sounds bilaterally Airway Submandibular: within normal limits Cervical ROM: within normal limits Mallampati: Class IV Dentition: false Comments: Comments: Small mouth opening with dentures in, expect this to get better when she removes her dentures Anesthetic Plan ASA status: 3 Anesthesia: MAC Other: No prior issues with anesthesia NPO since yesterday History of MAME, wears CPAP Type 2 diabetes since on semaglutide. Last taken 05/04/2024. Patient also takes insulin GERD on Protonix Hypertension on propranolol COPD, current smoker. 50+ pack year history Prior CVA history. Last stroke in July with right sided weakness. Plavix taken yesterday Patient was seen by cardiology in March 2024. Cardiac clearance given Plan for MAC anesthetic Medications/Allergies Home Medications ?Medication ?Instructions ?Recorded ?Confirmed ?Last Taken ?Type atorvastatin 40 mg tablet 40 mg PO DAILY 11/21/19 05/10/24 05/10/24 History duloxetine 60 mg capsule,delayed 60 mg PO DAILY 11/21/19 05/10/24 05/10/24 History release sprinkle metformin 500 mg tablet 500 mg PO BID 11/21/19 05/10/24 05/10/24 History pantoprazole 40 mg tablet,delayed 40 mg PO DAILY 11/21/19 05/10/24 05/10/24 History release (Protonix) ropinirole 0.25 mg tablet 0.25 mg PO DAILY 11/21/19 05/10/24 05/10/24 History clopidogrel 75 mg tablet (Plavix) 75 mg PO DAILY #1 tab 01/20/21 05/10/24 05/10/24 Rx ferrous sulfate 27 mg iron tablet 27 mg PO DAILY 08/13/21 05/10/24 05/10/24 History semaglutide 0.25 mg or 0.5 mg (2 0.25 mg SUBCUT Q7D 08/13/21 05/10/24 05/04/24 History mg/1.5 mL) subcutaneous pen injector (Ozempic) tramadol 50 mg tablet 50 mg PO Q8H PRN pain 08/13/21 05/10/24 08/26/21 History nitroglycerin 0.4 mg sublingual 0.4 mg sublingual Q5M PRN chest 11/27/21 05/10/24 05/10/24 Rx tablet pain #25 tabs diabetic shoes with 3 inserts #1 ea 06/06/23 03/20/24 Unknown Rx clonazepam 0.5 mg tablet 0.5 mg PO DAILY PRN Anxiety 06/14/23 05/10/24 05/10/24 History gabapentin 800 mg tablet 800 mg PO TID 06/14/23 05/10/24 05/10/24 History albuterol sulfate 90 mcg/actuation 4 inh inhalation Q8H PRN shortness 06/16/23 05/10/24 Unknown Rx aerosol inhaler of breath or wheezing #8.5 grams nicotine 21 mg/24 hr daily 1 patch transdermal Q24H #90 ea 06/16/23 05/10/24 05/10/24 Rx transdermal patch oxybutynin chloride 5 mg tablet 5 mg PO DAILY 06/21/23 05/10/24 05/10/24 History isosorbide mononitrate 30 mg 30 mg PO DAILY #30 tabs 06/22/23 05/10/24 05/10/24 Rx tablet,extended release 24 hr insulin glargine 100 unit/mL (3 10 unit SUBCUT DAILY 03/20/24 05/10/24 05/10/24 History mL) subcutaneous pen (Lantus Solostar U-100 Insulin) propranolol 60 mg capsule,24 60 mg PO DAILY #90 caps 04/03/24 05/10/24 05/10/24 Rx hr,extended release Allergies Allergy/AdvReac Type Severity Reaction Status Date / Time morphine Allergy ALGY-Hives Verified 05/10/24 11:30 Penicillins Allergy ALGY-Hives Verified 05/10/24 11:30 PFS Anesthesia Medical History Smoking addiction Hx of stroke associated with dehydration Bilateral carotid artery stenosis MAME (obstructive sleep apnea) 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 Pain management contract signed Hyperlipidemia Tremor of both hands RLS (restless legs syndrome) Surgical History History of colonoscopy Hx of hysterectomy Hx of knee surgery Hx of cholecystectomy Family History Other Brain tumor COPD (chronic obstructive pulmonary disease) Congestive heart failure (CHF) Dementia Diabetes Denies family history of Anesthesia complication Social History Smoking and tobacco/nicotine status: current every day tobacco/nicotine user (1/2 pack a day X 50 years) cigarettes Packs smoked per day: 10 Alcohol intake: never Substance/Drug Use: never Data Anesthesia Cardiac Studies: Echocardiogram 06/14/23 Sestamibi Stress Test (Cardiology) 11/24/20
[2024-05-14] MEDS: CELEcoxib 200 mg Capsule 400 MG PO (06:20)
[2024-05-14] MEDS: gabapentin 300 mg Capsule PO (06:21)
[2024-05-14] MEDS: sodium chloride 0.9% 1,000 ML 30 ML IV (06:22)
[2024-05-14 06:33] LABS: Glucose Point of Care 115 mg/dL (70-110)
--- NOTE | 2024-05-14 06:49 | W.PM.OPSFHP ---
Same Day Surgery H&P Indication for Procedure/HPI DATE OF PROCEDURE: May 14, 2024 CHIEF COMPLAINT/INDICATIONFOR SURGICAL PROCEDURE: Left foot 2nd hammertoe PREOP DIAGNOSIS: Left foot 2nd digit hammertoe PLANNED PROCEDURE: Operation Date: 05/14/24 07:00 Proposed Procedures p Left 2nd digit amputation(Left) - Vladimir Shaw DPM Medications/Allergies* Home Medications ?Medication ?Instructions ?Recorded ?Confirmed ?Type atorvastatin 40 mg tablet 40 mg PO DAILY 11/21/19 05/10/24 History duloxetine 60 mg capsule,delayed 60 mg PO DAILY 11/21/19 05/10/24 History release sprinkle metformin 500 mg tablet 500 mg PO BID 11/21/19 05/10/24 History pantoprazole 40 mg tablet,delayed 40 mg PO DAILY 11/21/19 05/10/24 History release (Protonix) ropinirole 0.25 mg tablet 0.25 mg PO DAILY 11/21/19 05/10/24 History ferrous sulfate 27 mg iron tablet 27 mg PO DAILY 08/13/21 05/10/24 History semaglutide 0.25 mg or 0.5 mg (2 0.25 mg SUBCUT Q7D 08/13/21 05/10/24 History mg/1.5 mL) subcutaneous pen injector (Ozempic) tramadol 50 mg tablet 50 mg PO Q8H PRN pain 08/13/21 05/10/24 History clonazepam 0.5 mg tablet 0.5 mg PO DAILY PRN Anxiety 06/14/23 05/10/24 History gabapentin 800 mg tablet 800 mg PO TID 06/14/23 05/10/24 History oxybutynin chloride 5 mg tablet 5 mg PO DAILY 06/21/23 05/10/24 History insulin glargine 100 unit/mL (3 10 unit SUBCUT DAILY 03/20/24 05/10/24 History mL) subcutaneous pen (Lantus Solostar U-100 Insulin) Allergies/Adverse Reactions Allergy/AdvReac Type Severity Reaction Status Date / Time morphine Allergy ALGY-Hives Verified 05/10/24 11:30 Penicillins Allergy ALGY-Hives Verified 05/10/24 11:30 Current Medications: Generic Name Dose Route Start Last Admin Trade Name Freq PRN Reason Stop Dose Admin Sodium Chloride 1,000 mls @ 30 mls/hr 05/14/24 06:00 05/14/24 06:22 Sodium Chloride 0.9% IV 05/15/24 05:59 30 mls/hr .Q24H GABRIEL Administration Pertinent History/Comorbid Conditions* Medical History (Updated 03/26/24 @ 18:14 by Bryson Jimenez MD) Smoking addiction Hx of stroke associated with dehydration Bilateral carotid artery stenosis MAME (obstructive sleep apnea) Diabetes mellitus FDC (current) use of opiate analgesic Pain management contract signed Hyperlipidemia Tremor of both hands RLS (restless legs syndrome) Surgical History (Updated 01/24/23 @ 13:12 by Bora Monsivais MD) History of colonoscopy Hx of hysterectomy Hx of knee surgery Hx of cholecystectomy Family History (Updated 04/02/20 @ 10:35 by Aranza Tripathi RN) Brain tumor Diabetes Congestive heart failure (CHF) Dementia COPD (chronic obstructive pulmonary disease) Denies family history of Anesthesia complication Social History Smoking and tobacco/nicotine status: current every day tobacco/nicotine user (1/2 pack a day X 50 years) cigarettes Packs smoked per day: 10 Alcohol intake: never Substance/Drug Use: never Pertinent Exam Findings alert, oriented x 3, clear to auscultation bilaterally, regular rate & rhythm, operative site marked and procedure specific exam findings BELOW IS A FOCUSED LOWER EXTREMITY EXAM GENERAL: A&O x 3 VASCULAR: DP/PT pulses diminished with delayed capillary refill DERMATOLOGICAL: Diffuse plantar xerosis to bilateral feet. Clean, dry interspaces bilaterally. Thickened, elongated, dystrophic, discolored nails x10 with subungual debris. Digital hair is absent. Distal digits are cool to touch. Distal skin is thin and shiny with ruborous appearance. Nucleated hyperkeratotic lesion plantar aspect of second tarsal head right foot MUSCULOSKELETAL: Ankle joint and hindfoot range of motion within normal limits bilaterally. No tenderness with palpation of medial, lateral or anterior ankle bilaterally. No tenderness with palpation of lateral ankle ligaments bilaterally. No pain with palpation of midfoot bilaterally. 5/5 muscle strength in all 4 quadrants of the lower extremity when tested against resistance. Rigid PIPJ contracture of left foot second digit with dorsal contracture of the metatarsophalangeal joint. NEUROLOGICAL: Neurological sensation to the affected foot and ankle is diminished through L4-S1 dermatomes via 10g SWMF, diminished sensation extends proximally to the level of the MTPJ Recommendations Surgery/Procedure today Other Plans: Left foot 2nd digit amputation Coding Level of Care Code Acute Code for Chg Fwd
[2024-05-14] MEDS: clindamycin 600 MG/50 ML PREMIX 100 MG IV (06:59)
[2024-05-14] MEDS: BUPivacaine 0.5% INJ 30 mL 20 ML INJECTION (07:11)
--- NOTE | 2024-05-14 07:28 | W.PM.BPON ---
Date of procedure: 05/14/2024 Surgeon name: Dr. Vladimir Shaw D.P.M. Coupon Manifest Clerk(s) name(s): Erica Procedure(s) performed: Left foot second toe amputation Description of findings: Hammertoe left foot second digit Estimated blood loss: 2 cc Tourniquet time: 11-minute Specimen(s) removed: Left foot second toe Post-operative diagnosis: Left foot second toe hammertoe
--- NOTE | 2024-05-14 07:31 | PM.OP ---
Operative Report Date of procedure: May 14, 2024 Surgeon: Vladimir Shaw DPM Procedure: Date of procedure: 05/14/2024 Pre-op diagnosis: Left foot second digit hammertoe Post-op diagnosis: Same Post-op findings: Left second hammertoe Procedure done: Left foot second digit amputation CPT 92327 Implants: None Specimens removed: Left foot second digit Surgeon: Dr. Vladimir Shaw DPM Professor Of Oceanography: Erica Estimated blood loss: 2 cc Tourniquet time: 11 minutes Complications: None Patient is a 73-year-old female that has a history of chronic second hammertoe contracture with history of dorsal ulceration of proximal interphalangeal joint. The patient has had the aforementioned chief complaint for some time. Conservative treatment measures have been attempted and the patient has opted for surgical intervention at this time. A lengthy discussion regarding the procedure, including risks and complications has been had with the patient and is noted in the recent clinic note. Written and verbal consent have been obtained. All patient questions have been answered to the patient?s satisfaction. No written or verbal guarantees have been given or implied. The patient has been NPO since midnight. The history has been reviewed and the history and physical is current. The signed consent was confirmed and placed in the patient chart. Patient imaging has been reviewed and is consistent with the diagnosis. Under mild sedation, the patient was brought into the operating room and placed on the table in the supine position. IV antibiotics were given by the anesthesia team as preoperative surgical prophylaxis. IV sedation was then performed by the anesthesiateam. A pneumatic tourniquet was then placed about the left ankle. The operative extremity was then prepped and draped in the usual fashion. The extremity was then elevated and exsanguinated before the tourniquet was inflated to 250 mmHg. After inflation, the following procedure was then performe Attention was directed to the left foot where an elliptical incision was made surrounding the second digit at the base of the second toe. Full-thickness incision was made using #15 blade. Dissection was carried down to the level of the metatarsophalangeal joint. Soft tissue attachments of the joint were resected and the second digit was passed from the operative field to be sent as surgical specimen. Hemostasis was achieved via electrocautery. The wound was then closed with 4-0 nylon in simple interrupted fashion. The tourniquet was let down and good hyperemic response was noted to all remaining digits of the left foot. Incision site was dressed with Xeroform, 4 x 4 gauze, Kerlix, [place]. The patient tolerated the procedure and anesthesia well and without complication. The patient was transported from the operating room to the recovery room with vital signs stable and vascular status intact to all digits of the left foot. The patient was given both written and verbal instructions to remain minimally weightbearing to the operative extremity, to keep dressings/splint clean, dry and intact and to take pain medication as directed. The patient will follow-up in the outpatient setting at their scheduled appointment. The patient was discharged with my personal number and was instructed to call if any questions or issues should arise. They were discharged home once anesthesia criteria was met.
--- NOTE | 2024-05-14 08:50 | ANE.PACU2 ---
Inpatient post-anesthesia follow up: Airway intact: Yes Vital signs: Temperature 97.4 F Pulse Rate 67 Respiratory Rate 18 Blood Pressure 128/81 Pulse Oximetry 97 Oxygen Delivery Me thod Room Air Oxygen Flow Rate 6 Fraction of Inspir ed Oxygen Hydration adequate: Yes Nausea and vomiting: No Pain level: 1 Mental status: Baseline
== END | disposition home or self-care (01) ==
PROVIDERS: PCP Nurse Practitioner Family; Visit Provider Podiatrist Foot & Ankle Surgery
PROC: (CPT 28820; principal; 2024-05-14 07:00)
DX: M20.42 Other hammer toe(s) (acquired), left foot (principal); G47.33 Obstructive sleep apnea (adult) (pediatric); E11.9 Type 2 diabetes mellitus without complications; Z79.4 Long term (current) use of insulin; K21.9 Gastro-esophageal reflux disease without esophagitis; I10 Essential (primary) hypertension; J44.9 Chronic obstructive pulmonary disease, unspecified; Z86.73 Personal history of transient ischemic attack (TIA), and cerebral infarction without residual deficits; Z79.02 Long term (current) use of antithrombotics/antiplatelets; F17.210 Nicotine dependence, cigarettes, uncomplicated
CPT/HCPCS: 28820; 36416; 82962; 88305; 88311; J2704; J3010; J3490; J7030

== ENCOUNTER → 2024-05-28 14:35 | Outpatient (BNVA) | payer MEDICARE, MEDICAID, SELFPAY | PROVIDERS: PCP Nurse Practitioner Family; Visit Provider Podiatrist Foot & Ankle Surgery | DX: Z89.429 Acquired absence of other toe(s), unspecified side (principal); Z98.890 Other specified postprocedural states | CPT/HCPCS: 99213 ==

== ENCOUNTER → 2024-06-18 12:48 | Outpatient (BNVA) | payer MEDICARE, MEDICAID, SELFPAY | PROVIDERS: PCP Nurse Practitioner Family; Visit Provider Podiatrist Foot & Ankle Surgery | DX: Z89.429 Acquired absence of other toe(s), unspecified side (principal) | CPT/HCPCS: 99213 ==

== ENCOUNTER → 2024-07-02 09:52 | Outpatient (BNVA) | payer MEDICARE, MEDICAID, SELFPAY | PROVIDERS: PCP Nurse Practitioner Family; Visit Provider Anesthesiology Pain Medicine | DX: M54.9 Dorsalgia, unspecified (principal); M54.2 Cervicalgia; M47.816 Spondylosis without myelopathy or radiculopathy, lumbar region; M54.16 Radiculopathy, lumbar region; M43.06 Spondylolysis, lumbar region; M48.061 Spinal stenosis, lumbar region without neurogenic claudication | CPT/HCPCS: 99214 ==

== ENCOUNTER → 2024-07-23 13:31 | Outpatient (BNVA) | payer MEDICARE, MEDICAID, SELFPAY | PROVIDERS: PCP Nurse Practitioner Family; Visit Provider Anesthesiology Pain Medicine | DX: M54.9 Dorsalgia, unspecified (principal); M25.569 Pain in unspecified knee; M54.2 Cervicalgia; M47.816 Spondylosis without myelopathy or radiculopathy, lumbar region; M54.16 Radiculopathy, lumbar region; M43.06 Spondylolysis, lumbar region; M48.061 Spinal stenosis, lumbar region without neurogenic claudication; F17.210 Nicotine dependence, cigarettes, uncomplicated; M25.561 Pain in right knee; M25.562 Pain in left knee | CPT/HCPCS: 99214 ==

== ENCOUNTER → 2024-08-02 10:00 | Outpatient (BNVA) | payer MEDICARE, MEDICAID, SELFPAY | PROVIDERS: PCP Nurse Practitioner Family; Visit Provider Student in an Organized Health Care Education/Training Program | DX: Z12.11 Encounter for screening for malignant neoplasm of colon (principal) | CPT/HCPCS: 99024; 99204 ==

== ENCOUNTER → 2024-11-19 09:12 | Outpatient (BNVA) | payer MEDICARE, MEDICAID, SELFPAY | PROVIDERS: PCP Nurse Practitioner Family; Visit Provider Nurse Practitioner Family | DX: L81.4 Other melanin hyperpigmentation (principal); L57.8 Other skin changes due to chronic exposure to nonionizing radiation; L82.1 Other seborrheic keratosis; D22.5 Melanocytic nevi of trunk; Z80.8 Family history of malignant neoplasm of other organs or systems; D48.5 Neoplasm of uncertain behavior of skin; L57.0 Actinic keratosis | CPT/HCPCS: 11102; 17000; 99213 ==

== ENCOUNTER → 2024-12-05 09:01 | Outpatient (BNVA) | payer MEDICARE, MEDICAID, SELFPAY | PROVIDERS: PCP Nurse Practitioner Family; Visit Provider Dermatology | DX: C44.529 Squamous cell carcinoma of skin of other part of trunk (principal) | CPT/HCPCS: 11602; 13101 ==